=== PATIENT | male | born 1945 | race Caucasian/White ===

== ENCOUNTER 2024-04-25 04:41 | Inpatient (IN) | payer MEDICARE, SELFPAY ==
[2024-04-25] VITALS (20 sets, daily range): BP systolic 106–186; BP diastolic 42–104; BMI 30.1; BMI 29.8
--- NOTE | 2024-04-25 01:49 | ED.GENMED ---
History of Present Illness
<LASHA Castanon - Last Filed: 04/25/24 03:57>
General
Chief Complaint: Abdominal Pain
Source: patient
Time Seen by Provider: 04/25/24 01:15
Travel History
Have you had any contact with someone who has COVID-19?: No
Do you have any symptoms of coronavirus? Fever > 100 degrees, chills, cough, shortness of breath, sore throat, loss of taste or smell, muscle aches, or headache?: No
History of Present Illness
History of Present Illness:
79 year old male with hx of chronic back pain, autoimmune hepatitis, DM, s/p CABG with cardiac stents who presents with worsening RUQ abdominal pain that began at 1600 Thursday. Pain was initially dull at onset and is now sharp. States pain has been
constant but will spasm. Pain radiates down the R abdomen and is currently a 10/10. Pain worsens with deep breathing and movement. He has not taken anything for the pain. Pain is not associated with meals. He reports associated nausea. Admits to
diarrhea x 5 months, states he was treated with abx by PCP and currently taking fiber supplements with minimal improvement. Denies vomiting, constipation, chest pain, heartburn, SOB, increased belching, flank pain. Pt was last on Imuran in 2018 for
his autoimmune hepatitis. He is followed by GI and cardiology at [facility].
Review of Systems
<LASHA Castanon - Last Filed: 04/25/24 03:57>
Review of Systems
Allergies reviewed?: Yes
All Other Systems: ROS reviewed and negative except as documented in HPI and ROS
Constitutional: Reports no symptoms
EENT: Reports no symptoms
Respiratory: Reports no symptoms
Cardiac: Reports no symptoms
ABD/GI: Reports abdominal pain, nausea and diarrhea
: Reports no symptoms
Musculoskeletal: Reports back pain
Skin: Reports no symptoms
Neurological: Reports no symptoms
Endocrine: Reports no symptoms
Hematologic/Lymphatic: Reports no symptoms
Psychiatric: Reports no symptoms
Phy Exam
<LASHA Castanon - Last Filed: 04/25/24 03:57>
General Physical Exam
General Presentation: well appearing and no apparent distress
General age: appears stated age
General Skin: warm and dry
General Habitus: normal
General Mental: alert
General Hydration: appears well hydrated
Cardiovascular Exam
Cardiovascular Exam: regular rate/rhythm, no edema, no gallop and no murmur
Pulmonary Exam
Pulmonary Exam: lungs clear, no respiratory distress, no rales, no crackles, no rhonchi, no wheezing and no cough
Gastrointestinal Exam
Gastrointestinal Exam: normal bowel sounds, no organomegaly, no pulsatile mass, non distended and guarding
Palpation: right upper quadrant: Moderate tenderness
Skin Exam
Skin Exam: normal color and warm/dry
Psychiatric Exam
Psychiatric Exam: normal mood/affect
Course
<LASHA Castanon - Last Filed: 04/25/24 03:57>
Orders/Labs/Results
Orders:
Orders
04/25/24 01:36
CBC/With Diff [Complete Blood Count/With Diff] Urgent
CMP [Comprehensive Metabolic Panel] Urgent
Lipase Urgent
04/25/24 01:37
EKG [Electrocardiogram (*1)] Urgent
Reason for Study: Abdominal Pain
EKG- Treatment ONCE
04/25/24 02:10
0.9% Sodium Chloride 1000 ml [Nss] 1,000 ml IV 500 mls/hr
Morphine Sulfate 4 mg IV NOW STA
Ondansetron Injectable [Zofran] 4 mg IV NOW STA
04/25/24 02:11
CT Abd/pelvis W Iv Cont Urgent
Comment:
Reason For Exam: RUQ abd pain x 12 hours-progressive
04/25/24 04:12
Lactic Acid Urgent
04/25/24 04:28
Morphine Sulfate 4 mg IV NOW STA
04/25/24 04:29
Admit/Transfer Patient As Directed
Co-Sign Provider:
Level of Care: Inpatient admission
Assign to:: Medical/Surgical
Physician / Group: [email or web address]
Diagnosis: cecal volvulus
Reason for Hospitalization: cecal volvulus
Expected length of stay greater than two midnights?: Yes
ELOS- Estimated Length of Stay in days: 3
I certify the patient meets the requirements for IP care: Yes
Code Status As Directed
Resuscitation Status: Full Code
Abnormal Lab Results
04/25/24
01:36
WBC 13.8 H 10^3/uL
(4.8-10.8)
RBC 4.20 L 10^6/uL
(4.70-6.10)
Hct 37.3 L %
(39.0-52.0)
MCH 31.7 H pg
(27.0-31.0)
Abs Immat Gran (auto) 0.1 H 10^3/uL
(0-0.05)
Absolute Neuts (auto) 12.2 H 10^3/uL
(1.4-6.5)
Absolute Lymphs (auto) 0.5 L 10^3/uL
(1.2-3.4)
Absolute Monos (auto) 1.0 H 10^3/uL
(0.1-0.6)
Neutrophils % 88.3 H %
(42.2-75.2)
Lymphocytes % 3.8 L %
(20.5-51.1)
Carbon Dioxide 19 L mmol/L
(22-30)
BUN 21 H mg/dl
(9-20)
Creatinine 0.6 L mg/dL
(0.7-1.3)
Glucose 238 H mg/dl
(70-99)
AST 66 H U/L
(17-59)
04/25/24 01:36
04/25/24 01:36
Vital Signs
Initial and Last Documented VS:
Initial Vital Signs
Temp Pulse Resp BP Pulse Ox
98.3 F 58 24 186/80 95
04/25/24 00:57 04/25/24 00:57 04/25/24 00:57 04/25/24 00:57 04/25/24 00:57
Last Documented Vital Signs
Temp Pulse Resp BP Pulse Ox
98.3 F 71 23 186/80 92
04/25/24 00:57 04/25/24 02:30 04/25/24 02:30 04/25/24 00:57 04/25/24 02:15
<Crystal Willis, DO - Last Filed: 04/25/24 04:41>
Orders/Labs/Results
Orders:
Orders
04/25/24 01:36
CBC/With Diff [Complete Blood Count/With Diff] Urgent
CMP [Comprehensive Metabolic Panel] Urgent
Lipase Urgent
04/25/24 01:37
EKG [Electrocardiogram (*1)] Urgent
Reason for Study: Abdominal Pain
EKG- Treatment ONCE
04/25/24 02:10
0.9% Sodium Chloride 1000 ml [Nss] 1,000 ml IV 500 mls/hr
Morphine Sulfate 4 mg IV NOW STA
Ondansetron Injectable [Zofran] 4 mg IV NOW STA
04/25/24 02:11
CT Abd/pelvis W Iv Cont Urgent
Comment:
Reason For Exam: RUQ abd pain x 12 hours-progressive
04/25/24 04:12
Lactic Acid Urgent
04/25/24 04:28
Morphine Sulfate 4 mg IV NOW STA
04/25/24 04:29
Admit/Transfer Patient As Directed
Co-Sign Provider:
Level of Care: Inpatient admission
Assign to:: Medical/Surgical
Physician / Group: [email or web address]
Diagnosis: cecal volvulus
Reason for Hospitalization: cecal volvulus
Expected length of stay greater than two midnights?: Yes
ELOS- Estimated Length of Stay in days: 3
I certify the patient meets the requirements for IP care: Yes
Code Status As Directed
Resuscitation Status: Full Code
Abnormal Lab Results
04/25/24
01:36
WBC 13.8 H 10^3/uL
(4.8-10.8)
RBC 4.20 L 10^6/uL
(4.70-6.10)
Hct 37.3 L %
(39.0-52.0)
MCH 31.7 H pg
(27.0-31.0)
Abs Immat Gran (auto) 0.1 H 10^3/uL
(0-0.05)
Absolute Neuts (auto) 12.2 H 10^3/uL
(1.4-6.5)
Absolute Lymphs (auto) 0.5 L 10^3/uL
(1.2-3.4)
Absolute Monos (auto) 1.0 H 10^3/uL
(0.1-0.6)
Neutrophils % 88.3 H %
(42.2-75.2)
Lymphocytes % 3.8 L %
(20.5-51.1)
Carbon Dioxide 19 L mmol/L
(22-30)
BUN 21 H mg/dl
(9-20)
Creatinine 0.6 L mg/dL
(0.7-1.3)
Glucose 238 H mg/dl
(70-99)
AST 66 H U/L
(17-59)
04/25/24 01:36
04/25/24 01:36
Vital Signs
Initial and Last Documented VS:
Initial Vital Signs
Temp Pulse Resp BP Pulse Ox
98.3 F 58 24 186/80 95
04/25/24 00:57 04/25/24 00:57 04/25/24 00:57 04/25/24 00:57 04/25/24 00:57
Last Documented Vital Signs
Temp Pulse Resp BP Pulse Ox
98.3 F 71 23 186/80 92
04/25/24 00:57 04/25/24 02:30 04/25/24 02:30 04/25/24 00:57 04/25/24 02:15
<LASHA Castanon - Last Filed: 04/25/24 03:57>
MDM/Problems Addressed
Differential Diagnosis Includes:
biliary colic, cholecystitis, appendicitis, diverticulitis, SBO, volvulus
MDM/Problems Addressed:
79 year old male who presents with RUQ abdominal pain since 1599.
Chronic conditions affecting care: DM and CAD
<LASHA Castanon - Last Filed: 04/25/24 03:57>
*Critical Care Note
Total Time (30-74mins, 75-104mins- exclusive of procedures): Not Applicable
<Crystal Willis DO - Last Filed: 04/25/24 04:41>
*Radiology
Radiology exam reviewed: radiology read reviewed
*Pulse Oximetry
Patient hypoxic: no
*EKG
Interpreted by ED Provider?: Yes
Comparison EKG: no comparison EKG present
Rate: normal
Rhythm: sinus
[place]: normal axis
Interval: normal interval
QRS Pattern: normal QRS
Ischemia: non-specific ST changes
*[employer] Interpretation
Rate: normal
Interpretation: normal
Rhythm: sinus
ED Attending Note
<LASHA Castanon - Last Filed: 04/25/24 03:57>
-
Portions of this chart may have been created with voice recognition software.� Occasional wrong word or��sound alike� substitutions may have occurred due to the inherent limitations of voice recognition software.
<Crystal Willis DO - Last Filed: 04/25/24 04:41>
ED Attending Note
Patient seen and examined by attending physician: Yes
I performed the substantive portion of visit, reviewed & personally made and approve the management plan that is documented in note by myself or PRITI.: Yes
I performed a history and physical exam of patient and discussed management with resident, I reviewed resident's note and agree with documented findings and plan of care.: Yes
ED Attending Note:
This is a 79-year-old gentleman who complains of right upper quadrant pain that began somewhat abruptly around 4 PM yesterday has been persistent since that time. No history of similar episodes of pain. He does admit to intermittent waves of
nausea but has had no vomiting. No chest pain but right upper quadrant pain is worse when he takes a deep breath. No flank pain, no fevers or chills. He did pass a small soft stool yesterday. No dysuria no urgency nor hematuria, no cough nor
chest pain.
Patient states he was sitting at [facility] for 4 to 5 hours and was told there would be an additional 4 to 5-hour wait thus his son picked him up and brought him to [place] where the son lives locally. Patient himself resides in
[place].
He has history of CAD status post CABG 2015 and underwent PTCA with stent December of this year. Plavix was started after stent and then a few weeks after this was noted to have paroxysmal atrial fibrillation and was started on Eliquis at that time.
He has prior history of autoimmune hepatitis noted with elevated LFTs without abdominal pain. Follows with GI at [facility] and was treated with several month course of oral steroids and 2 to 3 years of Imuran which was discontinued
in 2018. No recurrent episodes of hepatitis.
He has history of iig-lkwltos-wphfafmis diabetes, hypertension, hyperlipidemia, BPH. History of kidney stones and renal cysts. Current pain feels quite different from previous episodes of renal colic.
He is a non-smoker.
He admits to occasional alcohol.
He has not taken anything for pain.
GENERAL: 79-year-old gentleman appears his stated age, awake and alert, pleasant, appears moderately uncomfortable but cooperative.
EYE: anicteric
NECK: Supple, nontender, no meningismus, no significant adenopathy.
ENT: oral mucosa is minimally dry. No rhinorrhea.
CARDIAC: Regular rate and rhythm. no murmur.
LUNGS: Clear breath sounds bilaterally, no acute respiratory distress, no wheezes/rales/rhonchi
ABDOMEN: Rotund, soft, nondistended, exquisite tenderness right upper quadrant as well as moderate tenderness right lateral mid abdomen and mild tenderness right lower quadrant. Mild guarding right upper quadrant without rebound nor rigidity, no
cvat. normoactive BS.
NEUROLOGICAL: Alert and oriented x3, no focal neuro deficits.
SKIN: Warm and dry, normal color, skin intact. No rash.
MUSCULOSKELETAL: No C/C/E. peripheral pulses are full and equal b/l. No palpable tenderness.
PSYCH: Normal and appropriate interaction.
Concern for acute cholecystitis, right-sided diverticulitis, acute appendicitis. Other consideration is ischemic bowel, kidney stone/pyelonephritis. Pneumonia, right pleural effusion are much less likely.
Other consideration is recurrent autoimmune hepatitis.
Labs are pending.
Will medicate for pain, initiate IV fluids and plan for CT abdomen pelvis with IV contrast.
04/25/2024 04:01 AM
CAT scan shows cecal volvulus looped into the right upper quadrant with moderate dilation of the cecum. There is a swirling in the ascending mesocolon but no small bowel obstruction. No free air. Bilateral simple renal cyst. No hydronephrosis.
Patient is moderately more comfortable after an IV dose of morphine. IV fluids infusing.
Due to cecal volvulus, concern for potential ischemic bowel thus will check lactic acid.
Will consult general surgery and due to multiple medical issues, Will plan to admit to hospitalist service.
Discharge Plan
Departure
Patient Disposition: Admit
Date of Disposition: 04/25/24
Time of Disposition: 04:01
Admit to: Med/Surg
Admit to doctor: Mercedezy
Presentation/result/management discussed w/ accepting MD/DO: Hospitalist
Condition: Serious
Discharge Problem:
Cecal volvulus
Referrals:
UNKNOWN - PT DOES,NOT KNOW [Unknown Provider] -
Interventions
Interventions:
*Risk Screen - Suicide Last Done: 04/25/24 00:57
*General Assessment Last Done: 04/25/24 01:10
*Neglect/Abuse Screening Last Done: 04/25/24 00:57
ED- Fall Risk Assessment Last Done: 04/25/24 02:10
XV-Irijsc-Dyitskzgzn Assessment Last Done: 04/25/24 02:10
Discharge Date and Time
Print Language: GREEK
[2024-04-25 01:50] LABS: % Basophils 0.2 % (0-2); % Immature Granulocytes 0.4 % (0-0.5); % Lymphocytes 3.8 % (20.5-51.1); % Monocytes 7.3 % (1.7-9.3); % Neutrophils 88.3 % (42.2-75.2); Absolute Immature Granulocytes 0.1 10^3/uL (0-0.05); Absolute Lymphocytes 0.5 10^3/uL (1.2-3.4); Absolute Neutrophils 12.2 10^3/uL (1.4-6.5); Hematocrit 37.3 % (39.0-52.0); Hemoglobin 13.3 g/dL (13.0-18.0); Mean Corp Hgb Conc. 35.7 g/dL (33.0-37.0); Mean Corpuscular Hgb 31.7 pg (27.0-31.0); Mean Corpuscular Volume 88.8 fL (80.0-94.0); Mean Platelet Volume 9.6 fL (7.4-10.4); Nucleated Red Blood Cells % 0 % (-); Platelet Count 224 10^3/uL (130-400); Red Cell Dist. Width 13.8 % (11.5-14.5); White Blood Cell Count 13.8 10^3/uL (4.8-10.8)
[2024-04-25 02:07] LABS: ALT (SGPT) 49 U/L (0-50); AST (SGOT) 66 U/L (17-59); Albumin 4.6 g/dl (3.5-5.0); Alkaline Phosphatase 109 U/L (38-126); Blood Urea Nitrogen 21 mg/dl (9-20); Calcium 9.4 mg/dl (8.4-10.2); Carbon Dioxide 19 mmol/L (22-30); Chloride 107 mmol/L (98-107); Glucose 238 mg/dl (70-99); Lipase 41 U/L (23-300); Potassium 4.9 mmol/L (3.5-5.1); Sodium 138 mmol/L (135-145); Total Bilirubin 1.2 mg/dl (0.2-1.3); Total Protein 7.8 g/dl (6.3-8.2); eGFR > 60.00
[2024-04-25] MEDS: NSS 1000 IV ×2 (02:17→06:31)
[2024-04-25] MEDS: MORPHINE SULFATE 4 MG IV ×2 (02:17→04:31)
[2024-04-25] MEDS: ZOFRAN 4 MG IV (02:18)
--- NOTE | 2024-04-25 04:24 | HPS.HSE ---
Addendum entered and electronically signed by Rocky Beach MD 04/25/24 06:24:
DX: Cecal Volvulus
HX PCN allergy
Spiked T 101
No tachycardic
Tender RLQ with guarding
elevated WCC
- concern for sepsis
- BCx stat
- IV Aztreonam and IV Metronidazole
- Await Surgery evaluation
Original Note:
Family Physician
-
Family Physician: Bora Garcia
Chief Complaint
-
abdominal pain
History of Present Illness
79M HX PHX chronic LBP, autoimmune hepatitis, DM, s/p CABG with cardiac stents seen at ER:
Evaluation of Rt sided abdominal pain
- acute onset sice Sun day evening
- Initially RUQ pain - colicky but persistent then radiating to R abdomen
- associated nausea
- Denied emesis , constipation
- POS diarrhea for 5 months and taking fiber supplements with minimal improvement
Medical History
Past Medical History
Past Medical History: Reports Other
Additional Past Medical History:
Chronic LBP, autoimmune hepatitis, DM, s/p CABG with cardiac sten
Past Surgical History: Reports Other
Additional Past Surgical History:
s/p CABG with cardiac stents
Social History
Tobacco: Non-smoker
Alcohol: None
Drug: None
Family History
Family History: Not pertinent
Allergies / Home Medications
Allergies reflects when Allergies were last updated in [facility].
Home Medications with original date entered in [facility]
Allergy/Medication List:
Allergies
Allergy/AdvReac Type Severity Reaction Status Date / Time
Penicillins Allergy Unknown Verified 04/25/24 01:02
Pending Rx reconciliation
Review of Systems
-
Constitutional: Reports No Symptoms
EENT: Reports No Symptoms
Respiratory: Reports No Symptoms
Cardiac: Reports No Symptoms
Abdomen/GI: Reports See HPI
: Reports No Symptoms
Musculoskeletal: Reports No Symptoms
Skin: Reports No Symptoms
Neurological: Reports No Symptoms
Endocrine: Reports No Symptoms
Hematologic/Lymphatic: Reports No Symptoms
Psych: Reports No Symptoms
Physical Exam
Vital Signs
Vital Signs
Temp Pulse Resp BP Pulse Ox
98.3 F 71 23 186/80 92
04/25/24 00:57 04/25/24 02:30 04/25/24 02:30 04/25/24 00:57 04/25/24 02:15
Physical Exam
General: No Apparent Distress
HEENT: Anicteric
Respiratory: Clear
Cardiac: S1/S2 and Regular Rhythm; No Murmur
Breast: Deferred by me
GI: Soft, Non Distended, Tender (at Rt abdomen ) and Other ( Mild guarding at RUQ without rebound )
Rectal: Deferred by Provider
Genito-urinary: Deferred by me
Musculoskeletal: No Edema
Skin: Warm and Dry
Neuro: AO x 3
Psych: Calm
Laboratory Results
-
04/25/24 01:36
04/25/24 01:36
Laboratory Results
Total Bilirubin 1.2 mg/dl (0.2-1.3) 04/25/24 01:36
AST 66 U/L (17-59) H 04/25/24 01:36
ALT 49 U/L (0-50) 04/25/24 01:36
Alkaline Phosphatase 109 U/L (38-126) 04/25/24 01:36
Lipase 41 U/L (23-300) 04/25/24 01:36
Data Reviewed
-
Diagnostic Radiology: Discussed with Physician
Lab Data: Labs Reviewed by me
Impression/Plan
-
Reviewed VS: afebrile BP180/80
Data
WCC 13.8
Hgb 13.3
CO2 19
nl Cr nl eGFR
BG 238
Pending LA
AST [address] AP: Cecal volvulus. Moderate dilation of cecum.
NO PRIOR DH admission:
ASSESSMENT & PLAN
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
Tender RLQ > RUQ
- NPO and IVF
- PRN narcotic analgesia
- GS consulted
HX autoimmune hepatitis.
- last on Imuran in 2018
- followed by GI at [facility].
DM
- add ISS low
HX CABG with cardiac stents
- Pending Rx reconciliation
- f/u with card at [facility]
DVT Px: SCD
Code: Full
Ip MS
[2024-04-25 04:36] LABS: Lactic Acid 1.5 mmol/L (0.7-2.0)
[2024-04-25] MEDS: FLAGYL 500 MG 100 IV ×3 (06:32→22:39)
[2024-04-25] MEDS: STERILE WATER FOR INJECTION 10 ML IV ×3 (06:33→20:30)
[2024-04-25] MEDS: AZACTAM 1000 MG IV ×2 (06:33→14:17)
--- NOTE | 2024-04-25 09:03 | PTCARENOTE ---
Patient to OR for open right colectomy
--- NOTE | 2024-04-25 09:20 | WOUNDNOTE ---
[facility] RN note: AARON Krueger requested stoma marking for patient. Dr. Jiang stated R side stoma marking. Patient seen in OR holding area. Stoma marked patient RUQ over the rectus muscle avoiding skin creases and rib cage. RLQ not advisable d/t
high potential for post top deep skin creases with pouch leakage. Patient stoma marked in lying and sitting positions. RUQ stoma shayla 5.5cm to R of midline and 9.1cm above umbilical line. Patient instructed the surgeon makes the final decision with
stoma placement. Updated Dr. Jiang and Karley via tiger text. Patient stated he lives alone but he may stay with one of his daughters after discharge depending on his needs.
--- NOTE | 2024-04-25 09:37 | CON.MD ---
Consultation - Medical
-
Full consult to be dictated.
History, vitals, labs, imaging reviewed. Patient seen and examined.
79-year-old male without prior abdominal surgical history on both Xarelto and Plavix for cardiovascular issues with acute cecal volvulus confirmed on imaging. He is very tender in the right side and has a low-grade temperature of 101 Fahrenheit.
He has no prior history of GI issues. I discussed the situation with the patient in detail. Recommended a trip to the operating room for exploration and probable right colectomy/partial bowel resection and possible stoma. Risk and benefits
discussed. Risk described included but are not limited to bleeding, infection, anastomotic leak, anastomotic stricture, ureteral injury, bowel or solid organ injury, hernia formation, recurrence and anesthetic risk. I emphasized, given his
anticoagulants that he is at higher risk for intraoperative and postoperative bleeding. Will attempt to temporize this medically. All questions answered. Patient agrees to proceed. I did also via phone update the patient's next of kin, his son.
Thanks.
[2024-04-25] MEDS: OFIRMEV IV (10:18)
--- NOTE | 2024-04-25 11:48 | CM ---
Patient currently off the unit in the OR
--- NOTE | 2024-04-25 12:39 | W.IMMPOSTOP ---
Surgical Immed Post Op Note
-
Primary Surgeon: Kenrick Jiang MD
Assisting Surgeon: Karley Davis PA-C
Pre-op Diagnosis: Cecal volvulus
Post-op Diagnosis: Cecal volvulus
Procedure Performed: open right colectomy
Anesthesia Type: general
Specimen / Cultures: none
Estimated Blood Loss: 50ml
Complications: none
Operative Findings: consistent with cecal volvulus, distended ischemic cecum without evidence for perforation
[2024-04-25 13:19] LABS: % Basophils 0.3 % (0-2); % Eosinophils 0.6 % (0-6); % Immature Granulocytes 0.4 % (0-0.5); % Lymphocytes 5.5 % (20.5-51.1); % Monocytes 8.4 % (1.7-9.3); % Neutrophils 84.8 % (42.2-75.2); Absolute Eosinophils 0.1 10^3/uL (0-0.7); Absolute Immature Granulocytes 0.1 10^3/uL (0-0.05); Absolute Lymphocytes 0.8 10^3/uL (1.2-3.4); Absolute Monocytes 1.2 10^3/uL (0.1-0.6); Absolute Neutrophils 12.2 10^3/uL (1.4-6.5); Hematocrit 41.3 % (39.0-52.0); Hemoglobin 14.4 g/dL (13.0-18.0); Mean Corp Hgb Conc. 34.9 g/dL (33.0-37.0); Mean Corpuscular Hgb 31.6 pg (27.0-31.0); Mean Corpuscular Volume 90.8 fL (80.0-94.0); Nucleated Red Blood Cells % 0 % (-); Platelet Count 217 10^3/uL (130-400); Red Blood Cell Count 4.55 10^6/uL (4.70-6.10); Red Cell Dist. Width 14.2 % (11.5-14.5); White Blood Cell Count 14.3 10^3/uL (4.8-10.8)
[2024-04-25 13:22] LABS: Blood Urea Nitrogen 17 mg/dl (9-20); Calcium 8.3 mg/dl (8.4-10.2); Carbon Dioxide 22 mmol/L (22-30); Chloride 106 mmol/L (98-107); Estimated Creatinine Clearance 110 ml/min; Glucose 203 mg/dl (70-99); Potassium 4.6 mmol/L (3.5-5.1); Sodium 137 mmol/L (135-145); eGFR > 60.00
[2024-04-25 13:29] LABS: APTT 28.2 Sec (23.4-35.0); INR 1.15; PT 14.5 Sec (11.4-14.6)
[2024-04-25 13:47] LABS: Glucose - Point of Care 195 mg/dl (70-99)
[2024-04-25] MEDS: NORMOSOL-R 1000 IV (13:57)
[2024-04-25] MEDS: NOVOLOG vial 100 UNITS SC (14:00)
--- NOTE | 2024-04-25 14:32 | W.PN.HOSP.TC ---
Today's Communication/Plan
-
Add IV BB
Post OP EKG
Watch for any bleeding
NPO IVF
If has BP drop needs H and H
Assessment / Plan
Assessment / Plan
79-year-old with acute right-sided abdominal pain
CT abdomen and pelvis. Cecal volvulus in the right upper quadrant with moderate colonic distention and fecal material. Free fluid in the abdomen and pelvis likely reactive. Nonvisualization of the appendix. Findings suggestive of Meckel's
diverticulum with noncompaction. Nonobstructive bilateral renal stones. Bilateral simple renal cyst. Mild proximal hypertrophic. Mild diffuse bladder wall thickening suggesting cystitis. Moderate hiatal hernia. Bilateral lower lobe and
lingular atelectasis
Seen in PACU. Denies chest pain or shortness of breath
CVS: S1-S2 normal
Chest: CTA B/L
Abdomen: Midline laparotomy wound with Aquacel
Extremities: No edema
CRABBER: Non focal exam
# Fever-check cultures
No lactic acidosis
Source unclear likely abdomen
On Azactam and Flagyl
add Vanco
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
Emergency surgery
Open right hemicolectomy-Detail/operative reports not available at this time
N.p.o. with IV fluids
Patient given Kcentra
Holding Eliquis and Plavix
High risk for bleeding given above
# History of autoimmune hepatitis
Followed at [place]
Last dose of Imuran was in 2018
AST elevation noted
# Coronary artery disease with history of CABG and cardiac stents
Follows with hunter at [place]
On Plavix-hold
On Imdur 60 mg daily, losartan 50 mg daily, metoprolol 50 mg daily, rosuvastatin 20 mg daily as outpatient
Hold as NPO
EKG sinus rhythm with nonspecific ST-T changes
Repeat EKG postop
# Diabetes-hold Januvia as n.p.o.
Sliding scale coverage with Accu-Cheks
#Paroxysmal Afib- Hold Eliquis . Add IV BB
# Hypertension-on losartan 50 mg daily and metoprolol 50 mg daily as outpatient
Hold as NPO
# Prostate disease-on finasteride and tamsulosin as outpatient
Hold while NPO
# Hyperlipidemia-on rosuvastatin as outpatient
Hold while NPO
# DVT prophylaxis-SCDs
# Full code
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
D/W Colorectal
Anticipated Discharge: > 48 hours
Subjective/Interval History
-
Date of Service: April 25, 2024
Objective Data
-
Labs:
Laboratory Results
04/25/24
12:56
WBC 14.3 H
Hgb 14.4
Hct 41.3
Plt Count 217
PT 14.5
INR 1.15
APTT 28.2
Sodium 137
Potassium 4.6
Chloride 106
Carbon Dioxide 22
BUN 17
Creatinine 0.5 L
Glucose 203 H
Calcium 8.3 L
Vital Signs:
Vital Signs
Temp Pulse Resp BP Pulse Ox
99.0 F 70 17 111/43 95
04/25/24 14:20 04/25/24 14:15 04/25/24 14:15 04/25/24 14:15 04/25/24 14:20
I&O
04/24/24 04/25/24 04/26/24
06:59 06:59 06:59
Intake Total 330 / 330
Output Total 3 / 3
Balance 327 / 327
--- NOTE | 2024-04-25 14:56 | CON.ID ---
Consultation
-
Date/Time Consultation Requested: April 25, 2024 1442
Date/Time Consultation Performed: April 25, 2024 1500
Requesting Provider: Dr. Aryan Arriaza
Performing Provider: Dr. Kristina Napier
Reason for Consultation: Volvulus
Chief Complaint / Past History
Chief Complaint
Abdominal pain
History of Present Illness
79-year-old male with diabetes mellitus, paroxysmal atrial fibrillation, autoimmune hepatitis off of Imuran since 2018, CAD, BPH, who presented to the hospital last night due to acute onset of severe right abdominal pain. He reports a 5-month
history of diarrhea treated with courses of antibiotics then fiber supplement by his PCP. Last colonoscopy was slightly over 5 years ago. He developed acute onset of severe right lower abdominal pain yesterday. Pain then extended up and across
his abdomen. Positive nausea. No vomiting. No fever at home. In the ER he did have temperature 101.4. White count was 13.8. CAT scan shows cecal volvulus with moderate colonic distention and fecal material. He just came back from right
hemicolectomy.
Past History
Additional Past Medical History:
DM
CAD s/p CABG/stents
Autoimmune hepatitis off Imuran since 2018
paroxysmal Afib
HTN
BPH
HLD
nephrolithiasis hx lithotripsy
Right RTC repair
left shoulder reverse total arthroplasty
Allergy History:
Penicillins Allergy (Verified 04/25/24 01:02)
Unknown
Medications Reviewed: Yes
Current Antibiotics:
Vancomycin (not yet given)
Aztreonam
Metronidazole
Social History
Tobacco: Non-Smoker
Alcohol: None
Drug: None
Family History
Family History: Not Pertinent
Review of Systems
Review of Systems
General: Change in Appetite
HEENT: Negative Sinus Problems or Headache
Cardiovascular: Negative Chest Pain
Respiratory: Negative Dyspnea or Cough
Gasteroenterology: Other (no diarrhea today); Negative Vomiting
Genital / Urological: Negative Dysuria or Flank Pain
Endocrine: Weakness
Skin / Hair / Nails: Negative Rash
Neurological: Negative Headache or Dizziness
All systems: All other systems were reviewed and were negative
Vital Signs
Temp Pulse Resp BP Pulse Ox
99.0 F 70 17 111/43 95
04/25/24 14:20 04/25/24 14:15 04/25/24 14:15 04/25/24 14:15 04/25/24 14:20
Selected Entries
04/25/24
07:05
Temp 101.4 F H
Physical Exam
Physical Exam
Constitutional: No Acute Distress and Comfortable
Eyes: Sclera Anicteric
Cardiovascular: Regular Rate and S1/S2
Pulmonary: Clear (anterior)
Gastrointestinal: Soft, Decreased Bowel Sounds and Other (dressing dry)
Extremities: Negative Edema
Neurological: AO x 3
Lab / Diagnostic Study Results
04/25/24 12:56
04/25/24 12:56
Abs Immat Gran (auto) 0.1 10^3/uL (0-0.05) H 04/25/24 12:56
Absolute Neuts (auto) 12.2 10^3/uL (1.4-6.5) H 04/25/24 12:56
Absolute Lymphs (auto) 0.8 10^3/uL (1.2-3.4) L 04/25/24 12:56
Absolute Monos (auto) 1.2 10^3/uL (0.1-0.6) H 04/25/24 12:56
Absolute Basos (auto) 0.0 10^3/uL (0-0.2) 04/25/24 12:56
Immature Gran % 0.4 % (0-0.5) 04/25/24 12:56
Neutrophils % 84.8 % (42.2-75.2) H 04/25/24 12:56
Lymphocytes % 5.5 % (20.5-51.1) L 04/25/24 12:56
Monocytes % 8.4 % (1.7-9.3) 04/25/24 12:56
Eosinophils % 0.6 % (0-6) 04/25/24 12:56
Basophils % 0.3 % (0-2) 04/25/24 12:56
PT 14.5 Sec (11.4-14.6) 04/25/24 12:56
INR 1.15 04/25/24 12:56
Lactic Acid 1.5 mmol/L (0.7-2.0) 04/25/24 04:12
Microbiology Results
Micro:
04/25/24 06:41 Blood Culture - Pending
Blood/Venous
04/24/2024: CT a/p: Findings suggesting cecal volvulus in the right upper quadrant with moderate colonic distention and fecal material. Mild free fluid in the abdomen and pelvis likely reactive. Findings suggesting a Meckel's diverticulum. No evidence
of inflammation.
Assessment / Plan
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
# Fever, leukocytosis
- Await OR findings ?perf/infection
- Obtain 2nd set of blood cx
- Replace Aztreonam with Cefepime
- Continue metronidazole
- No need for Vancomycin at this time.
-Trend temps/wbc.
--- NOTE | 2024-04-25 15:07 | CM ---
Spoke with patient's son, Hernando Arce #[phone] via phone; initial assessment completed
Pharmacy verified: [facility]
Admitted with Cecal volvulus; s/p surgery; just returned to his room
Per son, patient lives alone in a 3 story townhouse in [place], [place]; home has powder room on the main level; bedroom and bath on upper level of home; bathroom has walk-in shower with grab bar and seat
Per son, patient will stay with him and his in their home in [facility] when he is discharged from the hospital; home has a Ramp to enter; patient will have a bedroom and bathroom on the 1st floor
PLOF: patient's baseline is independent with ADLs, ambulation, and stairs; drives; participates in Cardiac Rehab @ [facility] (Cardiac Stents 12/2022)
DME: [employer]
SNF/Home Health utilization history: none
Transport: son will transport to his home
Plan: discharge plan to be determined pending hospital course; will monitor for DC needs
--- NOTE | 2024-04-25 15:13 | PTCARENOTE ---
Patient received from PACU in bed; IVF infusing; Surgical site assessed with FACILITIES OPERATOR, midline abdominal aquacell with scant amount of drainage; NGT to Left nare with brown output; Patient denies nausea/vomiting at this time; Patient states pain is
an 'ache' and is tolerable; Indwelling urinary catheter in place with clear yellow urine; Son at bedside; Patient awake and alert; Bed in lowest position, wheels locked; Call cristobal within reach; Assessment ongoing
--- NOTE | 2024-04-25 16:58 | CON.CAR ---
Addendum entered and electronically signed by Gabriella Quintanilla DO 05/05/24 17:01:
Late entry
I saw and examined the patient on day of consultation with cardiac PA
The Pcm[facility] Specialist's note was reviewed and I agree with the note.
Comment: Patient came to [facility] very early this morning with abdominal pain and was admitted with acute cecal volvulus and cardiology has been consulted for possible post-op atrial fibrillation. Patient has a past medical history significant for
coronary artery disease status post CABG and stents, hypertension, hyperlipidemia, paroxysmal atrial fibrillation on chronic anticoagulation with Eliquis. Patient was found to have acute cecal volvulus on imaging. He was also noted to have fever,
Tmax 101.4. Patient was taken emergently to the OR and underwent open right colectomy on 04/25/2024. Patient says Afib was diagnosed after he wore a week long heart monitor following PCI in 12/2023. He was noted to have Afib and was started on
Eliquis at that time. He was continued on Plavix as well, but aspirin was stopped when Eliuquis was added. Last dose of Eliquis was 04/24/24 AM. Given he was on anticoagulation he was given Kcentra.
General: Seen postop, lying supine with minimal postop pain
Neck: mmm
Heart: Regular, positive S1 /S2. 2/6 SM
Lungs: Decreased breath sounds bilaterally but clear
Abd: Distended abdomen with surgical dressing in place. Decreased bowel
Ext: No edema
Neuro: nonfocal
Plan:
Acute abdominal pain with cecal volvulus status post emergent open right colectomy 04/25/2024
-Postop surgical management per colorectal surgery
-Hold antiplatelets and anticoagulation postop
History of PAF on outpatient Eliquis
-Last dose 04/24/2020 4 in the morning status post Kcentra
-currently in sinus rhythm with history of PAF
-Monitor on telemetry
-Eventually resume anticoagulation when safer from a postoperative standpoint
Coronary artery disease status post CABG at [facility] in 2015 and PCI at [facility] December 2023
-No chest pain suggestive of angina
-No heart failure symptoms
-Plavix currently held; resume soon as possible given recent stent
Will follow with
Original Note:
Consultation
Consultation Request
Date/Time Consultation Requested: 04/25/2024
Date/Time Consultation Performed: 04/25/2024
Requesting Provider: Dr. Arriaza
Performing Provider: Jeanne Post PA-C for Dr. Quintanilla
Reason for Consultation: Atrial fibrillation
Medical History
-
History of Present Illness:
Patient came to [facility] very early this morning with abdominal pain and was admitted with acute cecal volvulus and cardiology has been consulted for possible post-op atrial fibrillation. Patient has a past medical history significant for coronary
artery disease status post CABG and stents, hypertension, hyperlipidemia, paroxysmal atrial fibrillation on chronic anticoagulation with Eliquis. Patient was found to have acute cecal volvulus on imaging. He was also noted to have fever, Tmax
101.4. Patient was taken emergently to the OR and underwent open right colectomy on 04/25/2024. Patient says Afib was diagnosed after he wore a week long heart monitor following PCI in 12/2023. He was noted to have Afib and was started on Eliquis at
that time. He was continued on Plavix as well, but aspirin was stopped when Eliuquis was added. Last dose of Eliquis was 04/24/24 AM. Given he was on anticoagulation he was given Kcentra. Patient denies palpitations post-op. Tele reviewed and it
appears to be baseline artifact on ECG.
PMH:
Paroxysmal atrial fibrillation
Chronic anticoagulation on Eliquis
DM
CAD
s/p CABG at [facility] 2015
s/p PCI at [facility] 12/2023
Autoimmune hepatitis off Imuran since 2018
HTN
BPH
HLD
Chronic low back pain
nephrolithiasis hx lithotripsy
Right RTC repair
left shoulder reverse total arthroplasty
Past Medical History
Past Medical History: Other
Past Surgical History: Other (Kidney stones with lithotripsy, left shoulder reverse total arthroplasty, Right RTC repair)
Social History
Tobacco: Non-Smoker
Alcohol: None
Drug: None
Personal:
Living: With Family
Family History
Family History: Reviewed & Not Pertinent
Allergies / Home Medications
Allergy/AdvReac Type Severity Reaction Status Date / Time
Penicillins Allergy hives age Verified 04/25/24 15:14
5;
tolerated
cephalosporins
�Medication �Instructions �Recorded �Confirmed �Type
apixaban 5 mg tablet (Eliquis) 5 mg PO DAILY 04/25/24 04/25/24 History
clopidogrel 75 mg tablet 75 mg PO DAILY 04/25/24 04/25/24 History
finasteride 5 mg tablet 5 mg PO DAILY 04/25/24 04/25/24 History
isosorbide mononitrate 60 mg 60 mg PO DAILY 04/25/24 04/25/24 History
tablet,extended release 24 hr
losartan 50 mg tablet 50 mg PO DAILY 04/25/24 04/25/24 History
metoprolol succinate 50 mg 50 mg PO DAILY 04/25/24 04/25/24 History
tablet,extended release 24 hr
paroxetine HCl 20 mg tablet 20 mg PO HS 04/25/24 04/25/24 History
rosuvastatin 20 mg tablet 20 mg PO DAILY 04/25/24 04/25/24 History
sitagliptin phosphate 100 mg 100 mg PO DAILY 04/25/24 04/25/24 History
tablet (Januvia)
tamsulosin 0.4 mg capsule 0.8 mg PO DAILY 04/25/24 04/25/24 History
Review of Systems
-
History Source: Patient
All other systems: Negative unless noted
Physical Exam
Vital Signs
Temp Pulse Resp BP Pulse Ox
99.3 F 70 17 111/71 93
04/25/24 15:40 04/25/24 15:40 04/25/24 15:40 04/25/24 15:40 04/25/24 15:40
Lab Results
04/25/24 12:56
04/25/24 12:56
Impression / Plan
-
Primary care physician: Bora Garcia
Outpatient x ray technologist: Dr. Gael Mason at [facility] [phone]
Impression:
Presents 04/25/2024 with acute abdominal pain x 1 day
Acute cecal volvulus
s/p emergent right hemicolectomy 04/25/2024
Fever
Leukocytosis
Paroxysmal atrial fibrillation
Chronic anticoagulation on Eliquis
DM
CAD
s/p CABG at [facility] 2015
s/p PCI at [facility] 12/2023
Autoimmune hepatitis off Imuran since 2018
HTN
BPH
HLD
Chronic low back pain
nephrolithiasis hx lithotripsy
Right RTC repair
left shoulder reverse total arthroplasty
Plan:
-Patient came to [facility] very early this morning with abdominal pain and was admitted with acute cecal volvulus and cardiology has been consulted for possible post-op atrial fibrillation. Patient has a past medical history significant for coronary
artery disease status post CABG and stents, hypertension, hyperlipidemia, paroxysmal atrial fibrillation on chronic anticoagulation with Eliquis. Patient was found to have acute cecal volvulus on imaging. He was also noted to have fever, Tmax
101.4. Patient was taken emergently to the OR and underwent open right colectomy on 04/25/2024. Patient says Afib was diagnosed after he wore a week long heart monitor following PCI in 12/2023. He was noted to have Afib and was started on Eliquis at
that time. He was continued on Plavix as well, but aspirin was stopped when Eliuquis was added. Last dose of Eliquis was 04/24/24 AM. Given he was on anticoagulation he was given Kcentra. Patient denies palpitations post-op. Tele reviewed and it
appears to be baseline artifact on ECG.
-Presents 04/25/2024 with acute abdominal pain x 1 day with fevers, leukocytosis and found to have acute cecal volvulus.
-Status post emergent right hemicolectomy 04/25/2024
-Patient currently on metronidazole and started on cefepime. Blood cultures pending. Being followed closely by ID
-Known history of paroxysmal atrial fibrillation as outpatient maintained on anticoagulation with Eliquis and Toprol. Follow on tele, no evidence of Afib thus far after tele and ECG reviews by me.
-Patient given Kcentra 04/25/2024 prior to emergent right hemicolectomy
-Eliquis and Plavix currently on hold as patient immediately postoperative. Would like to resume Plavix as soon as possible given PCI 12/2023. Can wait to resume Eliquis until cleared by surgery team.
[2024-04-25] MEDS: LOPRESSOR 2.5 MG IV ×2 (17:33→23:49)
[2024-04-25] MEDS: OFIRMEV 100 IV ×2 (17:33→23:51)
[2024-04-25] MEDS: MAXIPIME 2000 MG IV (20:30)
[2024-04-25 23:45] LABS: Troponin I 0.015 ng/ml
[2024-04-26] VITALS (7 sets, daily range): BP systolic 96–143; BP diastolic 45–66; O2SAT 98; BMI 29.9
[2024-04-26] MEDS: NORMOSOL-R 1000 IV ×2 (01:50→15:24)
[2024-04-26] MEDS: OFIRMEV 100 IV (05:12)
[2024-04-26] MEDS: LOPRESSOR 2.5 MG IV ×3 (05:15→23:48)
[2024-04-26] MEDS: FLAGYL 500 MG 100 IV (05:31)
[2024-04-26 05:35] LABS: % Basophils 0.2 % (0-2); % Immature Granulocytes 0.6 % (0-0.5); % Lymphocytes 12.8 % (20.5-51.1); % Monocytes 7.5 % (1.7-9.3); % Neutrophils 78.9 % (42.2-75.2); Absolute Immature Granulocytes 0.1 10^3/uL (0-0.05); Absolute Lymphocytes 1.5 10^3/uL (1.2-3.4); Absolute Monocytes 0.9 10^3/uL (0.1-0.6); Hematocrit 32.2 % (39.0-52.0); Hemoglobin 11.2 g/dL (13.0-18.0); Mean Corp Hgb Conc. 34.8 g/dL (33.0-37.0); Mean Corpuscular Hgb 31.8 pg (27.0-31.0); Mean Corpuscular Volume 91.5 fL (80.0-94.0); Mean Platelet Volume 9.3 fL (7.4-10.4); Nucleated Red Blood Cells % 0 % (-); Platelet Count 176 10^3/uL (130-400); Red Blood Cell Count 3.52 10^6/uL (4.70-6.10); Red Cell Dist. Width 14.2 % (11.5-14.5); White Blood Cell Count 11.5 10^3/uL (4.8-10.8)
[2024-04-26 06:06] LABS: ALT (SGPT) 29 U/L (0-50); AST (SGOT) 27 U/L (17-59); Albumin 2.8 g/dl (3.5-5.0); Alkaline Phosphatase 76 U/L (38-126); Blood Urea Nitrogen 16 mg/dl (9-20); Calcium 8.3 mg/dl (8.4-10.2); Carbon Dioxide 25 mmol/L (22-30); Chloride 107 mmol/L (98-107); Estimated Creatinine Clearance 110 ml/min; Glucose 142 mg/dl (70-99); Potassium 4.1 mmol/L (3.5-5.1); Sodium 136 mmol/L (135-145); Total Bilirubin 0.8 mg/dl (0.2-1.3); Total Protein 5.4 g/dl (6.3-8.2); eGFR > 60.00
--- NOTE | 2024-04-26 09:30 | W.PN.ID1 ---
Date of Service
Date of Service: April 26, 2024
Today's Communication
DC abx and observe.
Assessment / Plan
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
-OR finding ischemic bowel without perforation.
# Fever, leukocytosis: resolving
- Reactive due to ischemic bowel.
- DC cefepime/metronidazole.
#Additional Past Medical History:
DM
CAD s/p CABG/stents
Autoimmune hepatitis off Imuran since 2018
paroxysmal Afib
HTN
BPH
HLD
nephrolithiasis hx lithotripsy
Right RTC repair
left shoulder reverse total arthroplasty
Chief Complaint
-: Fever and Leukocytosis
Subjective / Review of Systems
Feels well today. No pain.
Vital Signs / Physical Exam
Vital Signs
Vital Signs
Temp Pulse Resp BP Pulse Ox
98.2 F 71 16 108/47 92
04/26/24 07:20 04/26/24 07:20 04/26/24 07:20 04/26/24 07:20 04/26/24 07:20
Physical Exam
Constitutional: No Acute Distress and Comfortable
Cardiovascular: Regular Rate and S1/S2
Pulmonary: Clear
Gastrointestinal: Soft, Non Tender, Non Distended and Decreased Bowel Sounds
Extremities: Negative Edema
Neurological: AO x 3
Objective Data
Lab Data
Lab Results
04/26/24 05:12
PT 14.5 Sec (11.4-14.6) 04/25/24 12:56
INR 1.15 04/25/24 12:56
APTT 28.2 Sec (23.4-35.0) 04/25/24 12:56
Estimated Creat Clear 110 ml/min 04/26/24 05:12
Lactic Acid 1.5 mmol/L (0.7-2.0) 04/25/24 04:12
Total Bilirubin 0.8 mg/dl (0.2-1.3) 04/26/24 05:12
AST 27 U/L (17-59) 04/26/24 05:12
ALT 29 U/L (0-50) 04/26/24 05:12
Alkaline Phosphatase 76 U/L (38-126) 04/26/24 05:12
Most recent labs reviewed.
Micro Results:
04/25/24 06:41 Blood Culture - Preliminary
Blood/Venous No Growth in 24 hours- Final report to follow
04/25/24 15:36 Blood Culture - Pending
Blood/Venous
04/24/2024: CT a/p: Findings suggesting cecal volvulus in the right upper quadrant with moderate colonic distention and fecal material. Mild free fluid in the abdomen and pelvis likely reactive. Findings suggesting a Meckel's diverticulum. No evidence
of inflammation.
Care Review
Plan reviewed with: Physician
--- NOTE | 2024-04-26 09:44 | W.PN.HOSP.TC ---
Today's Communication/Plan
-
NGT in
Await return of bowel function
Watch on tele
restart AC when OK with Colorectal
IV BB
OOB to chair
Encourage IS
Assessment / Plan
Assessment / Plan
79-year-old with acute right-sided abdominal pain
CT abdomen and pelvis. Cecal volvulus in the right upper quadrant with moderate colonic distention and fecal material. Free fluid in the abdomen and pelvis likely reactive. Nonvisualization of the appendix. Findings suggestive of Meckel's
diverticulum with noncompaction. Nonobstructive bilateral renal stones. Bilateral simple renal cyst. Mild proximal hypertrophic. Mild diffuse bladder wall thickening suggesting cystitis. Moderate hiatal hernia. Bilateral lower lobe and
lingular atelectasis
Seen in PACU. Denies chest pain or shortness of breath
CVS: S1-S2 normal
Chest: CTA B/L
Abdomen: Midline laparotomy wound with Aquacel
Extremities: No edema
SITE FOREMAN: Non focal exam
# Fever-NOS
Possible from Ischemic bowel
No lactic acidosis
AB stopped by ID and watching now.
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
Emergency surgery 04/25/24
Open right colectomy- for Cecal Volvulus ,distended ischemic cecum without evidence for perforation
N.p.o. with IV fluids
NGT in
Patient given Kcentra 04/25/24
Holding Eliquis and Plavix
High risk for bleeding given above
# History of autoimmune hepatitis
Followed at [facility]
Last dose of Imuran was in 2018
AST elevation noted
# Coronary artery disease with history of CABG and cardiac stents
Follows with production machine computer operator at [facility]
On Plavix-hold
On Imdur 60 mg daily, losartan 50 mg daily, metoprolol 50 mg daily, rosuvastatin 20 mg daily as outpatient
Hold as NPO
EKG sinus rhythm with nonspecific ST-T changes
Repeat EKG postop
# Diabetes-hold Januvia as n.p.o.
Sliding scale coverage with Accu-Cheks
#Paroxysmal Afib- went intu Afib/Flutter post op
Now in SR
Pt denies symptoms
rate controlled
Hold Eliquis . On IV BB
Risks of Stroke discussed with pt and family
#Prolonged QTC- Check Mag
# Hypertension-on losartan 50 mg daily and metoprolol 50 mg daily as outpatient
Hold as NPO
IV BB
# Prostate disease-on finasteride and tamsulosin as outpatient
Hold while NPO
# Hyperlipidemia-on rosuvastatin as outpatient
Hold while NPO
# DVT prophylaxis-SCDs
# Full code
D/W RN
D/W son at bed side
Anticipated Discharge: > 48 hours
Subjective/Interval History
-
Date of Service: April 26, 2024
Objective Data
-
Labs:
Laboratory Results
04/26/24 04/26/24
05:12 13:00
WBC 11.5 H Pending
Hgb 11.2 L D Pending
Hct 32.2 L Pending
Plt Count 176 Pending
Sodium 136
Potassium 4.1
Chloride 107
Carbon Dioxide 25
BUN 16
Creatinine 0.6 L
Glucose 142 H
Calcium 8.3 L
Total Bilirubin 0.8
AST 27
ALT 29
Alkaline Phosphatase 76
Vital Signs:
Vital Signs
Temp Pulse Resp BP Pulse Ox
98.2 F 71 16 108/47 92
04/26/24 07:20 04/26/24 07:20 04/26/24 07:20 04/26/24 07:20 04/26/24 07:20
I&O
04/25/24 04/26/2404/27/24
06:59 06:59 06:59
Intake Total 2470 / 2470
Output Total 1543 / 1543
Balance 927 / 927
--- NOTE | 2024-04-26 09:47 | W.PN.CRS1 ---
Today's Communication / Plan
-
d/c horn
ngt clamping trial
repeat cbc at 1pm
cont abx per ID
Assessment/Plan
-
POD#1 open right colectomy
1. Hgb drop 11.2 from 14.4. Likely dilutional anemia mixed with blood loss anemia. Will recheck CBC at 1pm.
2. D/C horn.
3. OOB as tolerated.
4. NGT clamping trial. If discontinued, remain NPO.
5. DVT prophylaxis: TEDS/SCDS. Will hold on starting Lovenox for now until CBC is repeated.
6. Hold Plavix and Eliquis today.
7. Blood cultures pending.
8. ID following. On metronidazole/cefepime.
9. Pain control: Tylenol standing and Dilaudid PRN.
10. OR pathology pending.
Subjective Data
Procedure
04/25/2024- open right colectomy
Subjective Data
Date of Service: April 26, 2024
Patient states he feels well. He still has abdominal tenderness but not like before surgery. He denies nausea or vomiting. He has flatus but no bowel movements yet.
Objective Data
-
Vital Signs
Temp Pulse Resp BP Pulse Ox
98.2 F 71 16 108/47 92
04/26/24 07:20 04/26/24 07:20 04/26/24 07:20 04/26/24 07:20 04/26/24 07:20
Intake & Output
04/25/24 04/26/24 04/27/24
06:59 06:59 06:59
Intake Total 2470 / 2470
Output Total 1543 / 1543
Balance 927 / 927
Intake:
IV fluids (Total) 1700 / 1700
Nomosal 300 / 300
IV piggybacks 620 / 620
Amount instilled into GI Tube ( 150 / 150
Total)
Forest Sump 150 / 150
Output:
Gastrointestinal tube output (
Total)
Forest Sump
Urine, Horn 1225 / 1225
Urine, Voided 300 / 300
Lab Results
04/26/24 05:12
Physical Exam
-
General: No Acute Distress and AOx3
Abdomen: Soft, Non Distended and Tender (mild around incision)
Skin: Warm and Dry
Wound: Dressing in Place
[2024-04-26] MEDS: NSS (PRESERVATIVE FREE) 10 ML IV (10:03)
[2024-04-26] MEDS: PROTONIX IV 40 MG IV (10:03)
[2024-04-26] MEDS: STERILE WATER FOR INJECTION IV (10:37)
[2024-04-26] MEDS: MAXIPIME IV (10:37)
[2024-04-26] MEDS: FLOMAX 0.400000000000000022 MG PO ×2 (11:05→20:07)
--- NOTE | 2024-04-26 11:16 | CM ---
Met with patient at the bedside; OOB in chair
NGT clamp trial; Gustafson intact
Plan: discharge to son's home when medically stable; CM will monitor for DC needs
[2024-04-26 11:25] LABS: Magnesium 2.2 mg/dl (1.6-2.3)
--- NOTE | 2024-04-26 12:02 | PN.CDI ---
Addendum entered and electronically signed by Aryan Arriaza MD 04/26/24 14:58:
Documentation is complete at this time.
Original Note:
CDI
- -
CDI:
Physician Documentation Request
Admit Date: 04/25/24 04:41
Dear Doctor Arsalan,
Please review the following and provide your response in the progress notes.
Clinical Indicators:
- On admission: WBC 13.8, TMax 101.4
- 04/26 'Fever-NOS...Possible from Ischemic bowel...AB stopped by ID and watching now'
- 04/26 ID 'Fever, leukocytosis: resolving...Reactive due to ischemic bowel'
Please clarify which most accurately describes the patient:
Sepsis
Systemic manifestations of infection, with 2 or more SIRS criteria which include:
Fever > 100.4 degrees F or hypothermia < 96.8 degrees F
Leukocytosis - WBC > 12,000 or leukopenia, WBC < 4,000 or > 10% bands
Tachycardia - > 90 beats per minute
Tachypnea - RR > 20 breaths per minute or PaCO2 < 32 mmHg
Source: Merck Manual 2013
Indicate the known or suspected organism
Indicate the known or suspected underlying infection, such as UTI, pneumonia or cellulitis
Indicate if a suspected bacterial infection of unknown source
Indicate if associated with an implanted device such as a F/C, PICC line, orthopedic hardware etc.
Indicate if there is associated organ dysfunction, such as renal or respiratory failure
SIRS due to a non-infectious source - ischemic bowel
Other
Use of terms such as suspected, likely, concern for, or probable (associated with a specific diagnosis that is being evaluated, monitored, or treated as if it exists) are acceptable and can be coded in the inpatient setting, when documented at the
time of discharge.
Thank you,
Parker Zee RN
CDI Specialist
Please use your independent medical judgment in providing your response.
[2024-04-26] MEDS: LOPRESSOR IV (12:15)
[2024-04-26 13:10] LABS: Hematocrit 38.3 % (39.0-52.0); Hemoglobin 12.6 g/dL (13.0-18.0); Mean Corp Hgb Conc. 32.9 g/dL (33.0-37.0); Mean Corpuscular Hgb 31.3 pg (27.0-31.0); Mean Corpuscular Volume 95.3 fL (80.0-94.0); Mean Platelet Volume 9.3 fL (7.4-10.4); Platelet Count 192 10^3/uL (130-400); Red Blood Cell Count 4.02 10^6/uL (4.70-6.10); Red Cell Dist. Width 14.2 % (11.5-14.5); White Blood Cell Count 12.8 10^3/uL (4.8-10.8)
--- NOTE | 2024-04-26 13:29 | W.PN.CARDCBS ---
Today's Communication / Plan
-
Given cardiac stent placed earlier this year, would ideally start antiplatelet as soon as safe from surgery standpoint
Eventual resumption of Eliquis when able
Impression / Plan
-
Primary care physician: Bora Garcia
Outpatient chlorine operator: Dr. Gael Mason at [facility] [phone]
Impression:
Presents 04/25/2024 with acute abdominal pain x 1 day
Acute cecal volvulus
s/p emergent right hemicolectomy 04/25/2024
Fever
Leukocytosis
Paroxysmal atrial fibrillation
Chronic anticoagulation on Eliquis
DM
CAD
s/p CABG at [place] 2015
s/p PCI at [facility] 12/2023
Autoimmune hepatitis off Imuran since 2018
HTN
BPH
HLD
Chronic low back pain
nephrolithiasis hx lithotripsy
Right RTC repair
left shoulder reverse total arthroplasty
Patient came to [facility] with abdominal pain and was admitted with acute cecal volvulus and cardiology has been consulted for possible post-op atrial fibrillation. Patient has a past medical history significant for coronary artery disease status post
CABG and stents, hypertension, hyperlipidemia, paroxysmal atrial fibrillation on chronic anticoagulation with Eliquis. Patient was found to have acute cecal volvulus on imaging. He was also noted to have fever, Tmax 101.4. Patient was taken
emergently to the OR and underwent open right colectomy on 04/25/2024. Patient says Afib was diagnosed after he wore a week long heart monitor following PCI in 12/2023. He was noted to have Afib and was started on Eliquis at that time. He was
continued on Plavix as well, but aspirin was stopped when Eliquis was added. Last dose of Eliquis was 04/24/24 AM. Given he was on anticoagulation he was given Kcentra. Patient denies palpitations post-op. Tele reviewed and it appears to be baseline
artifact on ECG.
Plan:
-Presents 04/25/2024 with acute abdominal pain x 1 day with fevers, leukocytosis and found to have acute cecal volvulus.
-Status post emergent right hemicolectomy 04/25/2024, patient given Kcentra prior to emergent right hemicolectomy
-Known history of paroxysmal atrial fibrillation as outpatient maintained on anticoagulation with Eliquis and Toprol. Follow on tele.
-Resume Eliquis when safe from surgical perspective
-CAD s/p CABG and PCI
-Would like to resume Plavix as soon as possible given PCI 12/2023
Progress Note - Tax Consultant
Subjective
Date of Service: April 26, 2024
No acute overnight events. Resting comfortably out of bed to chair. No chest pain or shortness of breath. No palpitations.
Objective
Labs:
04/26/24 12:57
04/26/24 05:12
Labs
Hgb 12.6 g/dL (13.0-18.0) L 04/26/24 12:57
Hct 38.3 % (39.0-52.0) L 04/26/24 12:57
Plt Count 192 10^3/uL (130-400) 04/26/24 12:57
PT 14.5 Sec (11.4-14.6) 04/25/24 12:56
INR 1.15 04/25/24 12:56
APTT 28.2 Sec (23.4-35.0) 04/25/24 12:56
Sodium 136 mmol/L (135-145) 04/26/24 05:12
Potassium 4.1 mmol/L (3.5-5.1) 04/26/24 05:12
BUN 16 mg/dl (9-20) 04/26/24 05:12
Creatinine 0.6 mg/dL (0.7-1.3) L 04/26/24 05:12
Glucose 142 mg/dl (70-99) H 04/26/24 05:12
Troponins
04/25/24 04/25/24
17:14 23:14
Troponin I 0.020 0.015
Vital Signs and I&O:
Vital Signs
Temp Pulse Resp BP Pulse Ox
99.3 F 85 20 117/66 92
04/26/24 11:15 04/26/24 11:15 04/26/24 11:15 04/26/24 11:15 04/26/24 11:15
Vital Signs
Temp Pulse Resp BP Pulse Ox
99.3 F 85 20 117/66 92
04/26/24 11:15 04/26/24 11:15 04/26/24 11:15 04/26/24 11:15 04/26/24 11:15
Intake & Output
04/24/24 04/25/24 04/26/24 04/27/24
06:59 06:59 06:59 06:59
Intake Total 2470 / 2470
Output Total 1543 / 1543
Balance 927 / 927
Physical Exam
Physical Exam
Gen: NAD, AAOx3
HEENT: NC/AT, sclera anicteric
Neck: No JVD
CV: RRR, NL s1/s2
Lungs: CTAB
Abd: S/ND
Ext: No LE edema
Skin: Warm, dry
Neuro: Non-focal
--- NOTE | 2024-04-26 16:32 | PTCARENOTE ---
NG tube clamped at 1000 as ordered. pt denied nausea. no vomiting or abdominal discomfort. residual check after 6 hrs at 1615 was <50 ml.
Left nare NG tube removed without difficulty. pt instructed on need to remain NPO. will observe.
[2024-04-26] MEDS: ASPIR LOW (ENTERIC COATED) 81 MG PO (16:54)
[2024-04-26] MEDS: DILAUDID 0.5 MG IV ×2 (17:37→21:42)
[2024-04-27] MEDS: MAALOX 30 ML PO (01:28)
[2024-04-27 02:45] VITALS: BP 134/65
[2024-04-27] MEDS: LOPRESSOR 2.5 MG IV ×2 (02:56→06:25)
[2024-04-27] MEDS: DILAUDID 0.5 MG IV ×5 (03:14→22:08)
--- NOTE | 2024-04-27 03:16 | W.PN.UPDATE ---
Update Note
Progress Note Update
Patient`s hr between 140s-170s, bp 134/65, T 98.2, denied chest pain or SOB. EKG/ a-fib with RVR. Stat lab of cbc, bmp and mag ordered. One time order of Lopressor 2.5mg was given.
[2024-04-27 03:33] LABS: % Basophils 0.3 % (0-2); % Eosinophils 0.4 % (0-6); % Immature Granulocytes 0.5 % (0-0.5); % Lymphocytes 15.7 % (20.5-51.1); % Monocytes 7.8 % (1.7-9.3); % Neutrophils 75.3 % (42.2-75.2); Absolute Eosinophils 0.1 10^3/uL (0-0.7); Absolute Immature Granulocytes 0.1 10^3/uL (0-0.05); Absolute Neutrophils 9.4 10^3/uL (1.4-6.5); Hematocrit 41.9 % (39.0-52.0); Hemoglobin 14.9 g/dL (13.0-18.0); Mean Corp Hgb Conc. 35.6 g/dL (33.0-37.0); Mean Corpuscular Volume 90.1 fL (80.0-94.0); Mean Platelet Volume 9.2 fL (7.4-10.4); Nucleated Red Blood Cells % 0 % (-); Platelet Count 249 10^3/uL (130-400); Red Blood Cell Count 4.65 10^6/uL (4.70-6.10); Red Cell Dist. Width 14.4 % (11.5-14.5); White Blood Cell Count 12.5 10^3/uL (4.8-10.8)
[2024-04-27 03:55] LABS: Blood Urea Nitrogen 16 mg/dl (9-20); Calcium 8.7 mg/dl (8.4-10.2); Carbon Dioxide 21 mmol/L (22-30); Chloride 106 mmol/L (98-107); Estimated Creatinine Clearance 110 ml/min; Glucose 177 mg/dl (70-99); Magnesium 2.2 mg/dl (1.6-2.3); Potassium 4.4 mmol/L (3.5-5.1); Sodium 136 mmol/L (135-145); eGFR > 60.00
--- NOTE | 2024-04-27 04:06 | PTCARENOTE ---
0245 TT OFFSET PLATEMAKER - pt HR 135-170, pt asymptomatic, VS as documented. OFFSET PLATEMAKER ordered STAT dose IV lopressor, STAT labs and an EKG. Pt's HR now 80's to 110's after IV lopressor administration. Assessment ongoing.
[2024-04-27] MEDS: NORMOSOL-R 1000 IV (04:36)
[2024-04-27 06:00] VITALS: BMI 28.9
[2024-04-27 07:30] VITALS: BP 119/69
[2024-04-27 08:03] LABS: Hemoglobin 14.9 g/dL (13.0-18.0); Mean Corp Hgb Conc. 33.9 g/dL (33.0-37.0); Mean Corpuscular Hgb 31.8 pg (27.0-31.0); Mean Platelet Volume 9.1 fL (7.4-10.4); Platelet Count 239 10^3/uL (130-400); Red Blood Cell Count 4.68 10^6/uL (4.70-6.10); Red Cell Dist. Width 14.2 % (11.5-14.5); White Blood Cell Count 12.3 10^3/uL (4.8-10.8)
[2024-04-27] MEDS: NSS (PRESERVATIVE FREE) 10 ML IV (08:15)
[2024-04-27] MEDS: ASPIR LOW (ENTERIC COATED) 81 MG PO (08:15)
[2024-04-27] MEDS: FLOMAX 0.400000000000000022 MG PO ×2 (08:15→19:45)
[2024-04-27] MEDS: PROTONIX IV 40 MG IV (08:16)
--- NOTE | 2024-04-27 08:44 | W.PN.CRS1 ---
Today's Communication / Plan
-
keep NPO
lovenox
okay to start heparin gtt from our perspective (no plavix/xarelto yet)
Assessment/Plan
-
POD#2 open right colectomy
1. Hgb 14.9, stable.
2. Urinating post horn removal.
3. OOB as tolerated.
4. Remain NPO today given bloating.
5. DVT prophylaxis: TEDS/SCDS, start Lovenox.
6. ASA 81mg started yesterday per cardiology. Okay to start heparin gtt today. Hold on Plavix/Xarelto for now.
7. Blood cultures pending.
8. ID following. Observe off antibiotics.
9. Pain control: Tylenol standing and Dilaudid PRN.
10. OR pathology pending.
Subjective Data
Procedure
04/25/2024- open right colectomy
Subjective Data
Date of Service: April 27, 2024
Patient states he still has some abdominal pain. He is urinating without difficulty. He has no nausea or vomiting. He has RUQ and L sided cramps which come and go. He has no blood in his stool. He has bowel movements.
Objective Data
-
Vital Signs
Temp Pulse Resp BP Pulse Ox
98.8 F 111 18 119/69 93
04/27/24 07:30 04/27/24 07:30 04/27/24 07:30 04/27/24 07:30 04/27/24 07:30
Intake & Output
04/26/24 04/27/24 04/28/24
06:59 06:59 06:59
Intake Total 2470 / 2470 1920 / 1920
Output Total 1543 / 1543 1175 / 1175
Balance 927 / 927 745 / 745
Intake:
Oral fluids 120 / 120
IV fluids (Total) 1700 / 1700 1800 / 1800
Nomosal 300 / 300
IV piggybacks 620 / 620
Amount instilled into GI Tube ( 150 / 150
Total)
[place] Sump 150 / 150
Output:
Gastrointestinal tube output (
Total)
[place] Sump
Urine, [place] 1225 / 1225 800 / 800
Urine, Voided 300 / 300 375 / 375
Lab Results
04/27/24 07:54
Physical Exam
-
General: No Acute Distress and AOx3
Abdomen: Soft, Distended (mild) and Tender (mild throughout )
Skin: Warm and Dry
Incision: Clear, Dry, Intact
--- NOTE | 2024-04-27 09:41 | W.PN.CARDCBS ---
Today's Communication / Plan
-
Increase IV Lopressor to 5 mg IV every 6. Add back Toprol 50 mg daily.
Continue aspirin. Will start IV heparin with no bolus.
Impression / Plan
-
Primary care physician: Bora Garcia
Outpatient irrigation system installer: Dr. Gael Mason at [facility] [phone]
Impression:
Presents 04/25/2024 with acute abdominal pain x 1 day
Acute cecal volvulus
s/p emergent right hemicolectomy 04/25/2024
Fever
Leukocytosis
Paroxysmal atrial fibrillation
Chronic anticoagulation on Eliquis
DM
CAD
s/p CABG at [place] 2015
s/p PCI at [facility] 12/2023
Autoimmune hepatitis off Imuran since 2017
HTN
BPH
HLD
Chronic low back pain
nephrolithiasis hx lithotripsy
Right RTC repair
left shoulder reverse total arthroplasty
Patient came to [facility] with abdominal pain and was admitted with acute cecal volvulus and cardiology has been consulted for possible post-op atrial fibrillation. Patient has a past medical history significant for coronary artery disease status post
CABG and stents, hypertension, hyperlipidemia, paroxysmal atrial fibrillation on chronic anticoagulation with Eliquis. Patient was found to have acute cecal volvulus on imaging. He was also noted to have fever, Tmax 101.4. Patient was taken
emergently to the OR and underwent open right colectomy on 04/25/2024. Patient says Afib was diagnosed after he wore a week long heart monitor following PCI in 12/2023. He was noted to have Afib and was started on Eliquis at that time. He was
continued on Plavix as well, but aspirin was stopped when Eliquis was added. Last dose of Eliquis was 04/24/24 AM. Given he was on anticoagulation he was given Kcentra. Patient denies palpitations post-op. Tele reviewed and it appears to be baseline
artifact on ECG.
Plan:
-Presents 04/25/2024 with acute abdominal pain x 1 day with fevers, leukocytosis and found to have acute cecal volvulus.
-Status post emergent right hemicolectomy 04/25/2024, patient given Kcentra prior to emergent right hemicolectomy
-Currently in rapid A-fib. Will increase IV Lopressor to 5 mg IV every 6 and restart Toprol 50 mg p.o. daily. If ventricular rates are not improved we will need to start Cardizem drip.
-Still no Plavix and Eliquis. Hemoglobin stable.
-Continue aspirin. Will start IV heparin today with no bolus as well
-CAD s/p CABG and PCI
-Would like to resume Plavix as soon as possible given PCI 12/2023
Progress Note - Epic Willow Specialist
Subjective
Date of Service: April 27, 2024
Went to rapid atrial fibrillation this morning. He is feeling some palpitations.
Objective
Labs:
04/27/24 07:54
Labs
Hgb 14.9 g/dL (13.0-18.0) 04/27/24 07:54
Hct 44.0 % (39.0-52.0) 04/27/24 07:54
Plt Count 239 10^3/uL (130-400) 04/27/24 07:54
PT 14.5 Sec (11.4-14.6) 04/25/24 12:56
INR 1.15 04/25/24 12:56
APTT 28.2 Sec (23.4-35.0) 04/25/24 12:56
Sodium Cancelled 04/27/24 07:54
Potassium Cancelled 04/27/24 07:54
BUN Cancelled 04/27/24 07:54
Creatinine Cancelled 04/27/24 07:54
Glucose Cancelled 04/27/24 07:54
Troponins
04/25/24 04/25/24
17:14 23:14
Troponin I 0.020 0.015
Vital Signs and I&O:
Vital Signs
Temp Pulse Resp BP Pulse Ox
98.8 F 111 18 119/69 93
04/27/24 07:30 04/27/24 07:30 04/27/24 07:30 04/27/24 07:30 04/27/24 08:00
Vital Signs
Temp Pulse Resp BP Pulse Ox
98.8 F 111 18 119/69 93
04/27/24 07:30 04/27/24 07:30 04/27/24 07:30 04/27/24 07:30 04/27/24 08:00
Intake & Output
04/25/24 04/26/24 04/27/24 04/28/24
06:59 06:59 06:59 06:59
Intake Total 2470 / 2470 1920 / 1920
Output Total 1543 / 1543 1175 / 1175
Balance 927 / 927 745 / 745
Physical Exam
Physical Exam
GEN: No distress, awake, Ox3
HEENT: supple, anicteric, mmm
LUNGS: scatt rhonchi
CV: Irreg, S1/S2, 1/6 syst LSB, no gallop
ABD: soft, BS+, NT/ND
EXT: No edema
NEURO: Gross non-focal
SKIN: No rash
[2024-04-27 10:09] LABS: ALT (SGPT) 25 U/L (0-50); AST (SGOT) 28 U/L (17-59); Albumin 3.1 g/dl (3.5-5.0); Alkaline Phosphatase 87 U/L (38-126); Blood Urea Nitrogen 17 mg/dl (9-20); Calcium 8.5 mg/dl (8.4-10.2); Carbon Dioxide 21 mmol/L (22-30); Chloride 105 mmol/L (98-107); Estimated Creatinine Clearance 110 ml/min; Glucose 176 mg/dl (70-99); Magnesium 2.2 mg/dl (1.6-2.3); Potassium 4.4 mmol/L (3.5-5.1); Sodium 136 mmol/L (135-145); Total Bilirubin 1.1 mg/dl (0.2-1.3); Total Protein 5.9 g/dl (6.3-8.2); eGFR > 60.00
[2024-04-27] MEDS: TOPROL XL 50 MG PO (10:42)
[2024-04-27] MEDS: LOPRESSOR 5 MG IV ×3 (11:02→23:51)
[2024-04-27 11:15] VITALS: BP 121/69
--- NOTE | 2024-04-27 12:51 | W.PN.HOSP.TC ---
Today's Communication/Plan
-
Resume home meds
IV heparin
Hemoglobin A1c
Low resistance NovoLog scale
Assessment / Plan
Assessment / Plan
Gen-AAOx3, NAD
HEENT-NC, AT, anicteric, clear oral mm
Neck-supple
CV-reg, no M, +S1/S2
Lungs-clear B/L
Abd-soft, NT, ND
Ext-no edema
Musculoskeletal-no cyanosis, clubbing
Skin-warm and dry
Neuro-grossly non-focal
Psych-calm, cooperative
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 Underwent right colectomy April 25. Relatively stable postop. Currently NPO.
Transient fever -on April 25. Has been afebrile since. No obvious infection. Blood cultures negative. Off antibiotics. Appreciate ID input.
History of autoimmune hepatitis
Followed at [facility]
Last dose of Imuran was in 2017
AST elevation noted
CAD/CABG - last stented in December.
Follows with facing baster at [facility]
On Plavix - resume when okay with surgical service.
On Imdur 60 mg daily, losartan 50 mg daily, metoprolol 50 mg daily, rosuvastatin 20 mg daily as outpatient
EKG sinus rhythm with nonspecific ST-T changes
DM2 without hyperglycemia -on Januvia as outpatient. Check hemoglobin A1c. Add low resistance insulin scale. Long discussion with patient about diabetes management. Recommend speaking with primary care doctor about getting continuous glucose
monitor.
Paroxysmal Afib - went into Afib/Flutter post op, back to sinus rhythm. Cardiology recommends IV heparin drip while off Eliquis, no bolus. I spoke with surgical service and they are okay with IV heparin.
Prolonged QTC -magnesium and potassium normal.
Essential Hypertension -on losartan 50 mg daily and metoprolol 50 mg daily as outpatient
Prostate disease -resume finasteride and tamsulosin.
Hyperlipidemia -resume rosuvastatin.
Obesity due to excess calories
Full code
Updated patient's son at the bedside.
Anticipated Discharge: > 48 hours
Subjective/Interval History
-
Date of Service: April 27, 2024
Patient seen and examined. Complaining of abdominal pain. Moving bowels.
Objective Data
-
Labs:
Laboratory Results
04/27/24 04/27/24 04/27/24
03:05 07:54 09:02
WBC 12.5 H 12.3 H
Hgb 14.9 14.9
Hct 41.9 44.0
Plt Count 249 D 239
Sodium 136 Cancelled 136
Potassium 4.4 Cancelled 4.4
Chloride 106 Cancelled 105
Carbon Dioxide 21 L Cancelled 21 L
BUN 16 Cancelled 17
Creatinine 0.5 L Cancelled 0.5 L
Glucose 177 H Cancelled 176 H
Calcium 8.7 Cancelled 8.5
Total Bilirubin Cancelled 1.1
AST Cancelled 28
ALT Cancelled 25
Alkaline Phosphatase Cancelled 87
Vital Signs:
Vital Signs
Temp Pulse Resp BP Pulse Ox
98.9 F 90 17 121/69 96
04/27/24 11:15 04/27/24 11:15 04/27/24 11:15 04/27/24 11:15 04/27/24 11:15
I&O
04/26/24 04/27/24 04/28/24
06:59 06:59 06:59
Intake Total 2470 / 2470 1920 / 1920
Output Total 1543 / 1543 1175 / 1175
Balance 927 / 927 745 / 745
Review of Systems
-
History Source: Patient
All other systems: Reviewed and negative
--- NOTE | 2024-04-27 13:33 | W.PN.ID1 ---
Date of Service
Date of Service: April 27, 2024
Today's Communication
Observe off abx.
ID will sign off.
Assessment / Plan
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
-OR finding ischemic bowel without perforation.
# Reactive fever resolved
# Reactive leukocytosis - stable
- Bcx's neg.
- Observe off abx.
ID will sign off.
#Additional Past Medical History:
DM
CAD s/p CABG/stents
Autoimmune hepatitis off Imuran since 2017
paroxysmal Afib
HTN
BPH
HLD
nephrolithiasis hx lithotripsy
Right RTC repair
left shoulder reverse total arthroplasty
Chief Complaint
-: Fever and Leukocytosis
Subjective / Review of Systems
Feels well.
Vital Signs / Physical Exam
Vital Signs
Vital Signs
Temp Pulse Resp BP Pulse Ox
98.9 F 90 17 121/69 96
04/27/24 11:15 04/27/24 11:15 04/27/24 11:15 04/27/24 11:15 04/27/24 11:15
Physical Exam
Constitutional: No Acute Distress and Comfortable
Cardiovascular: Irregular Rate and S1/S2
Pulmonary: Clear
Gastrointestinal: Soft and Non Tender
Objective Data
Lab Data
Lab Results
04/27/24 09:02
PT 14.5 Sec (11.4-14.6) 04/25/24 12:56
INR 1.15 04/25/24 12:56
APTT 28.2 Sec (23.4-35.0) 04/25/24 12:56
Estimated Creat Clear 110 ml/min 04/27/24 09:02
Lactic Acid 1.5 mmol/L (0.7-2.0) 04/25/24 04:12
Total Bilirubin 1.1 mg/dl (0.2-1.3) 04/27/24 09:02
AST 28 U/L (17-59) 04/27/24 09:02
ALT 25 U/L (0-50) 04/27/24 09:02
Alkaline Phosphatase 87 U/L (38-126) 04/27/24 09:02
Most recent labs reviewed.
Micro Results:
04/25/24 06:41 Blood Culture - Preliminary
Blood/Venous No Growth in 48 hours- Final report to follow
04/25/24 15:36 Blood Culture - Preliminary
Blood/Venous No Growth in 24 hours- Final report to follow
04/24/2024: CT a/p: Findings suggesting cecal volvulus in the right upper quadrant with moderate colonic distention and fecal material. Mild free fluid in the abdomen and pelvis likely reactive. Findings suggesting a Meckel's diverticulum. No evidence
of inflammation.
Care Review
Plan reviewed with: Physician (Dr. Yao)
[2024-04-27 13:34] LABS: Hematocrit 41.9 % (39.0-52.0); Hemoglobin 14.6 g/dL (13.0-18.0); Mean Corp Hgb Conc. 34.8 g/dL (33.0-37.0); Mean Corpuscular Hgb 31.9 pg (27.0-31.0); Mean Corpuscular Volume 91.7 fL (80.0-94.0); Mean Platelet Volume 9.3 fL (7.4-10.4); Platelet Count 233 10^3/uL (130-400); Red Blood Cell Count 4.57 10^6/uL (4.70-6.10); Red Cell Dist. Width 14.3 % (11.5-14.5); White Blood Cell Count 12.2 10^3/uL (4.8-10.8)
[2024-04-27 13:46] LABS: APTT 29.2 Sec (23.4-35.0)
[2024-04-27] MEDS: HEPARIN 25000 UNITS/250 ML IV (14:10)
[2024-04-27 15:25] VITALS: BP 143/77
[2024-04-27 16:23] LABS: Glucose - Point of Care 166 mg/dl (70-99)
[2024-04-27] MEDS: NOVOLOG FLEXPEN-LOW RESISTANCE 1 UNITS SC ×2 (17:41→23:53)
[2024-04-27 20:24] LABS: APTT 44.7 Sec (23.4-35.0)
[2024-04-27 20:31] VITALS: BP 122/93
[2024-04-27] MEDS: PAXIL 20 MG PO (22:08)
[2024-04-27] MEDS: MELATONIN 5 MG PO (22:08)
[2024-04-27 23:28] VITALS: BP 125/71
[2024-04-27 23:52] LABS: Glucose - Point of Care 177 mg/dl (70-99)
[2024-04-28] VITALS (8 sets, daily range): BP systolic 119–151; BP diastolic 69–83; PULSE 93; O2SAT 97; BMI 29.6
[2024-04-28 03:34] LABS: APTT 61.3 Sec (23.4-35.0)
[2024-04-28 05:23] LABS: Glucose - Point of Care 170 mg/dl (70-99)
[2024-04-28] MEDS: LOPRESSOR 5 MG IV ×4 (05:26→23:49)
[2024-04-28] MEDS: NOVOLOG FLEXPEN-LOW RESISTANCE 1 UNITS SC (05:26)
--- NOTE | 2024-04-28 06:47 | W.PN.UPDATE ---
Update Note
Progress Note Update
Patient complained of chest pain, described as generalized chest tightness. Non radiating. increased with inspiration and using incentive spirometer. He also complained of productive cough. Diminished lung sound on lung exam. Denied SOB. Patient is
afebrile. Patient currently on heparin drip.
Stat Chest x-ray, CBC, BMP, mag, Troponin, Pro BNP, Covid test and EKG.
[2024-04-28] MEDS: HEPARIN 25000 UNITS/250 ML IV ×2 (07:02→22:29)
--- NOTE | 2024-04-28 07:08 | PTCARENOTE ---
TT BROOMCORN THRESHER @0621 that pt c/o of some chest pressure, VS as documented. pt denied chest pain. BROOMCORN THRESHER ordered STAT EKG, labs, and CXR. Assessment ongoing.
--- NOTE | 2024-04-28 07:23 | CM ---
met with patient and son at bedside.cont heparin gtt,npo,observe off abx,wbc stable,bc negative.had cp.ekg and cxr ordered.will disuss home care with patient.physical therapy will eval patient again today.plan home with hc vs home with no needs.
[2024-04-28 07:46] LABS: % Basophils 0.3 % (0-2); % Eosinophils 1.6 % (0-6); % Immature Granulocytes 0.5 % (0-0.5); % Lymphocytes 16.8 % (20.5-51.1); % Monocytes 7.7 % (1.7-9.3); % Neutrophils 73.1 % (42.2-75.2); Absolute Eosinophils 0.2 10^3/uL (0-0.7); Absolute Immature Granulocytes 0.1 10^3/uL (0-0.05); Absolute Monocytes 0.9 10^3/uL (0.1-0.6); Absolute Neutrophils 8.8 10^3/uL (1.4-6.5); Hematocrit 41.8 % (39.0-52.0); Hemoglobin 14.3 g/dL (13.0-18.0); Mean Corp Hgb Conc. 34.2 g/dL (33.0-37.0); Mean Corpuscular Hgb 31.5 pg (27.0-31.0); Mean Corpuscular Volume 92.1 fL (80.0-94.0); Mean Platelet Volume 9.6 fL (7.4-10.4); Nucleated Red Blood Cells % 0 % (-); Platelet Count 269 10^3/uL (130-400); Red Blood Cell Count 4.54 10^6/uL (4.70-6.10); Red Cell Dist. Width 13.9 % (11.5-14.5)
[2024-04-28 07:51] LABS: Blood Urea Nitrogen 21 mg/dl (9-20); Calcium 8.4 mg/dl (8.4-10.2); Carbon Dioxide 23 mmol/L (22-30); Chloride 105 mmol/L (98-107); Estimated Creatinine Clearance 110 ml/min; Glucose 186 mg/dl (70-99); Magnesium 2.1 mg/dl (1.6-2.3); Potassium 4.2 mmol/L (3.5-5.1); Sodium 137 mmol/L (135-145); eGFR > 60.00
[2024-04-28 08:01] LABS: NT-proBNP 2850 pg/ml; Troponin I 0.033 ng/ml
[2024-04-28 08:09] LABS: COVID-19 Antigen Negative (Negative)
[2024-04-28] MEDS: CRESTOR 20 MG PO (08:30)
[2024-04-28] MEDS: TOPROL XL 50 MG PO (08:30)
[2024-04-28] MEDS: NSS (PRESERVATIVE FREE) 10 ML IV (08:30)
[2024-04-28] MEDS: ASPIR LOW (ENTERIC COATED) 81 MG PO (08:30)
[2024-04-28] MEDS: PROSCAR 5 MG PO (08:30)
[2024-04-28] MEDS: PROTONIX IV 40 MG IV (08:30)
[2024-04-28] MEDS: FLOMAX 0.400000000000000022 MG PO ×2 (08:30→19:37)
[2024-04-28 10:28] LABS: APTT 53.4 Sec (23.4-35.0)
[2024-04-28] MEDS: TOPROL XL 25 MG PO ×2 (11:23→15:55)
--- NOTE | 2024-04-28 11:42 | W.PN.CRS1 ---
Today's Communication / Plan
-
clear liquids
continue heparin gtt for now
Assessment/Plan
-
POD#3 open right colectomy
1. Hgb 14.3, stable.
2. Chest pain this AM, now resolved. Cardiology following.
3. OOB as tolerated.
4. Advance diet to clears given improvement in bloating and flatus present.
5. DVT prophylaxis: TEDS/SCDS, start Lovenox.
6. ASA 81mg started yesterday per cardiology. Continue heparin gtt today. Hold on Plavix/Eliquis for now.
7. Blood cultures pending.
8. ID following. Observe off antibiotics.
9. Pain control: Tylenol standing and Dilaudid PRN.
10. OR pathology pending.
Subjective Data
Procedure
04/25/2024- open right colectomy
Subjective Data
Date of Service: April 28, 2024
Patient states he is passing stools and flatus. He is less bloated. His pain is controlled. He denies nausea or vomiting.
Objective Data
-
Vital Signs
Temp Pulse Resp BP Pulse Ox
98.3 F 114 18 139/80 94
04/28/24 11:15 04/28/24 11:15 04/28/24 11:15 04/28/24 11:15 04/28/24 11:15
Intake & Output
04/27/24 04/28/24 04/29/24
06:59 06:59 06:59
Intake Total 1919 / 0 660 / 660
Output Total 1175 / 1175 325 / 325
Balance 745 / 745 335 / 335
Intake:
Oral fluids 120 / 120
IV fluids (Total) 1800 / 1800 660 / 660
Output:
Urine, [place] 800 / 800
Urine, Voided 375 / 375 325 / 325
Other:
Number of approximated MODERATE 2
amounts of urine
Lab Results
04/28/24 06:52
04/28/24 06:52
Physical Exam
-
General: No Acute Distress and AOx3
Abdomen: Soft, Distended (mild, improving) and Non Tender
Skin: Warm and Dry
Wound: Dressing in Place
[2024-04-28] MEDS: NOVOLOG FLEXPEN-LOW RESISTANCE 2 UNITS SC ×2 (12:00→17:35)
[2024-04-28 12:01] LABS: Glucose - Point of Care 209 mg/dl (70-99)
--- NOTE | 2024-04-28 12:52 | W.PN.CARDCBS ---
Today's Communication / Plan
-
Ventricular rates remain modestly elevated. Will increase Toprol to 50 mg p.o. twice daily. Continue IV Lopressor as well 5 mg IV every 6 as am not sure how much of the oral medication he is absorbing.
Continue IV heparin. Hemoglobin is stable.
Will give Lasix 20 mg IV x 1 today.
He had some atypical chest pains but EKG and troponins are stable.
Impression / Plan
-
Primary care physician: Bora Garcia
Outpatient gold tooler: Dr. Gael Mason at [facility] [phone]
Impression:
Presents 04/25/2024 with acute abdominal pain x 1 day
Acute cecal volvulus
s/p emergent right hemicolectomy 04/25/2024
Fever
Leukocytosis
Paroxysmal atrial fibrillation
Chronic anticoagulation on Eliquis
DM
CAD
s/p CABG at [place] 2016
s/p PCI at [facility] 12/2023
Autoimmune hepatitis off Imuran since 2018
HTN
BPH
HLD
Chronic low back pain
nephrolithiasis hx lithotripsy
Right RTC repair
left shoulder reverse total arthroplasty
Patient came to [facility] with abdominal pain and was admitted with acute cecal volvulus and cardiology has been consulted for possible post-op atrial fibrillation. Patient has a past medical history significant for coronary artery disease status post
CABG and stents, hypertension, hyperlipidemia, paroxysmal atrial fibrillation on chronic anticoagulation with Eliquis. Patient was found to have acute cecal volvulus on imaging. He was also noted to have fever, Tmax 101.4. Patient was taken
emergently to the OR and underwent open right colectomy on 04/25/2024. Patient says Afib was diagnosed after he wore a week long heart monitor following PCI in 12/2023. He was noted to have Afib and was started on Eliquis at that time. He was
continued on Plavix as well, but aspirin was stopped when Eliquis was added. Last dose of Eliquis was 04/24/24 AM. Given he was on anticoagulation he was given Kcentra. Patient denies palpitations post-op. Tele reviewed and it appears to be baseline
artifact on ECG.
Plan:
-Presents 04/25/2024 with acute abdominal pain x 1 day with fevers, leukocytosis and found to have acute cecal volvulus.
-Status post emergent right hemicolectomy 04/25/2024, patient given Kcentra prior to emergent right hemicolectomy
-Currently in A-fib. cont IV Lopressor to 5 mg IV every 6 and increase Toprol to 50 mg po bid If ventricular rates are not improved we will need to start Cardizem drip.
-Still no Plavix and Eliquis. Hemoglobin stable.
-Continue aspirin. Cont IV heparin today with no bolus as well
-CAD s/p CABG and PCI
-Would like to resume Plavix as soon as possible given PCI 12/2023
Progress Note - Help Desk Assistant
Subjective
Date of Service: April 28, 2024
Has some fullness in his lung area and does feel palpitations in the A-fib.
Objective
Labs:
04/28/24 06:52
04/28/24 06:52
Labs
Hgb 14.3 g/dL (13.0-18.0) 04/28/24 06:52
Hct 41.8 % (39.0-52.0) 04/28/24 06:52
Plt Count 269 10^3/uL (130-400) 04/28/24 06:52
PT 14.5 Sec (11.4-14.6) 04/25/24 12:56
INR 1.15 04/25/24 12:56
APTT 53.4 Sec (23.4-35.0) H 04/28/24 09:54
Sodium 137 mmol/L (135-145) 04/28/24 06:52
Potassium 4.2 mmol/L (3.5-5.1) 04/28/24 06:52
BUN 21 mg/dl (9-20) H 04/28/24 06:52
Creatinine 0.5 mg/dL (0.7-1.3) L 04/28/24 06:52
Glucose 186 mg/dl (70-99) H 04/28/24 06:52
Troponins
04/25/24 04/25/24 04/28/24
17:14 23:14 06:52
Troponin I 0.020 0.015 0.033
Vital Signs and I&O:
Vital Signs
Temp Pulse Resp BP Pulse Ox
98.3 F 108 18 139/80 94
04/28/24 11:15 04/28/24 11:56 04/28/24 11:15 04/28/24 11:56 04/28/24 11:15
Vital Signs
Temp Pulse Resp BP Pulse Ox
98.3 F 108 18 139/80 94
04/28/24 11:15 04/28/24 11:56 04/28/24 11:15 04/28/24 11:56 04/28/24 11:15
Intake & Output
04/26/24 04/27/24 04/28/24 04/29/24
06:59 06:59 06:59 06:59
Intake Total 2470 / 2470 1920 / 1920 660 / 660
Output Total 1543 / 1543 1175 / 1175 325 / 325
Balance 927 / 927 745 / 745 335 / 335
Physical Exam
Physical Exam
GEN: No distress, awake, Ox3
HEENT: supple, anicteric, mmm
LUNGS: scatt rhonchi
CV:Irreg, S1/S2, 1/6 syst LSB, no gallop
ABD: soft, BS+, NT/ND
EXT: No edema
NEURO: Gross non-focal
SKIN: No rash
--- NOTE | 2024-04-28 12:54 | W.PN.HOSP.TC ---
Today's Communication/Plan
-
Increase metoprolol
Continue IV heparin
Assessment / Plan
Assessment / Plan
Gen-AAOx3, NAD
HEENT-NC, AT, anicteric, clear oral mm
Neck-supple
CV-reg, no M, +S1/S2
Lungs-clear B/L
Abd-soft, NT, ND
Ext-no edema
Musculoskeletal-no cyanosis, clubbing
Skin-warm and dry
Neuro-grossly non-focal
Psych-calm, cooperative
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 Underwent right colectomy April 25. Relatively stable postop. Clear liquid diet started.
Paroxysmal atrial fibrillation -rapid ventricular response today. I suspect his symptoms of shortness of breath that started last night may be related to rapid atrial fibrillation. Chest x-ray clear lungs. Will increase metoprolol dose orally.
Continue IV heparin. Resume Eliquis when okay with surgical service.
Transient fever -on April 25. Has been afebrile since. No obvious infection. Blood cultures negative. Off antibiotics. Appreciate ID input.
History of autoimmune hepatitis
Followed at [facility]
Last dose of Imuran was in 2017
AST elevation noted
CAD/CABG - last stented in December.
Follows with grave cleaner at [facility]
On Plavix - resume when okay with surgical service.
On Imdur 60 mg daily, losartan 50 mg daily, metoprolol 50 mg daily, rosuvastatin 20 mg daily as outpatient
EKG sinus rhythm with nonspecific ST-T changes
DM2 without hyperglycemia -on Januvia as outpatient. Hemoglobin A1c 7.0%. Continue low resistance insulin scale. Recommend diet, exercise and weight loss as this may cure his diabetes. Discussed with patient.
Prolonged QTC -magnesium and potassium normal.
Essential Hypertension -on losartan 50 mg daily and metoprolol 50 mg daily as outpatient
Prostate disease -continue finasteride and tamsulosin.
Hyperlipidemia -continue rosuvastatin.
Obesity due to excess calories -weight loss encouraged.
Full code
Updated patient's son at the bedside.
Anticipated Discharge: 24 - 48 hours
Subjective/Interval History
-
Date of Service: April 28, 2024
Patient seen and examined. Still with abdominal discomfort, shortness of breath on exertion.
Objective Data
-
Labs:
Laboratory Results
04/28/24 04/28/24 04/28/24
03:16 06:52 09:54
WBC 12.0 H
Hgb 14.3
Hct 41.8
Plt Count 269
APTT 61.3 H 53.4 H
Sodium 137
Potassium 4.2
Chloride 105
Carbon Dioxide 23
BUN 21 H
Creatinine 0.5 L
Glucose 186 H
Calcium 8.4
04/28/24
16:40
WBC
Hgb
Hct
Plt Count
APTT Pending
Sodium
Potassium
Chloride
Carbon Dioxide
BUN
Creatinine
Glucose
Calcium
Vital Signs:
Vital Signs
Temp Pulse Resp BP Pulse Ox
98.3 F 108 18 139/80 94
04/28/24 11:15 04/28/24 11:56 04/28/24 11:15 04/28/24 11:56 04/28/24 11:15
I&O
04/27/24 04/28/24 04/29/24
06:59 06:59 06:59
Intake Total 1919 / 1919 660 / 660
Output Total 1175 / 1175 325 / 325
Balance 745 / 745 335 / 335
Review of Systems
-
History Source: Patient
All other systems: Reviewed and negative
[2024-04-28] MEDS: LASIX 20 MG IV (13:00)
[2024-04-28] MEDS: DILAUDID 0.25 MG IV (13:08)
[2024-04-28] MEDS: ROXICODONE 5 MG PO (15:21)
[2024-04-28 17:13] LABS: APTT 79.4 Sec (23.4-35.0)
[2024-04-28 17:23] LABS: Glucose - Point of Care 216 mg/dl (70-99)
--- NOTE | 2024-04-28 18:05 | PTCARENOTE ---
Pt with continued chest pressure. Patient states pressure has not gotten any worse and has no other symptoms. Physician notified. Will continue to monitor chest pressure. Care ongoing.
[2024-04-28 21:28] LABS: Glucose - Point of Care 216 mg/dl (70-99)
[2024-04-28] MEDS: MELATONIN 5 MG PO (22:29)
[2024-04-28] MEDS: PAXIL 20 MG PO (22:29)
[2024-04-28 23:59] LABS: APTT 53.9 Sec (23.4-35.0)
[2024-04-29 02:46] VITALS: BP 142/65
[2024-04-29 05:50] VITALS: BMI 29.5
[2024-04-29] MEDS: LOPRESSOR 5 MG IV ×3 (06:19→18:04)
--- NOTE | 2024-04-29 06:30 | PTCARENOTE ---
Notified international recruiter colorectal surgeon Dr. Agosto that pt's abdominal aquacell had copious drainage. Dressing was changed and reinforced. Dr. Agosto said he will be around to see the patient. assessment ongoing.
[2024-04-29 06:57] LABS: Hematocrit 37.2 % (39.0-52.0); Hemoglobin 13.2 g/dL (13.0-18.0); Mean Corp Hgb Conc. 35.5 g/dL (33.0-37.0); Mean Corpuscular Volume 90.1 fL (80.0-94.0); Platelet Count 270 10^3/uL (130-400); Red Blood Cell Count 4.13 10^6/uL (4.70-6.10); Red Cell Dist. Width 13.7 % (11.5-14.5); White Blood Cell Count 14.1 10^3/uL (4.8-10.8)
[2024-04-29 07:06] LABS: APTT 87.4 Sec (23.4-35.0)
[2024-04-29 07:23] VITALS: BP 125/77
[2024-04-29 08:00] LABS: Glucose - Point of Care 200 mg/dl (70-99)
[2024-04-29] MEDS: ROXICODONE 5 MG PO ×2 (08:50→21:40)
[2024-04-29] MEDS: NOVOLOG FLEXPEN-LOW RESISTANCE 2 UNITS SC (08:51)
[2024-04-29] MEDS: NSS (PRESERVATIVE FREE) 10 ML IV (08:52)
[2024-04-29] MEDS: PROTONIX IV 40 MG IV (08:52)
[2024-04-29] MEDS: CRESTOR 20 MG PO (08:54)
[2024-04-29] MEDS: ASPIR LOW (ENTERIC COATED) 81 MG PO (08:54)
[2024-04-29] MEDS: PROSCAR 5 MG PO (08:54)
[2024-04-29] MEDS: FLOMAX 0.400000000000000022 MG PO ×2 (08:54→21:18)
--- NOTE | 2024-04-29 08:54 | W.PN.CRS1 ---
Today's Communication / Plan
-
Advance to fulls
Serous drainage from midline, continue dressing changes
Rate control for A-fib
Continue hep drip, hold Xarelto and Plavix for now
Assessment/Plan
-
79-year-old male with PMH of A-fib (on Eliquis), DM, CAD (s/p CABG, stents), autoimmune hepatitis, HTN, HLD, BPH, kidney stones who presents with acute abdominal pain, CT showing cecal volvulus
POD 4 ex lap, right hemicolectomy; overnight went into A-fib with RVR
WBC 14.1 from 12.0, Hb 13.2 from 14.3
� Serous drainage from midline most likely subcutaneous seroma that opened; continue to to monitor, dressing change daily and as needed
�Advance to fulls
� Continue pain control with Tylenol, Dilaudid as needed
- S/p 3 days antibiotics, monitor off per ID
�Appreciate cardiology
-afib with RVR, cont metop
- okay for aspirin and heparin drip; continue holding Plavix and Xarelto
�OOB/IS, recommend PT
� Appreciate hospitalist
Subjective Data
Procedure
04/25/2024- open right colectomy
Subjective Data
Date of Service: April 29, 2024
Overnight, had copious amounts of serosanguineous drainage. Nurse change dressing.
Pain controlled.
Denies nausea/vomiting. Tolerating clears.
+flatus +BMs +voiding
Objective Data
-
Vital Signs
Temp Pulse Resp BP Pulse Ox
99.8 F 90 18 125/77 94
04/29/24 08:48 04/29/24 07:23 04/29/24 07:23 04/29/24 07:23 04/29/24 07:23
Intake & Output
04/28/24 04/29/24 04/30/24
06:59 06:59 06:59
Intake Total 660 / 660 480 / 480
Output Total 325 / 325 400 / 400
Balance 335 / 335 80 / 80
Intake:
Oral fluids 480 / 480
IV fluids (Total) 660 / 660
Output:
Urine, Voided 325 / 325 400 / 400
Other:
Number of approximated MODERATE 2
amounts of urine
Lab Results
04/29/24 06:45
04/28/24 06:52
Physical Exam
-
General: No Acute Distress and AOx3
HEENT: Grossly Normal
Abdomen: Soft, Non Distended, Tender (Appropriately tender near midline incision), No Guarding and No Rebound
Skin: Warm and Dry
Wound: No Signs of Infection and Dressing Changed (Had copious serous drainage upon dressing change, but ultimately stopped; unable to express anything further; no purulent drainage; no surrounding erythema)
[2024-04-29] MEDS: TOPROL XL 75 MG PO (08:55)
[2024-04-29 11:03] VITALS: BP 141/61
[2024-04-29 11:22] LABS: Glucose - Point of Care 192 mg/dl (70-99)
--- NOTE | 2024-04-29 11:27 | W.PN.HOSP.TC ---
Today's Communication/Plan
-
Monitor fever and white blood cell count
Add basal/bolus insulin
Assessment / Plan
Assessment / Plan
Gen-AAOx3, NAD
HEENT-NC, AT, anicteric, clear oral mm
Neck-supple
CV-reg, no M, +S1/S2
Lungs-clear B/L
Abd-soft, NT, ND
Ext-no edema
Musculoskeletal-no cyanosis, clubbing
Skin-warm and dry
Neuro-grossly non-focal
Psych-calm, cooperative
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 Underwent right colectomy April 25. Relatively stable postop. Clear liquid diet started.
Paroxysmal atrial fibrillation - Continue IV heparin. Resume Eliquis when okay with surgical service. Currently on Toprol-XL 75 mg daily, will increase to 50 mg twice daily for better heart rate control. Still getting IV metoprolol as needed
tachycardia.
Transient fever -on April 25, and again this morning April 29. He is 4 days out from surgery and therefore I doubt this is a benign postoperative fever. Looks nontoxic. However, rising white blood cell count concerning. Blood cultures negative.
Not on antibiotics currently. Perhaps fever is due to the seroma, now draining and being addressed by the surgical service. If white blood cell count worsens or if he remains febrile, consider CT of the abdomen pelvis. Will defer to surgical
service.
History of autoimmune hepatitis
Followed at [facility]
Last dose of Imuran was in 2018
AST elevation noted
CAD/CABG - last stented in December.
Follows with event specialist food demonstrator at [facility]
On Plavix - resume when okay with surgical service.
On Imdur 60 mg daily, losartan 50 mg daily, metoprolol 50 mg daily, rosuvastatin 20 mg daily as outpatient
EKG sinus rhythm with nonspecific ST-T changes
DM2 without hyperglycemia -on Januvia as outpatient. Hemoglobin A1c 7.0%. Recommend diet, exercise and weight loss as this may cure his diabetes. Discussed with patient.
Becoming more hyperglycemic over the past 24 hours. Will add low-dose Lantus and NovoLog. Continue corrective scale. Do not anticipate he will need insulin on discharge.
Prolonged QTC -magnesium and potassium normal.
Essential Hypertension -on losartan 50 mg daily and metoprolol 50 mg daily as outpatient. Blood pressure stable.
Prostate disease -continue finasteride and tamsulosin.
Hyperlipidemia -continue rosuvastatin.
Obesity due to excess calories -weight loss encouraged.
Full code
Updated patient's son at the bedside.
Anticipated Discharge: > 48 hours
Subjective/Interval History
-
Date of Service: April 29, 2024
Patient seen and examined. Complaining of leakage from abdominal wound.
Objective Data
-
Labs:
Laboratory Results
04/28/24 04/29/24 04/29/24
23:44 06:45 12:45
WBC 14.1 H
Hgb 13.2
Hct 37.2 L
Plt Count 270
APTT 53.9 H 87.4 H Pending
Vital Signs:
Vital Signs
Temp Pulse Resp BP Pulse Ox
99.8 F 90 18 125/77 94
04/29/24 08:48 04/29/24 07:23 04/29/24 07:23 04/29/24 07:23 04/29/24 07:23
I&O
04/28/24 04/29/24 04/30/24
06:59 06:59 06:59
Intake Total 660 / 660 480 / 480
Output Total 325 / 325 400 / 400
Balance 335 / 335 80 / 80
Review of Systems
-
History Source: Patient
All other systems: Reviewed and negative
--- NOTE | 2024-04-29 12:04 | W.PN.ID1 ---
Date of Service
Date of Service: April 29, 2024
Today's Communication
Consider CT a/p.
See below.
Assessment / Plan
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
-OR finding ischemic bowel without perforation.
# Recurrence of fever today
# Leukocytosis trending up
# Seroma drainage from incision site today
# PCN allergy
- Check blood cx's x 2
- Consider CT a/p with contast to evaluate for abscess
- Start empiric cefepime/metronidazole.
- Follow temps/wbc
#Additional Past Medical History:
DM
CAD s/p CABG/stents
Autoimmune hepatitis off Imuran since 2018
paroxysmal Afib
HTN
BPH
HLD
nephrolithiasis hx lithotripsy
Right RTC repair
left shoulder reverse total arthroplasty
Chief Complaint
-: Fever and Leukocytosis
Subjective / Review of Systems
Reconsult for fever.
Febrile this am, no chills. This am noted to have copious drainage of bloody yellow fluid from abdominal incision when he got up.
Continues to have drainage after going to bathroom. Nurse just cleaned him and put dressing.
No cough/SOB. No dysuria/urgency. No BM yet today. Had jell-o yesterday which came right out of his rectum.
Vital Signs / Physical Exam
Vital Signs
Vital Signs
Temp Pulse Resp BP Pulse Ox
99.6 F 84 17 141/61 93
04/29/24 11:03 04/29/24 11:03 04/29/24 11:03 04/29/24 11:03 04/29/24 11:03
Physical Exam
Constitutional: No Acute Distress and Comfortable
Eyes: No Conjunctival Hemorrhage and Sclera Anicteric
Cardiovascular: Regular Rate and S1/S2
Pulmonary: Clear
Gastrointestinal: Soft, Non Tender, Distended, Decreased Bowel Sounds and Other (Dressing dry at this time. )
Extremities: Negative Edema
Neurological: AO x 3
Objective Data
Lab Data
Lab Results
04/29/24 06:45
04/28/24 06:52
PT 14.5 Sec (11.4-14.6) 04/25/24 12:56
INR 1.15 04/25/24 12:56
APTT 87.4 Sec (23.4-35.0) H 04/29/24 06:45
Estimated Creat Clear 110 ml/min 04/28/24 06:52
Lactic Acid 1.5 mmol/L (0.7-2.0) 04/25/24 04:12
Total Bilirubin 1.1 mg/dl (0.2-1.3) 04/27/24 09:02
AST 28 U/L (17-59) 04/27/24 09:02
ALT 25 U/L (0-50) 04/27/24 09:02
Alkaline Phosphatase 87 U/L (38-126) 04/27/24 09:02
Most recent labs reviewed.
Micro Results:
04/25/24 06:41 Blood Culture - Preliminary
Blood/Venous No Growth in 4 days- Final report to follow
04/25/24 15:36 Blood Culture - Preliminary
Blood/Venous No Growth in 72 hours- Final report to follow
04/24/2024: CT a/p: Findings suggesting cecal volvulus in the right upper quadrant with moderate colonic distention and fecal material. Mild free fluid in the abdomen and pelvis likely reactive. Findings suggesting a Meckel's diverticulum. No evidence
of inflammation.
[2024-04-29] MEDS: HEPARIN 25000 UNITS/250 ML IV (12:32)
[2024-04-29] MEDS: LASIX 20 MG IV (12:40)
[2024-04-29] MEDS: NOVOLOG FLEXPEN-LOW RESISTANCE 1 UNITS SC ×2 (12:41→17:52)
[2024-04-29] MEDS: NOVOLOG FLEXPEN 5 UNITS SC (12:43)
--- NOTE | 2024-04-29 13:11 | W.PN.UPDATE ---
Update Note
Progress Note Update
I received a notification from the patient's nurse that his gown was completely saturated with a puddle of serous fluid on the floor when he was brushing his teeth. He also spiked a temperature earlier today of 101.1. Given these findings, I have
made the patient n.p.o. and asked the nurse to keep him on bedrest. CT abdomen and pelvis has been ordered. I updated the patient's son.
[2024-04-29 13:25] LABS: APTT 48.7 Sec (23.4-35.0)
--- NOTE | 2024-04-29 13:35 | CM ---
met with patient at bedside. sp right hemicolectomy pod#4,spiked temp of 101, inc wbc,had serous leakage from incision site.blood cxs/ct scan abd and pelvis ordered/npo.plan home with no needs when stable for discharge.
[2024-04-29] MEDS: OMNIPAQUE 50 ML PO (14:07)
[2024-04-29] MEDS: MAXIPIME 1000 MG IV ×2 (14:23→22:41)
[2024-04-29] MEDS: STERILE WATER FOR INJECTION 10 ML IV ×2 (14:23→22:41)
[2024-04-29 15:10] VITALS: BP 147/83
[2024-04-29 15:28] VITALS: BMI 29.5
[2024-04-29 16:57] LABS: Glucose - Point of Care 188 mg/dl (70-99)
[2024-04-29] MEDS: FLAGYL PO (17:42)
[2024-04-29] MEDS: NOVOLOG FLEXPEN SC (17:52)
[2024-04-29 19:09] LABS: APTT 113.7 Sec (23.4-35.0)
--- NOTE | 2024-04-29 19:32 | PTCARENOTE ---
during AM care while in bathroom, pt incision's leaked a voluminous amount through dressing, gown, blue pad and floor, placed pt in bed and changed dressing. pt abd is very distended, decreased bowel sounds. Notified AARON Crandall. pt made NPO, keep in
bed, plan for a scan. Family aware.
1630: 16fr NGT placed in left nare received 200mls greenish brown fluid immediately out.
[2024-04-29 19:55] VITALS: BP 140/68
--- NOTE | 2024-04-29 20:19 | W.PN.CARDCBS ---
Today's Communication / Plan
-
IV heparin gtt until can resume Eliquis post op
Resume Plavix when safer from surgical standpoint
IV lasix 20mg x1 today
Impression / Plan
-
Primary care physician: Bora Garcia
Outpatient ultrasound technician: Dr. Gael Mason at [facility] [phone]
Impression:
Presents 04/25/2024 with acute abdominal pain x 1 day
Acute cecal volvulus
s/p emergent right hemicolectomy 04/25/2024
Fever
Leukocytosis
Paroxysmal atrial fibrillation
Chronic anticoagulation on Eliquis
DM
CAD
s/p CABG at [facility] 2015
s/p PCI at [facility] 12/2023
Autoimmune hepatitis off Imuran since 2017
HTN
BPH
HLD
Chronic low back pain
nephrolithiasis hx lithotripsy
Right RTC repair
left shoulder reverse total arthroplasty
Plan:
-Presents 04/25/2024 with acute abdominal pain x 1 day with fevers, leukocytosis and found to have acute cecal volvulus.
-Status post emergent right hemicolectomy 04/25/2024, patient given Kcentra prior to emergent right hemicolectomy
-Overnight, had serosanguineous drainage from wounds and fever being addressed by CRS
-Lasix 20mg IV x1 tody for post op fluid retention
-Continue hep drip; hold Xarelto and Plavix for now
-History of PAF currently in SR
-Continue IV heparin gtt and monitor tele
-Hb stable, 13.2
-CAD s/p CABG and PCI 12/2023
-Would like to resume Plavix as soon as possible given PCI 12/2023
Will follow with you
Progress Note - Desk Representative
Subjective
Date of Service: April 29, 2024
Seen and examined lying supine in bed comfortable. No chest pain or pressure. No palpitations. No shortness of breath.
Objective
Labs:
04/29/24 06:45
04/28/24 06:52
Labs
Hgb 13.2 g/dL (13.0-18.0) 04/29/24 06:45
Hct 37.2 % (39.0-52.0) L 04/29/24 06:45
Plt Count 270 10^3/uL (130-400) 04/29/24 06:45
PT 14.5 Sec (11.4-14.6) 04/25/24 12:56
INR 1.15 04/25/24 12:56
APTT 113.7 Sec (23.4-35.0) H 04/29/24 18:51
Sodium 137 mmol/L (135-145) 04/28/24 06:52
Potassium 4.2 mmol/L (3.5-5.1) 04/28/24 06:52
BUN 21 mg/dl (9-20) H 04/28/24 06:52
Creatinine 0.5 mg/dL (0.7-1.3) L 04/28/24 06:52
Glucose 186 mg/dl (70-99) H 04/28/24 06:52
Troponins
04/28/24
06:52
Troponin I 0.033
Vital Signs and I&O:
Vital Signs
Temp Pulse Resp BP Pulse Ox
97.8 F 86 20 140/68 95
04/29/24 19:55 04/29/24 19:55 04/29/24 19:55 04/29/24 19:55 04/29/24 19:55
Vital Signs
Temp Pulse Resp BP Pulse Ox
97.8 F 86 20 140/68 95
04/29/24 19:55 04/29/24 19:55 04/29/24 19:55 04/29/24 19:55 06/14/24 19:55
Intake & Output
04/27/24 04/28/24 04/29/24 04/30/24
06:59 06:59 06:59 06:59
Intake Total 1919 / 1920 660 / 660 480 / 480 480 / 480
Output Total 1175 / 1175 325 / 325 400 / 400
Balance 745 / 745 335 / 335 80 / 80 480 / 480
Physical Exam
Physical Exam
GEN: No distress, awake, Ox3
HEENT: supple, anicteric, mmm
LUNGS: bronchovesicular BS, decreased but clear
CV:regular, S1/S2, 1/6 syst LSB
ABD: soft, mildly distended. dressing intact. + BS
EXT: Trace hand edema; no LE edema
[2024-04-29] MEDS: TOPROL XL 50 MG PO (21:18)
[2024-04-29] MEDS: FLAGYL 500 MG PO (21:18)
[2024-04-29] MEDS: PAXIL 20 MG PO (21:18)
[2024-04-29] MEDS: MELATONIN 5 MG PO (21:18)
[2024-04-29 23:49] VITALS: BP 117/71
[2024-04-30] VITALS (7 sets, daily range): BP systolic 94–162; BP diastolic 56–81; BMI 28.5
[2024-04-30 00:11] LABS: Glucose - Point of Care 182 mg/dl (70-99)
[2024-04-30] MEDS: LOPRESSOR 5 MG IV ×5 (00:27→23:50)
[2024-04-30] MEDS: NOVOLOG FLEXPEN-LOW RESISTANCE 1 UNITS SC ×4 (00:27→17:21)
[2024-04-30] MEDS: HEPARIN 25000 UNITS/250 ML IV ×2 (00:28→15:53)
[2024-04-30 03:15] LABS: APTT 148.6 Sec (23.4-35.0)
[2024-04-30] MEDS: STERILE WATER FOR INJECTION 10 ML IV ×3 (05:52→21:49)
[2024-04-30] MEDS: MAXIPIME 1000 MG IV ×3 (05:52→21:49)
[2024-04-30 06:08] LABS: Glucose - Point of Care 160 mg/dl (70-99)
[2024-04-30 07:38] LABS: Glucose - Point of Care 159 mg/dl (70-99)
[2024-04-30] MEDS: TOPROL XL PO (08:00)
--- NOTE | 2024-04-30 08:22 | W.PN.CRS1 ---
Addendum entered and electronically signed by Tio Thomas MD 04/30/24 08:41:
I saw and examined the patient independently.
The Runner Worker's note was reviewed and I agree with the note, assessment and plan except where noted below.
Comment: 79-year-old male A-fib on Eliquis, complex medical history presented with a cecal volvulus now postoperative day 5 from an ex lap, right hemicolectomy. CT scan from 04/29 reviewed. All the oral contrast was in the upper GI tract. Appears
to be pretty significant ileus, there was fluid across the anastomosis but the transverse colon onwards is very decompressed. No midline or significant intra-abdominal fluid/collection. NG tube placed with some clinical improvement.
N.p.o., NG tube.
Change oral meds to IV as able.
Continue antibiotics.
Up and out of bed and ambulate as able today.
Original Note:
Today's Communication / Plan
-
continue ngt
await labs
okay for heparin gtt for now, no eliquis/plavix yet
Assessment/Plan
-
79-year-old male with PMH of A-fib (on Eliquis), DM, CAD (s/p CABG, stents), autoimmune hepatitis, HTN, HLD, BPH, kidney stones who presents with acute abdominal pain, CT showing cecal volvulus
POD 5 ex lap, right hemicolectomy; overnight went into A-fib with RVR
WBC today pending, 14.[address] A/P 04/29- ileus vs obstruction, midline anterior abdominal wall incision appears intact. No dehiscence. Nonspecific mild soft tissue thickening in the region of the umbilicus. Minimal soft tissue stranding of subcutaneous fat in the
infraumbilical anterior abdominal wall. No focal collection or abscess within the abdominal wall. No hernia.
�Serous drainage from midline most likely subcutaneous seroma that opened; continue to to monitor, dressing change daily and as needed
�Continue NPO with NGT (output 900ml since insertion). Okay for po meds through NGT.
� Continue pain control with Tylenol, Dilaudid as needed
- On cefepime/flagyl per ID.
�Appreciate cardiology
-afib with RVR, cont metop
- okay for aspirin and heparin drip; continue holding Plavix and Xarelto
�OOB/IS, PT - discussed with patient and encouraged walking
� Appreciate hospitalist
- Await labwork
Subjective Data
Procedure
04/25/2024- open right colectomy
Subjective Data
Date of Service: April 30, 2024
Patient states he has flatus and bowel movements. He is urinating without difficulty. His pain has slightly improved. He has serous drainage still coming out of his midline incision. The NGT is bothering him but otherwise has no complaints.
Objective Data
-
Vital Signs
Temp Pulse Resp BP Pulse Ox
98.6 F 91 17 94/65 95
04/30/24 07:03 04/30/24 07:03 04/30/24 07:03 04/30/24 07:03 04/30/24 07:03
Intake & Output
04/29/24 04/30/24 05/01/24
06:59 06:59 06:59
Intake Total 480 / 480 570 / 570
Output Total 400 / 400 1150 / 1150
Balance 80 / 80 -580 / -580
Intake:
Oral fluids 480 / 480 480 / 480
Amount instilled into GI Tube ( 90 / 90
Total)
[place] Sump 90 / 90
Output:
Gastrointestinal tube output ( 900 / 900
Total)
[place] Sump 900 / 900
Urine, Voided 400 / 400 250 / 250
Lab Results
04/28/24 06:52
Physical Exam
-
General: No Acute Distress and AOx3
Abdomen: Soft, Distended (slight) and Tender (mild around incision)
Skin: Warm and Dry
Wound: Dressing Changed
Incision: Serous Drainage
[2024-04-30] MEDS: ASPIR LOW (ENTERIC COATED) 81 MG PO (08:39)
[2024-04-30] MEDS: FLOMAX 0.400000000000000022 MG PO ×2 (08:40→20:43)
[2024-04-30] MEDS: NSS (PRESERVATIVE FREE) 10 ML IV (08:40)
[2024-04-30] MEDS: FLAGYL 500 MG PO (08:40)
[2024-04-30] MEDS: PROTONIX IV 40 MG IV (08:40)
[2024-04-30] MEDS: PROSCAR 5 MG PO (08:41)
[2024-04-30] MEDS: CRESTOR 20 MG PO (08:41)
[2024-04-30] MEDS: NORMOSOL-R 1000 IV ×2 (08:52→21:49)
[2024-04-30 10:16] LABS: % Basophils 0.3 % (0-2); % Eosinophils 6.9 % (0-6); % Immature Granulocytes 0.5 % (0-0.5); % Lymphocytes 18.8 % (20.5-51.1); % Neutrophils 64.5 % (42.2-75.2); Absolute Eosinophils 0.8 10^3/uL (0-0.7); Absolute Immature Granulocytes 0.1 10^3/uL (0-0.05); Absolute Lymphocytes 2.1 10^3/uL (1.2-3.4); Absolute Neutrophils 7.1 10^3/uL (1.4-6.5); Hematocrit 37.7 % (39.0-52.0); Hemoglobin 12.9 g/dL (13.0-18.0); Mean Corp Hgb Conc. 34.2 g/dL (33.0-37.0); Mean Corpuscular Hgb 31.2 pg (27.0-31.0); Mean Corpuscular Volume 91.3 fL (80.0-94.0); Mean Platelet Volume 9.1 fL (7.4-10.4); Nucleated Red Blood Cells % 0 % (-); Platelet Count 283 10^3/uL (130-400); Red Blood Cell Count 4.13 10^6/uL (4.70-6.10); Red Cell Dist. Width 13.7 % (11.5-14.5); White Blood Cell Count 11.1 10^3/uL (4.8-10.8)
--- NOTE | 2024-04-30 11:01 | W.PN.CARDCBS ---
Today's Communication / Plan
-
Hold on further IV Lasix for now.
IV heparin gtt until can resume Eliquis post op
Resume Plavix as soon as feasible given PCI 12/2023 (Currently NPO given ileus)
Impression / Plan
-
Primary care physician: Bora Garcia
Outpatient hose operator: Dr. Gael Mason at [facility] [phone]
Impression:
Presents 04/25/2024 with acute abdominal pain x 1 day
Acute cecal volvulus
s/p emergent right hemicolectomy 04/25/2024
Fever
Leukocytosis
Paroxysmal atrial fibrillation
Chronic anticoagulation on Eliquis
CAD
s/p CABG at [facility] 2015
s/p PCI at [facility] 12/2023
DM
Autoimmune hepatitis off Imuran since 2017
HTN
BPH
HLD
Chronic low back pain
nephrolithiasis hx lithotripsy
Right RTC repair
left shoulder reverse total arthroplasty
Plan:
-Presents 04/25/2024 with acute abdominal pain x 1 day with fevers, leukocytosis and found to have acute cecal volvulus.
-Status post emergent right hemicolectomy 04/25/2024, patient given Kcentra prior to emergent right hemicolectomy
-Seen by surgery today
CT scan from 04/29 finds significant post-op ileus and therefore NG tube placed 04/30 and pt is now NPO
-Post-op volume overload
Lasix 20mg IV x1 on 04/29 -> wt down 1 lb but BP borderline this AM (94/65), Chem is pending. Hold on further IV Lasix for now.
-History of PAF, currently rate controlled AF
IV heparin gtt until can resume Eliquis post op
Hgb stable at 12.9
-CAD s/p CABG and PCI 12/2023
Resume Plavix as soon as feasible given PCI 12/2023 (Currently NPO given ileus)
Will plan to routinely see him again on Wednesday 05/02, please call if you need us sooner.
Total time 52 min
Progress Note - Churn Operator
Subjective
Date of Service: April 30, 2024
tells me he feels 'much better' after placement of NG tube, less SOB
Objective
Labs:
04/30/24 10:04
Labs
Hgb 12.9 g/dL (13.0-18.0) L 04/30/24 10:04
Hct 37.7 % (39.0-52.0) L 04/30/24 10:04
Plt Count 283 10^3/uL (130-400) 04/30/24 10:04
PT 14.5 Sec (11.4-14.6) 04/25/24 12:56
INR 1.15 04/25/24 12:56
APTT 108.0 Sec (23.4-35.0) H 04/30/24 10:04
Sodium 137 mmol/L (135-145) 04/28/24 06:52
Potassium 4.2 mmol/L (3.5-5.1) 04/28/24 06:52
BUN 21 mg/dl (9-20) H 04/28/24 06:52
Creatinine 0.5 mg/dL (0.7-1.3) L 04/28/24 06:52
Glucose 186 mg/dl (70-99) H 04/28/24 06:52
Troponins
04/28/24
06:52
Troponin I 0.033
Vital Signs and I&O:
Vital Signs
Temp Pulse Resp BP Pulse Ox
98.6 F 91 17 94/65 95
04/30/24 07:03 04/30/24 07:03 04/30/24 07:03 04/30/24 07:03 04/30/24 07:03
Vital Signs
Temp Pulse Resp BP Pulse Ox
98.6 F 91 17 94/65 95
04/30/24 07:03 04/30/24 07:03 04/30/24 07:03 04/30/24 07:03 04/30/24 07:03
Intake & Output
04/28/24 04/29/24 04/30/24 05/01/24
06:59 06:59 06:59 06:59
Intake Total 660 / 660 480 / 480 570 / 570
Output Total 325 / 325 400 / 400 1150 / 1150
Balance 335 / 335 80 / 80 -580 / -580
Physical Exam
Physical Exam
Well appearing, in bed, NGT to suction
Irreg Irreg, Nl S1 nd S2, No S3 or S4, 11/21 [facility], no rubs
--- NOTE | 2024-04-30 11:04 | W.PN.ID1 ---
Date of Service
Date of Service: April 30, 2024
Today's Communication
Continue abx.
Assessment / Plan
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
-OR finding ischemic bowel without perforation.
# fever
# Leukocytosis
- improved
# Ileus
# Seroma drainage from incision site today
# PCN allergy
- Blood cultures pending.
- Continue with empiric cefepime/metronidazole.
- Follow temps/wbc
#Additional Past Medical History:
DM
CAD s/p CABG/stents
Autoimmune hepatitis off Imuran since 2017
paroxysmal Afib
HTN
BPH
HLD
nephrolithiasis hx lithotripsy
Right RTC repair
left shoulder reverse total arthroplasty
Chief Complaint
-: Fever and Leukocytosis
Subjective / Review of Systems
Patient seen and examined.
Review of Systems: No Fever and No Chills
Vital Signs / Physical Exam
Vital Signs
Vital Signs
Temp Pulse Resp BP Pulse Ox
98.6 F 91 17 94/65 95
04/30/24 07:03 04/30/24 07:03 04/30/24 07:03 04/30/24 07:03 04/30/24 07:03
Physical Exam
Constitutional: No Acute Distress and Comfortable
Head: Other (NG to suction)
Eyes: No Conjunctival Hemorrhage and Sclera Anicteric
Cardiovascular: Regular Rate and S1/S2
Pulmonary: Clear
Gastrointestinal: Soft, Non Tender, Distended, Decreased Bowel Sounds and Other (Dressing dry at this time. )
Extremities: Negative Edema
Neurological: AO x 3
Objective Data
Lab Data
Lab Results
04/30/24 10:04
PT 14.5 Sec (11.4-14.6) 04/25/24 12:56
INR 1.15 04/25/24 12:56
APTT 108.0 Sec (23.4-35.0) H 04/30/24 10:04
Estimated Creat Clear 110 ml/min 04/28/24 06:52
Lactic Acid 1.5 mmol/L (0.7-2.0) 04/25/24 04:12
Total Bilirubin 1.1 mg/dl (0.2-1.3) 04/27/24 09:02
AST 28 U/L (17-59) 04/27/24 09:02
ALT 25 U/L (0-50) 04/27/24 09:02
Alkaline Phosphatase 87 U/L (38-126) 04/27/24 09:02
Most recent labs reviewed.
Micro Results:
04/25/24 06:41 Blood Culture - Final
Blood/Venous No Growth - Final Report
04/25/24 15:36 Blood Culture - Preliminary
Blood/Venous No Growth in 4 days- Final report to follow
04/29/24 13:44 Blood Culture - Pending
Blood/Venous
04/29/24 13:02 Blood Culture - Pending
Blood/Venous
Imaging:
04/29/2024 CT abdomen/pelvis with contrast: Generalized distention of the small bowel measuring up to 4.6 cm. Colon is relatively collapsed. Differential includes small bowel ileus versus obstruction. Please see full dictation for additional
detail.
04/24/2024: CT a/p: Findings suggesting cecal volvulus in the right upper quadrant with moderate colonic distention and fecal material. Mild free fluid in the abdomen and pelvis likely reactive. Findings suggesting a Meckel's diverticulum. No evidence
of inflammation.
Care Review
Plan reviewed with: Physician (Hospitalist)
--- NOTE | 2024-04-30 11:39 | W.PN.HOSP.TC ---
Today's Communication/Plan
-
Continue current care
Assessment / Plan
Assessment / Plan
Gen-AAOx3, NAD
HEENT-NC, AT, anicteric, clear oral mm, NG tube
Neck-supple
CV-reg, no M, +S1/S2
Lungs-clear B/L
Abd-soft, NT, ND
Ext-no edema
Musculoskeletal-no cyanosis, clubbing
Skin-warm and dry
Neuro-grossly non-focal
Psych-calm, cooperative
Post-op Ileus - now with NG tube, placed 04/29, 900cc output overnight. NPO. Abdominal pain improving. Surgical service ok with meds via NG tube.
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 Underwent right hemicolectomy April 25, findings of distended and nonperforated ischemic cecum.
Paroxysmal atrial fibrillation - Continue IV heparin. Resume Eliquis when okay with surgical service and ileus resolved. Still getting IV metoprolol as needed tachycardia.
Sepsis -without clear source. No abscess on CT abd/pelvis 04/29. Antibiotics resumed 04/29 by ID, cefepime & metronidazole. Blood cx repeated 04/29, results pending.
Does have subcutaneous seroma with drainage in the midline, as noted by surgical service.
History of autoimmune hepatitis
Followed at [place]
Last dose of Imuran was in 2017
AST elevation noted
CAD/CABG - last stented in December.
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
On Plavix - resume when okay with surgical service.
On Imdur 60 mg daily, losartan 50 mg daily, metoprolol 50 mg daily, rosuvastatin 20 mg daily as outpatient
EKG sinus rhythm with nonspecific ST-T changes
DM2 without hyperglycemia -on Januvia as outpatient. Hemoglobin A1c 7.0%. Glucose 160 this am. Recommend diet, exercise and weight loss as this may cure his diabetes. Discussed with patient.
Basal/bolus insulin on hold due to NPO status. Continue corrective scale. Do not anticipate he will need insulin on discharge.
Prolonged QTC -magnesium and potassium normal.
Essential Hypertension -on losartan 50 mg daily and metoprolol 50 mg daily as outpatient. Blood pressure stable.
Prostate disease -continue finasteride and tamsulosin.
Hyperlipidemia -continue rosuvastatin.
Obesity due to excess calories -weight loss encouraged.
Full code
Updated patient's son at the bedside.
Anticipated Discharge: > 48 hours
Subjective/Interval History
-
Date of Service: April 30, 2024
Patient see/examined. Feels better with NG tube.
Objective Data
-
Labs:
Laboratory Results
04/30/24 04/30/24 04/30/24
02:20 10:04 10:31
WBC 11.1 H
Hgb 12.9 L
Hct 37.7 L
Plt Count 283
APTT 148.6 H 108.0 H
Sodium Pending
Potassium Pending
Chloride Pending
Carbon Dioxide Pending
BUN Pending
Creatinine Pending
Glucose Pending
Calcium Pending
04/30/24
16:30
WBC
Hgb
Hct
Plt Count
APTT Pending
Sodium
Potassium
Chloride
Carbon Dioxide
BUN
Creatinine
Glucose
Calcium
Vital Signs:
Vital Signs
Temp Pulse Resp BP Pulse Ox
98.6 F 91 17 94/65 95
04/30/24 07:03 04/30/24 07:03 04/30/24 07:03 04/30/24 07:03 04/30/24 07:03
I&O
04/29/24 04/30/24 05/01/24
06:59 06:59 06:59
Intake Total 480 / 480 570 / 570
Output Total 400 / 400 1150 / 1150
Balance 80 / 80 -580 / -580
Review of Systems
-
History Source: Patient
All other systems: Reviewed and negative
[2024-04-30 12:04] LABS: Glucose - Point of Care 174 mg/dl (70-99)
[2024-04-30 12:33] LABS: Blood Urea Nitrogen 16 mg/dl (9-20); Calcium 9.2 mg/dl (8.4-10.2); Carbon Dioxide 22 mmol/L (22-30); Chloride 100 mmol/L (98-107); Estimated Creatinine Clearance 110 ml/min; Glucose 171 mg/dl (70-99); Potassium 3.7 mmol/L (3.5-5.1); Sodium 134 mmol/L (135-145); eGFR > 60.00
[2024-04-30] MEDS: FLAGYL 500 MG 100 IV ×2 (16:02→23:49)
[2024-04-30 16:33] LABS: Glucose - Point of Care 150 mg/dl (70-99)
[2024-04-30 16:46] LABS: APTT 96.2 Sec (23.4-35.0)
[2024-04-30] MEDS: TOPROL XL 50 MG PO (20:43)
[2024-04-30] MEDS: MELATONIN 5 MG PO (21:08)
[2024-04-30] MEDS: ROXICODONE 5 MG PO (21:08)
[2024-04-30] MEDS: PAXIL 20 MG PO (21:08)
[2024-04-30 23:47] LABS: Glucose - Point of Care 146 mg/dl (70-99)
[2024-04-30] MEDS: NOVOLOG FLEXPEN-LOW RESISTANCE SC (23:49)
[2024-05-01] VITALS (7 sets, daily range): BP systolic 104–137; BP diastolic 58–71; PULSE 78–107; O2SAT 92
[2024-05-01] MEDS: HEPARIN 25000 UNITS/250 ML IV ×2 (04:46→15:29)
[2024-05-01] MEDS: MAXIPIME 1000 MG IV ×3 (05:52→22:50)
[2024-05-01] MEDS: STERILE WATER FOR INJECTION 10 ML IV ×3 (05:52→22:50)
[2024-05-01] MEDS: NOVOLOG FLEXPEN-LOW RESISTANCE SC ×3 (05:53→18:08)
[2024-05-01] MEDS: LOPRESSOR 5 MG IV (05:53)
[2024-05-01 05:54] LABS: Glucose - Point of Care 139 mg/dl (70-99)
[2024-05-01] MEDS: REFRESH CELLUVISC GEL 1 DROPS OPHTH ×3 (06:31→20:01)
[2024-05-01 06:48] LABS: Hematocrit 35.1 % (39.0-52.0); Hemoglobin 12.3 g/dL (13.0-18.0); Mean Corpuscular Hgb 31.1 pg (27.0-31.0); Mean Corpuscular Volume 88.6 fL (80.0-94.0); Mean Platelet Volume 9.1 fL (7.4-10.4); Platelet Count 301 10^3/uL (130-400); Red Blood Cell Count 3.96 10^6/uL (4.70-6.10); Red Cell Dist. Width 13.8 % (11.5-14.5); White Blood Cell Count 9.6 10^3/uL (4.8-10.8)
[2024-05-01 07:00] LABS: APTT 112.2 Sec (23.4-35.0)
[2024-05-01 07:31] LABS: Blood Urea Nitrogen 18 mg/dl (9-20); Calcium 8.7 mg/dl (8.4-10.2); Carbon Dioxide 22 mmol/L (22-30); Chloride 101 mmol/L (98-107); Estimated Creatinine Clearance 94 ml/min; Glucose 149 mg/dl (70-99); Magnesium 2.2 mg/dl (1.6-2.3); Potassium 3.9 mmol/L (3.5-5.1); Sodium 135 mmol/L (135-145); eGFR > 60.00
[2024-05-01] MEDS: PROTONIX IV 40 MG IV (08:05)
[2024-05-01] MEDS: FLAGYL 500 MG 100 IV ×2 (08:06→15:59)
[2024-05-01] MEDS: PROSCAR 5 MG PO (08:06)
[2024-05-01] MEDS: NSS (PRESERVATIVE FREE) 10 ML IV (08:06)
[2024-05-01] MEDS: TOPROL XL 50 MG PO ×2 (08:06→19:59)
[2024-05-01] MEDS: CRESTOR 20 MG PO (08:06)
[2024-05-01] MEDS: ASPIR LOW (ENTERIC COATED) 81 MG PO (08:06)
[2024-05-01] MEDS: FLOMAX 0.400000000000000022 MG PO ×2 (08:06→19:59)
[2024-05-01] MEDS: ROXICODONE 5 MG PO ×3 (09:59→20:00)
[2024-05-01] MEDS: NORMOSOL-R 1000 IV ×2 (10:04→22:49)
--- NOTE | 2024-05-01 10:20 | W.PN.HOSP.TC ---
Addendum entered and electronically signed by Franc Yao DO 05/01/24 11:59:
Patient actually able to swallow meds on his own despite NG tube. Discussed with nursing. Resume meds orally.
Original Note:
Today's Communication/Plan
-
Await return of bowel function
Change metoprolol to tartrate
Assessment / Plan
Assessment / Plan
Gen-AAOx3, NAD
HEENT-NC, AT, anicteric, clear oral mm, NG tube
Neck-supple
CV-reg, no M, +S1/S2
Lungs-clear B/L
Abd-soft, NT, ND
Ext-no edema
Musculoskeletal-no cyanosis, clubbing
Skin-warm and dry
Neuro-grossly non-focal
Psych-calm, cooperative
Post-op Ileus - now with NG tube, placed 04/29, 1.3L output overnight. NPO. Abdominal pain improving. Surgical service ok with meds via NG tube.
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 Underwent right hemicolectomy April 25, findings of distended and nonperforated ischemic cecum.
Paroxysmal atrial fibrillation - Continue IV heparin. Resume Eliquis when okay with surgical service and ileus resolved. Change Toprol-XL to metoprolol tartrate 25 mg every 6 hours via tube. Stop IV metoprolol.
Sepsis - without clear source. No abscess on CT abd/pelvis 04/29. Antibiotics resumed 04/29 by ID, cefepime & metronidazole. Blood cx repeated 04/29, negative so far. WBC count now normal. Last fever 48 hours ago.
Does have subcutaneous seroma with drainage in the midline, as noted by surgical service.
History of autoimmune hepatitis
Followed at [place]
Last dose of Imuran was in 2018
AST elevation noted
CAD/CABG - last stented in December.
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
On Plavix - resume when okay with surgical service.
On Imdur 60 mg daily, losartan 50 mg daily, metoprolol 50 mg daily, rosuvastatin 20 mg daily as outpatient
EKG sinus rhythm with nonspecific ST-T changes
DM2 without hyperglycemia -on Januvia as outpatient. Hemoglobin A1c 7.0%. Glucose 149 this am. Recommend diet, exercise and weight loss as this may cure his diabetes. Discussed with patient.
Basal/bolus insulin on hold due to NPO status. Continue corrective scale. Do not anticipate he will need insulin on discharge.
Prolonged QTC -magnesium and potassium normal.
Essential Hypertension -on losartan 50 mg daily and metoprolol 50 mg daily as outpatient. Blood pressure stable.
Prostate disease -continue finasteride and tamsulosin.
Hyperlipidemia -continue rosuvastatin.
Obesity due to excess calories -weight loss encouraged.
Full code
Updated patient's son at the bedside.
Anticipated Discharge: > 48 hours
Subjective/Interval History
-
Date of Service: May 01, 2024
Patient seen and examined. Mild abdominal pain.
Objective Data
-
Labs:
Laboratory Results
05/01/24 05/01/24
06:36 13:00
WBC 9.6
Hgb 12.3 L
Hct 35.1 L
Plt Count 301
APTT 112.2 H Pending
Sodium 135
Potassium 3.9
Chloride 101
Carbon Dioxide 22
BUN 18
Creatinine 0.7
Glucose 149 H
Calcium 8.7
Vital Signs:
Vital Signs
Temp Pulse Resp BP Pulse Ox
98.2 F 82 17 111/70 99
05/01/24 07:50 05/01/24 08:06 05/01/24 07:50 05/01/24 08:06 05/01/24 08:00
I&O
04/30/24 05/01/24 05/02/24
06:59 06:59 06:59
Intake Total 570 / 570 2498 / 2498
Output Total 1150 / 1150 1300 / 1300
Balance -580 / -580 1198 / 1198
Review of Systems
-
History Source: Patient
All other systems: Reviewed and negative
[2024-05-01] MEDS: NORMOSOL-R IV (10:48)
--- NOTE | 2024-05-01 11:09 | W.PN.ID1 ---
Date of Service
Date of Service: May 01, 2024
Today's Communication
Continue abx.
Assessment / Plan
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
- OR finding of ischemic bowel without perforation.
# fever
# Leukocytosis
- improved
# Ileus
# Seroma drainage from incision site today
# PCN allergy
- Blood cultures pending.
- Continue with empiric cefepime/metronidazole.
- Follow temps/wbc
#Additional Past Medical History:
DM
CAD s/p CABG/stents
Autoimmune hepatitis off Imuran since 2017
paroxysmal Afib
HTN
BPH
HLD
nephrolithiasis hx lithotripsy
Right RTC repair
left shoulder reverse total arthroplasty
Chief Complaint
-: Fever and Leukocytosis
Subjective / Review of Systems
Review of Systems: No Fever and No Chills
Vital Signs / Physical Exam
Vital Signs
Vital Signs
Temp Pulse Resp BP Pulse Ox
98.2 F 82 17 111/70 99
05/01/24 07:50 05/01/24 08:06 05/01/24 07:50 05/01/24 08:06 05/01/24 08:00
Physical Exam
Constitutional: No Acute Distress and Comfortable
Head: Other (NG to suction)
Eyes: No Conjunctival Hemorrhage and Sclera Anicteric
Cardiovascular: Regular Rate and S1/S2; Negative S3/S4
Pulmonary: Clear; Negative Wheezes or Rales
Gastrointestinal: Soft, Non Tender, Distended, Decreased Bowel Sounds and Other (Dressing in place. No strikethrough)
Extremities: Negative Edema
Neurological: AO x 3
Objective Data
Lab Data
Lab Results
05/01/24 06:36
05/01/24 06:36
PT 14.5 Sec (11.4-14.6) 04/25/24 12:56
INR 1.15 04/25/24 12:56
APTT 112.2 Sec (23.4-35.0) H 05/01/24 06:36
Estimated Creat Clear 94 ml/min 05/01/24 06:36
Lactic Acid 1.5 mmol/L (0.7-2.0) 04/25/24 04:12
Total Bilirubin 1.1 mg/dl (0.2-1.3) 04/27/24 09:02
AST 28 U/L (17-59) 04/27/24 09:02
ALT 25 U/L (0-50) 04/27/24 09:02
Alkaline Phosphatase 87 U/L (38-126) 04/27/24 09:02
Most recent labs reviewed.
Micro Results:
04/25/24 15:36 Blood Culture - Final
Blood/Venous No Growth - Final Report
04/29/24 13:44 Blood Culture - Preliminary
Blood/Venous No Growth in 24 hours- Final report to follow
04/29/24 13:02 Blood Culture - Preliminary
Blood/Venous No Growth in 24 hours- Final report to follow
04/25/24 06:41 Blood Culture - Final
Blood/Venous No Growth - Final Report
Imaging:
04/29/2024 CT abdomen/pelvis with contrast: Generalized distention of the small bowel measuring up to 4.6 cm. Colon is relatively collapsed. Differential includes small bowel ileus versus obstruction. Please see full dictation for additional
detail.
04/24/2024: CT a/p: Findings suggesting cecal volvulus in the right upper quadrant with moderate colonic distention and fecal material. Mild free fluid in the abdomen and pelvis likely reactive. Findings suggesting a Meckel's diverticulum. No evidence
of inflammation.
--- NOTE | 2024-05-01 12:27 | W.PN.GS2 ---
Today's Communication / Plan
-
NPO/NGT/IVF
Assessment / Plan
-
79-year-old male with PMH of A-fib (on Eliquis), DM, CAD (s/p CABG, stents), autoimmune hepatitis, HTN, HLD, BPH, kidney stones who presents with acute abdominal pain, CT showing cecal volvulus
POD #6 ex lap with hemicolectomy
AFib/RVR episode post op: cards/medicine following with us
Slow bowel recovery/ileus and possible seroma at incision site.
Did pass a stool today with some improvement in distention.
Labs stable. Mild acute anemia secondary to expected losses and hemodilution
CT A/P 6/14- ileus vs obstruction, midline anterior abdominal wall incision appears intact. No dehiscence. Nonspecific mild soft tissue thickening in the region of the umbilicus. Minimal soft tissue stranding of subcutaneous fat in the
infraumbilical anterior abdominal wall. No focal collection or abscess within the abdominal wall. No hernia.
Plan:
Continue NPO with NGT and follow for bowel recovery
Continue IVF while NPO
PO meds as per hospitalist/cards, ideally would convert essential meds to IV if able, given possible issues with absorption
ABX as per ID
OOB/IS/PT following
Trend labs
Local wound care
Analgesics prn/scheduled
On therapeutic AC with heparin gtt, continue hold PO Eliquis
Subjective Data
-
Date of Service: May 01, 2024
Patient seen and examined at bedside with Dr. Thomas. Odette n/v. Passed a large BM today with flatus. Pain improved today. Gustafson out, voiding.
Objective Data
-
Intake and Output
04/30/24 05/01/24 05/02/24
06:59 06:59 06:59
Intake Total 570 / 570 2498 / 2498
Output Total 1150 / 1150 1300 / 1300
Balance -580 / -580 1198 / 1198
Intake:
Oral fluids 480 / 480
IV fluids (Total) 2227
IV piggybacks 120 / 120
Amount instilled into GI Tube ( 90 / 90 150 / 150
Total)
Carteret Sump 90 / 90 150 / 150
Output:
Gastrointestinal tube output ( 900 / 900 1300 / 1300
Total)
Carteret Sump 900 / 900 1300 / 1300
Urine, Voided 250 / 250
Other:
Number of approximated MODERATE 1
amounts of urine
Vital Signs
Temp Pulse Resp BP Pulse Ox
98.4 F 78 17 122/61 93
05/01/24 11:56 05/01/24 11:56 05/01/24 11:56 05/01/24 11:56 05/01/24 11:56
Lab Results
05/01/24 06:36
05/01/24 06:36
Calcium 8.7 mg/dl (8.4-10.2) 05/01/24 06:36
Magnesium 2.2 mg/dl (1.6-2.3) 05/01/24 06:36
Total Bilirubin 1.1 mg/dl (0.2-1.3) 04/27/24 09:02
AST 28 U/L (17-59) 04/27/24 09:02
ALT 25 U/L (0-50) 04/27/24 09:02
Alkaline Phosphatase 87 U/L (38-126) 04/27/24 09:02
Total Protein 5.9 g/dl (6.3-8.2) L 04/27/24 09:02
Albumin 3.1 g/dl (3.5-5.0) L 04/27/24 09:02
Physical Exam
-
NAD
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
NGT with bilious outputs
Incisions well approximated, healing. Serous drainage noted from wound: dressing changed
[2024-05-01 12:32] LABS: Glucose - Point of Care 126 mg/dl (70-99)
[2024-05-01 14:16] LABS: APTT 125.6 Sec (23.4-35.0)
[2024-05-01 18:07] LABS: Glucose - Point of Care 127 mg/dl (70-99)
[2024-05-01 21:05] LABS: APTT 98.4 Sec (23.4-35.0)
[2024-05-01] MEDS: MELATONIN 5 MG PO (22:50)
[2024-05-01] MEDS: PAXIL 20 MG PO (22:50)
[2024-05-02] VITALS (7 sets, daily range): BP systolic 113–140; BP diastolic 57–83; PULSE 102; O2SAT 97; BMI 29.6
[2024-05-02 00:07] LABS: Glucose - Point of Care 115 mg/dl (70-99)
[2024-05-02] MEDS: FLAGYL 500 MG 100 IV ×3 (00:13→15:31)
[2024-05-02] MEDS: NOVOLOG FLEXPEN-LOW RESISTANCE SC ×4 (00:13→17:51)
[2024-05-02 03:56] LABS: APTT 58.1 Sec (23.4-35.0)
--- NOTE | 2024-05-02 04:00 | PTCARENOTE ---
pt c/o feeling like NGT was folded in half in the back of his throat. On assessment, tip of NGT was protruding from back of patient's throat. NGT was replaced in the R nare and instantly drained green fluid. Assessment ongoing.
[2024-05-02 04:32] LABS: Blood Urea Nitrogen 18 mg/dl (9-20); Calcium 8.3 mg/dl (8.4-10.2); Carbon Dioxide 22 mmol/L (22-30); Chloride 103 mmol/L (98-107); Estimated Creatinine Clearance 110 ml/min; Glucose 117 mg/dl (70-99); Potassium 4.1 mmol/L (3.5-5.1); Sodium 134 mmol/L (135-145); eGFR > 60.00
[2024-05-02] MEDS: HEPARIN 25000 UNITS/250 ML IV ×2 (06:06→17:48)
[2024-05-02 06:08] LABS: Glucose - Point of Care 127 mg/dl (70-99)
[2024-05-02] MEDS: STERILE WATER FOR INJECTION 10 ML IV ×3 (06:08→21:56)
[2024-05-02] MEDS: MAXIPIME 1000 MG IV ×3 (06:08→21:58)
[2024-05-02] MEDS: PROTONIX IV 40 MG IV (07:40)
[2024-05-02] MEDS: NSS (PRESERVATIVE FREE) 10 ML IV (07:40)
[2024-05-02] MEDS: PROSCAR 5 MG PO (07:42)
[2024-05-02] MEDS: FLOMAX 0.400000000000000022 MG PO ×2 (07:42→20:27)
[2024-05-02] MEDS: CRESTOR 20 MG PO (07:42)
[2024-05-02] MEDS: ASPIR LOW (ENTERIC COATED) 81 MG PO (07:42)
[2024-05-02] MEDS: TOPROL XL 50 MG PO (07:42)
[2024-05-02] MEDS: REFRESH CELLUVISC GEL 1 DROPS OPHTH ×3 (07:45→17:14)
[2024-05-02] MEDS: ROXICODONE 5 MG PO ×2 (07:45→13:19)
--- NOTE | 2024-05-02 08:53 | W.PN.CARDCBS ---
Addendum entered and electronically signed by Americo Saab DO 05/02/24 10:56:
I saw and examined the patient.
The Home Insurance Agent's note was reviewed and I agree with the note.
Comment:
Plan:
Remains rate controlled aFib
Cont IV heparin anticoagulation for now until taking orals then resume Eliquis and Plavix
Pt with hx CABG 2015 and recent PCI of bypass graft at [facility] in Dec 2023. Eventually resume Plavix and stop ASA
Remains euvolemic. Cont to monitor volume as receiving IVF.
Original Note:
Today's Communication / Plan
-
Remains in rate controlled Afib
Cont Heparin gtt and aspirin. Eventually resume Eliquis and Plavix
Impression / Plan
-
Primary care physician: Bora Garcia
Outpatient anesthesia resident: Dr. Gael Mason at [facility] [phone]
Impression:
Presents 04/25/2024 with acute abdominal pain x 1 day
Acute cecal volvulus
s/p emergent right hemicolectomy 04/25/2024
Fever
Leukocytosis
Paroxysmal atrial fibrillation
recurrence of Afib 04/27/24
Chronic anticoagulation on Eliquis
CAD
s/p CABG at [place] 2015
s/p PCI at [facility] 12/2023
DM
Autoimmune hepatitis off Imuran since 2017
HTN
BPH
HLD
Chronic low back pain
nephrolithiasis hx lithotripsy
Right RTC repair
left shoulder reverse total arthroplasty
Plan:
-Patient remains in Afib with controlled ventricular response. He occasionally feels palpitations, but largely asymptomatic. HRs controlled with Toprol XL 50 mg BID. Patient was taking Toprol XL 50 mg daily prior to admission
-Outpatient dose of Eliquis 5 mg BID has been on hold since admission due to surgery. Patient has been on Heparin gtt since 04/27/24. Stable Plt # 301 on 05/01/24. Eventually resume Eliquis.
-Briefly reviewed rate control vs rhythm control. Reviewed that patient's HR controlled and that could consider eventual CV, but with ongoing ileus he is not a candidate at this time.
-Patient has received 7 L of IVFs since admission. Recorded weights are up and down. No LE edema. Patient was given Lasix 20 mg IV x1 on 04/29/24 resulting in hypotension. No MARY though. Patient was not taking a diuretic prior to admission. No
evidence of volume overload currently.
-Patient with CABG in 2016 and more recently he had PCI of a bypass graft at [facility] 12/2023. Patient was taking Plavix and Eliquis prior to admission. Eliquis as noted above. Plavix has been on hold since admission. Currently ordered aspirin 81 mg
daily. Eventually resume Plavix and stop aspirin.
HPI: Patient came to [facility] very early this morning with abdominal pain and was admitted with acute cecal volvulus and cardiology has been consulted for possible post-op atrial fibrillation. Patient has a past medical history significant for coronary
artery disease status post CABG and stents, hypertension, hyperlipidemia, paroxysmal atrial fibrillation on chronic anticoagulation with Eliquis. Patient was found to have acute cecal volvulus on imaging. He was also noted to have fever, Tmax
101.4. Patient was taken emergently to the OR and underwent open right colectomy on 04/25/2024. Patient says Afib was diagnosed after he wore a week long heart monitor following PCI in 12/2023. He was noted to have Afib and was started on Eliquis at
that time. He was continued on Plavix as well, but aspirin was stopped when Eliuquis was added. Last dose of Eliquis was 04/24/24 AM. Given he was on anticoagulation he was given Kcentra. Patient denies palpitations post-op. Tele reviewed and it
appears to be baseline artifact on ECG.
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
Subjective
Date of Service: May 02, 2024
He describes episodic abdominal pain followed by uncontrollable diarrhea
Objective
Labs:
05/01/24 06:36
05/02/24 03:38
Labs
Hgb 12.3 g/dL (13.0-18.0) L 05/01/24 06:36
Hct 35.1 % (39.0-52.0) L 05/01/24 06:36
Plt Count 301 10^3/uL (130-400) 05/01/24 06:36
PT 14.5 Sec (11.4-14.6) 04/25/24 12:56
INR 1.15 04/25/24 12:56
APTT 58.1 Sec (23.4-35.0) H 05/02/24 03:38
Sodium 134 mmol/L (135-145) L 05/02/24 03:38
Potassium 4.1 mmol/L (3.5-5.1) 05/02/24 03:38
BUN 18 mg/dl (9-20) 05/02/24 03:38
Creatinine 0.6 mg/dL (0.7-1.3) L 05/02/24 03:38
Glucose 117 mg/dl (70-99) H 05/02/24 03:38
Vital Signs and I&O:
Vital Signs
Temp Pulse Resp BP Pulse Ox
98.4 F 82 18 113/62 96
05/02/24 07:40 05/02/24 07:42 05/02/24 07:40 05/02/24 07:42 05/02/24 07:40
Vital Signs
Temp Pulse Resp BP Pulse Ox
98.4 F 82 18 113/62 96
05/02/24 07:40 05/02/24 07:42 05/02/24 07:40 05/02/24 07:42 05/02/24 07:40
Intake & Output
04/30/24 05/01/24 05/02/24 05/03/24
06:59 06:59 06:59 06:59
Intake Total 570 / 570 2498 / 2498 2380 / 2380
Output Total 1150 / 1150 1300 / 1300 1410 / 1410
Balance -580 / -580 1198 / 1198 970 / 970
Physical Exam
Physical Exam
GEN: AAO x3
HEENT: MMM
LUNGS: No audible wheeze
CV: Afib on tele
ABD: +NGT draining bilious fluid
EXT: No edema B/L
NEURO: Gross non-focal
SKIN: No rash
--- NOTE | 2024-05-02 09:35 | W.PN.HOSP.TC ---
Today's Communication/Plan
-
see bold
Assessment / Plan
Assessment / Plan
Post-op Ileus - now with NG tube, placed 04/29, continue IVFs, NPO. Abdominal pain improving. Surgical service ok with meds via NG tube.
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 Underwent right hemicolectomy 04/[address] Jiang, findings of distended and nonperforated ischemic cecum.
Paroxysmal atrial fibrillation - Continue IV heparin. Resume Eliquis when okay with surgical service and ileus resolved. Change Toprol-XL to metoprolol tartrate 50 mg every 12 hours via tube. Stop IV metoprolol.
Sepsis - without clear source. No abscess on CT abd/pelvis 04/29. Antibiotics resumed 04/29 by ID, cefepime & metronidazole. Blood cx repeated 04/29, negative so far. Monitor WBC/fever curve
Does have subcutaneous seroma with drainage in the midline, as noted by surgical service.
History of autoimmune hepatitis
Followed at [place]
Last dose of Imuran was in 2017
AST elevation noted
CAD/CABG - last stented in December.
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
On Plavix - still held - resume when okay with surgical service.
On Imdur 60 mg daily, losartan 50 mg daily - still hed
Resumed metoprolol, rosuvastatin 20 mg daily
EKG sinus rhythm with nonspecific ST-T changes
DM2 without hyperglycemia -on Januvia as outpatient. Hemoglobin A1c 7.0%. Glucose 149 this am. Recommend diet, exercise and weight loss as this may cure his diabetes. Discussed with patient.
Basal/bolus insulin on hold due to NPO status. Continue corrective scale. Do not anticipate he will need insulin on discharge.
Prolonged QTC -magnesium and potassium normal. Repeat EKG.
Essential Hypertension -blood pressure acceptable on only metoprolol. Holding losartan.
Prostate disease -continue finasteride and tamsulosin.
Hyperlipidemia -continue rosuvastatin.
Obesity due to excess calories -weight loss encouraged.
DVT prophylaxis�heparin drip
Full code
Total time spent to see the patient on the floor, examine the patient, review data and lab results, discuss treatment plan with patient, nursing staff around 35 minutes.
Physical Exam
General: No acute distress
HEENT: Normocephalic, Atraumatic, EOMI, MMM, +NGT
Respiratory: Clear to Auscultation bilaterally
Cardiac: Normal S1/S2, Regular Rate and Rhythm
GI: Soft, appropriately tender, midline incision with rik in place, incisions clean/dry/intact
Extremities: No Clubbing, Cyanosis, or Edema
Neuro: Nonfocal/Grossly Intact
Psych: Calm, Cooperative
Derm: No Visible lesions
Anticipated Discharge: > 48 hours
Subjective/Interval History
-
Date of Service: May 02, 2024
Patient states that his abdominal pain waxes and wanes. Denies chest pain, shortness of breath. No nausea. He is having stools.
Objective Data
-
Labs:
Laboratory Results
05/02/24 05/02/24
03:38 10:05
APTT 58.1 H Pending
Sodium 134 L
Potassium 4.1
Chloride 103
Carbon Dioxide 22
BUN 18
Creatinine 0.6 L
Glucose 117 H
Calcium 8.3 L
Vital Signs:
Vital Signs
Temp Pulse Resp BP Pulse Ox
98.4 F 82 18 113/62 96
05/02/24 07:40 05/02/24 07:42 05/02/24 07:40 05/02/24 07:42 05/02/24 08:00
I&O
05/01/24 05/02/24 05/03/24
06:59 06:59 06:59
Intake Total 2498 / 2498 2380 / 2380
Output Total 1300 / 1300 1410 / 1410
Balance 1198 / 1198 970 / 970
--- NOTE | 2024-05-02 09:58 | W.PN.CRS1 ---
Today's Communication / Plan
-
Maintain NG tube today and will reevaluate later
Continue heparin drip until the NG tube is removed.
Assessment/Plan
-
79-year-old male with PMH of A-fib (on Eliquis), DM, CAD (s/p CABG, stents), autoimmune hepatitis, HTN, HLD, BPH, kidney stones who presents with acute abdominal pain, CT showing cecal volvulus
POD 5 ex lap, right hemicolectomy; overnight went into A-fib with RVR
WBC yesterday was 9.6
CT A/P 04/29- ileus vs obstruction, midline anterior abdominal wall incision appears intact. No dehiscence. Nonspecific mild soft tissue thickening in the region of the umbilicus. Minimal soft tissue stranding of subcutaneous fat in the
infraumbilical anterior abdominal wall. No focal collection or abscess within the abdominal wall. No hernia.
�Serous drainage from midline most likely subcutaneous seroma that opened; continue to to monitor, dressing change daily and as needed. Much less drainage overnight.
�Continue NPO with NGT (output 610). It seems his ileus is resolving. Okay for po meds through NGT.
� Continue pain control with Tylenol, oxycodone as needed
- On cefepime/flagyl per ID.
�Appreciate cardiology
-afib with RVR, cont metop
- okay for aspirin and heparin drip; continue holding Plavix and Xarelto
�OOB/IS, PT - discussed with patient and encouraged walking
� Appreciate hospitalist
Subjective Data
Procedure
04/25/2024- open right colectomy for cecal volvulus
Subjective Data
Date of Service: May 02, 2024
He has no complaints other than the NGT. It was replaced last night as it was coiled in the back of his throat. He has minimal abdominal discomfort but does feel some pain on the right side just before moving his bowels. He states he is moving his
bowels a lot more frequently and he feels much less distended.
Objective Data
-
Vital Signs
Temp Pulse Resp BP Pulse Ox
98.4 F 82 18 113/62 96
05/02/24 07:40 05/02/24 07:42 05/02/24 07:40 05/02/24 07:42 05/02/24 08:00
Intake & Output
05/01/24 05/02/24 05/03/24
06:59 06:59 06:59
Intake Total 2498 / 2498 2380 / 2380
Output Total 1300 / 1300 1410 / 1410
Balance 1198 / 1198 970 / 970
Intake:
Oral fluids 240 / 240
IV fluids (Total) 2228 / 2228 1650 / 1650
IV piggybacks 120 / 120 310 / 310
Amount instilled into GI Tube ( 150 / 150 180 / 180
Total)
[place] Sump 150 / 150 180 / 180
Output:
Gastrointestinal tube output ( 1300 / 1300 610 / 610
Total)
[place] Sump 1300 / 1300 610 / 610
Urine, Voided 800 / 800
Other:
Number of approximated MODERATE 1 1
amounts of urine
Lab Results
05/01/24 06:36
05/02/24 03:38
Physical Exam
-
General: No Acute Distress
Abdomen: Soft, Distended (Minimal with tympany left upper quadrant) and Non Tender
Extremities: No Calf Tenderness
Wound: No Signs of Infection and Serous Drainage (Minimal)
Incision: Clear, Dry, Intact
[2024-05-02 10:35] LABS: APTT 88.4 Sec (23.4-35.0)
[2024-05-02] MEDS: NORMOSOL-R 1000 IV (11:59)
[2024-05-02 12:01] LABS: Glucose - Point of Care 133 mg/dl (70-99)
--- NOTE | 2024-05-02 12:50 | W.PN.ID1 ---
Date of Service
Date of Service: May 02, 2024
Today's Communication
continue abx for today, ID will reassess tomorrow
Assessment / Plan
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
- OR finding of ischemic bowel without perforation.
# fever - resolved
# Leukocytosis - resolved
# Ileus
# Seroma drainage from incision site
# PCN allergy - hives
- Blood cultures NGTD
- wound drainage reportedly declining
- Continue with empiric cefepime/metronidazole for now
- Follow temps/wbc
#Additional Past Medical History:
DM
CAD s/p CABG/stents
Autoimmune hepatitis off Imuran since 2018
paroxysmal Afib
HTN
BPH
HLD
nephrolithiasis hx lithotripsy
Right RTC repair
left shoulder reverse total arthroplasty
Chief Complaint
-: Fever and Leukocytosis
Subjective / Review of Systems
afebrile, bp stable, HR normal
WBC normalized yesterday and not repeated today
cr stable
blood cultures x2 no growth at 48 hrs
drainage from wound declining,
pleasant, in good spirits
colickly right sided abdominal pain - asymptomatic between colicks
having BMs
pleased to have less distension
Vital Signs / Physical Exam
Vital Signs
Vital Signs
Temp Pulse Resp BP Pulse Ox
98.1 F 85 18 129/57 94
05/02/24 11:30 05/02/24 11:30 05/02/24 11:30 05/02/24 11:30 05/02/24 11:30
Physical Exam
Constitutional: No Acute Distress
Cardiovascular: Regular Rate and S1/S2; Negative Murmur or Rub
Pulmonary: Clear and Symmetric; Negative Wheezes or Rales
Gastrointestinal: Soft, Tender (as expected post op), Non Distended and Normal Bowel Sounds
Skin: Warm and Dry; Negative Rash or Jaundice
Wound: Other (surgical site no significant erythema, minimal serous drainage on the dressing, no active drainage, no dehiscence )
Neurological: Awake
Objective Data
Lab Data
Lab Results
05/01/24 06:36
05/02/24 03:38
PT 14.5 Sec (11.4-14.6) 04/25/24 12:56
INR 1.15 04/25/24 12:56
APTT 88.4 Sec (23.4-35.0) H 05/02/24 10:06
Estimated Creat Clear 110 ml/min 05/02/24 03:38
Lactic Acid 1.5 mmol/L (0.7-2.0) 04/25/24 04:12
Total Bilirubin 1.1 mg/dl (0.2-1.3) 04/27/24 09:02
AST 28 U/L (17-59) 04/27/24 09:02
ALT 25 U/L (0-50) 04/27/24 09:02
Alkaline Phosphatase 87 U/L (38-126) 04/27/24 09:02
Most recent labs reviewed.
Micro Results:
04/29/24 13:44 Blood Culture - Preliminary
Blood/Venous No Growth in 48 hours- Final report to follow
04/29/24 13:02 Blood Culture - Preliminary
Blood/Venous No Growth in 48 hours- Final report to follow
04/25/24 15:36 Blood Culture - Final
Blood/Venous No Growth - Final Report
04/25/24 06:41 Blood Culture - Final
Blood/Venous No Growth - Final Report
Imaging:
04/29/2024 CT abdomen/pelvis with contrast: Generalized distention of the small bowel measuring up to 4.6 cm. Colon is relatively collapsed. Differential includes small bowel ileus versus obstruction. Please see full dictation for additional
detail.
04/24/2024: CT a/p: Findings suggesting cecal volvulus in the right upper quadrant with moderate colonic distention and fecal material. Mild free fluid in the abdomen and pelvis likely reactive. Findings suggesting a Meckel's diverticulum. No evidence
of inflammation.
--- NOTE | 2024-05-02 14:10 | CM ---
Reviewed the chart notes. Patient remains NPO. NG tube placed yesterday. CM continues to be available to patient/family and is monitoring medical plan for needs at discharge.
Plan: Discharge to home when medically stable.
[2024-05-02 16:30] LABS: APTT 142.4 Sec (23.4-35.0)
[2024-05-02] MEDS: LOPRESSOR 5 MG IV (17:15)
[2024-05-02 17:51] LABS: Glucose - Point of Care 124 mg/dl (70-99)
[2024-05-02] MEDS: TOPROL XL 100 MG PO (20:27)
[2024-05-02] MEDS: PAXIL 20 MG PO (21:58)
[2024-05-02] MEDS: MELATONIN 5 MG PO (21:58)
[2024-05-03 00:13] LABS: Glucose - Point of Care 135 mg/dl (70-99)
[2024-05-03] MEDS: NOVOLOG FLEXPEN-LOW RESISTANCE SC ×4 (00:15→18:04)
[2024-05-03] MEDS: FLAGYL 500 MG 100 IV (00:45)
[2024-05-03 01:46] LABS: APTT 96.4 Sec (23.4-35.0)
[2024-05-03] MEDS: NORMOSOL-R 1000 IV ×3 (01:58→23:18)
[2024-05-03 03:00] VITALS: BP 132/64
[2024-05-03] MEDS: STERILE WATER FOR INJECTION 10 ML IV ×3 (05:07→21:21)
[2024-05-03] MEDS: MAXIPIME 1000 MG IV ×3 (05:07→21:21)
[2024-05-03 05:40] LABS: Glucose - Point of Care 129 mg/dl (70-99)
[2024-05-03 06:00] VITALS: BMI 28.6
[2024-05-03 07:24] LABS: Hematocrit 36.7 % (39.0-52.0); Hemoglobin 12.7 g/dL (13.0-18.0); Mean Corp Hgb Conc. 34.6 g/dL (33.0-37.0); Mean Corpuscular Hgb 31.4 pg (27.0-31.0); Mean Corpuscular Volume 90.8 fL (80.0-94.0); Mean Platelet Volume 9.4 fL (7.4-10.4); Platelet Count 339 10^3/uL (130-400); Red Blood Cell Count 4.04 10^6/uL (4.70-6.10); Red Cell Dist. Width 13.6 % (11.5-14.5); White Blood Cell Count 10.2 10^3/uL (4.8-10.8)
[2024-05-03 07:30] VITALS: BP 137/59
[2024-05-03 07:32] LABS: APTT 107.2 Sec (23.4-35.0)
[2024-05-03 07:53] LABS: Blood Urea Nitrogen 13 mg/dl (9-20); Calcium 8.2 mg/dl (8.4-10.2); Carbon Dioxide 18 mmol/L (22-30); Chloride 104 mmol/L (98-107); Estimated Creatinine Clearance 110 ml/min; Glucose 129 mg/dl (70-99); Magnesium 2.3 mg/dl (1.6-2.3); Phosphorus 2.6 mg/dl (2.5-4.5); Potassium 3.8 mmol/L (3.5-5.1); Sodium 135 mmol/L (135-145); eGFR > 60.00
--- NOTE | 2024-05-03 09:03 | W.PN.HOSP.TC ---
Today's Communication/Plan
-
see bold
Assessment / Plan
Assessment / Plan
Post-op Ileus - now with NG tube, placed 04/29, continue IVFs, NPO. Abdominal pain improving. Surgical service ok with meds via NG tube. Plan for small bowel follow-through today.
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 Underwent right hemicolectomy 04/[address] Jiang, findings of distended and nonperforated ischemic cecum.
Paroxysmal atrial fibrillation - Continue IV heparin. Resume Eliquis when okay with surgical service and ileus resolved. Increased Toprol XL to 100 mg twice a day for uncontrolled heart rate.
Sepsis - without clear source. No abscess on CT abd/pelvis 04/29. Antibiotics resumed 04/29 by ID, cefepime & metronidazole. Blood cx repeated 04/29, negative so far. Monitor WBC/fever curve
Does have subcutaneous seroma with drainage in the midline, as noted by surgical service.
History of autoimmune hepatitis
Followed at [place]
Last dose of Imuran was in 2017
AST elevation noted
CAD/CABG - last stented in December.
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
On Plavix - still held - resume when okay with surgical service.
On Imdur 60 mg daily, losartan 50 mg daily - still held
Resumed metoprolol, rosuvastatin 20 mg daily
EKG sinus rhythm with nonspecific ST-T changes
DM2 without hyperglycemia -on Januvia as outpatient. Hemoglobin A1c 7.0%. Glucose 149 this am. Recommend diet, exercise and weight loss as this may cure his diabetes. Discussed with patient.
Basal/bolus insulin on hold due to NPO status. Continue corrective scale. Do not anticipate he will need insulin on discharge.
Prolonged QTC -magnesium and potassium normal. Repeat EKG.
Essential Hypertension -blood pressure acceptable on only metoprolol. Holding losartan.
Prostate disease -continue finasteride and tamsulosin.
Hyperlipidemia -continue rosuvastatin.
Obesity due to excess calories -weight loss encouraged.
DVT prophylaxis�heparin drip
Full code
Total time spent to see the patient on the floor, examine the patient, review data and lab results, discuss treatment plan with patient, nursing staff around 50 minutes.
Physical Exam
General: No acute distress
HEENT: Normocephalic, Atraumatic, EOMI, MMM, +NGT
Respiratory: Clear to Auscultation bilaterally
Cardiac: Normal S1/S2, Regular Rate and Rhythm
GI: Soft, appropriately tender, midline incision with rik in place, incisions clean/dry/intact
Extremities: No Clubbing, Cyanosis, or Edema
Neuro: Nonfocal/Grossly Intact
Psych: Calm, Cooperative
Derm: No Visible lesions
Anticipated Discharge: > 48 hours
Subjective/Interval History
-
Date of Service: May 03, 2024
Patient reports intermittent palpitations. He had some nausea. Abdominal pain continues to wax and wane. Had a bowel movement. No fever.
Objective Data
-
Labs:
Laboratory Results
05/03/24 05/03/24
00:38 07:00
WBC 10.2
Hgb 12.7 L
Hct 36.7 L
Plt Count 339
APTT 96.4 H 107.2 H
Sodium 135
Potassium 3.8
Chloride 104
Carbon Dioxide 18 L
BUN 13
Creatinine 0.5 L
Glucose 129 H
Calcium 8.2 L
Vital Signs:
Vital Signs
Temp Pulse Resp BP Pulse Ox
97.8 F 100 18 137/59 93
05/03/24 07:30 05/03/24 07:30 05/03/24 07:30 05/03/24 07:30 05/03/24 07:30
I&O
05/02/24 05/03/24 05/04/24
06:59 06:59 06:59
Intake Total 2380 / 2380 2195 / 2195 350 / 350
Output Total 1410 / 1410 2405 / 2405
Balance 970 / 970 -210 / -210 350 / 350
--- NOTE | 2024-05-03 09:35 | W.PN.CRS1 ---
Today's Communication / Plan
-
SBFT.
Assessment/Plan
-
POD 8.
1. NGT output 1.4 L and a bit of nausea overnight. On other hand, having bowel function and flatus; abdomen actually somewhat soft. ?ileus vs PSBO. Will arrange SBFT today to assess.
2. WBC normal and afebrile. Antibiotics per ID.
3. on heparin gtts. Hold on Eliquis/Plavix for now.
4. no food for 8 days. Asking nutrition for TPN recs just in case.
5. OOB/PT.
Subjective Data
Procedure
04/25/2024- open right colectomy for cecal volvulus
Subjective Data
Date of Service: May 03, 2024
Having occasional loose BMs and flatus. A few bouts nausea overnight. Occasional cramps but otherwise minimal discomfort.
Objective Data
-
Vital Signs
Temp Pulse Resp BP Pulse Ox
97.8 F 100 18 137/59 93
05/03/24 07:30 05/03/24 07:30 05/03/24 07:30 05/03/24 07:30 05/03/24 07:30
Intake & Output
05/02/24 05/03/24 05/04/24
06:59 06:59 06:59
Intake Total 2380 / 2380 2195 / 2195 350 / 350
Output Total 1410 / 1410 2405 / 2405
Balance 970 / 970 -210 / -210 350 / 350
Intake:
Oral fluids 240 / 240 350 / 350
IV fluids (Total) 1650 / 1650 1725 / 1725
IV piggybacks 310 / 310 290 / 290
Amount instilled into GI Tube ( 180 / 180 180 / 180
Total)
[place] Sump 180 / 180 180 / 180
Output:
Gastrointestinal tube output ( 610 / 610 1480 / 1480
Total)
[place] Sump 610 / 610 1480 / 1480
Urine, Voided 800 / 800 925 / 925
Other:
Number of approximated MODERATE 1 1
amounts of urine
Lab Results
05/03/24 07:00
05/03/24 07:00
Physical Exam
-
General: No Acute Distress
Chest: Clear
Cardiovascular: Regular Rate & Rhythm
Abdomen: Soft, Distended (mild), Tender (incisonal ) and Other (not firm)
Extremities: No Calf Tenderness
Incision: Clear, Dry, Intact and No Skin Erythema
--- NOTE | 2024-05-03 09:47 | W.PN.ID1 ---
Date of Service
Date of Service: May 03, 2024
Today's Communication
DC abx's and observe.
ID will sign off.
Assessment / Plan
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
- OR finding of ischemic bowel without perforation.
# fever - resolved
# Leukocytosis - resolved
# Ileus
# Seroma drainage from incision site resolved
- Fever/leukocytosis was due to ileus
- No infectious etiology identified
-Repeat CT s/p: no abscess
- DC empiric cefepime/metronidazole (4)
ID will sign off. Call prn.
#Additional Past Medical History:
DM
CAD s/p CABG/stents
Autoimmune hepatitis off Imuran since 2018
paroxysmal Afib
HTN
BPH
HLD
nephrolithiasis hx lithotripsy
Right RTC repair
left shoulder reverse total arthroplasty
Chief Complaint
-: Fever and Leukocytosis
Subjective / Review of Systems
No abd pain. c/o nausea from po metronidazole.
Vital Signs / Physical Exam
Vital Signs
Vital Signs
Temp Pulse Resp BP Pulse Ox
97.8 F 100 18 137/59 93
05/03/24 07:30 05/03/24 07:30 05/03/24 07:30 05/03/24 07:30 05/03/24 07:30
Physical Exam
Constitutional: No Acute Distress and Comfortable
Head: Other (+NGT)
Eyes: Sclera Anicteric
Cardiovascular: Regular Rate and S1/S2
Pulmonary: Clear
Gastrointestinal: Soft, Non Tender and Decreased Bowel Sounds
Genito-Urinary: Negative CVA Tenderness
Wound: Other (Abdominal incision dry, without erythema)
Objective Data
Lab Data
Lab Results
05/03/24 07:00
05/03/24 07:00
PT 14.5 Sec (11.4-14.6) 04/25/24 12:56
INR 1.15 04/25/24 12:56
APTT 107.2 Sec (23.4-35.0) H 05/03/24 07:00
Estimated Creat Clear 110 ml/min 05/03/24 07:00
Lactic Acid 1.5 mmol/L (0.7-2.0) 04/25/24 04:12
Total Bilirubin 1.1 mg/dl (0.2-1.3) 04/27/24 09:02
AST 28 U/L (17-59) 04/27/24 09:02
ALT 25 U/L (0-50) 04/27/24 09:02
Alkaline Phosphatase 87 U/L (38-126) 04/27/24 09:02
Most recent labs reviewed.
Micro Results:
04/29/24 13:44 Blood Culture - Preliminary
Blood/Venous No Growth in 72 hours- Final report to follow
04/29/24 13:02 Blood Culture - Preliminary
Blood/Venous No Growth in 72 hours- Final report to follow
04/25/24 15:36 Blood Culture - Final
Blood/Venous No Growth - Final Report
04/25/24 06:41 Blood Culture - Final
Blood/Venous No Growth - Final Report
Imaging:
04/29/2024 CT abdomen/pelvis with contrast: Generalized distention of the small bowel measuring up to 4.6 cm. Colon is relatively collapsed. Differential includes small bowel ileus versus obstruction. Please see full dictation for additional
detail.
04/24/2024: CT a/p: Findings suggesting cecal volvulus in the right upper quadrant with moderate colonic distention and fecal material. Mild free fluid in the abdomen and pelvis likely reactive. Findings suggesting a Meckel's diverticulum. No evidence
of inflammation.
[2024-05-03] MEDS: HEPARIN 25000 UNITS/250 ML IV (10:10)
[2024-05-03] MEDS: TOPROL XL 100 MG PO ×2 (10:20→21:21)
[2024-05-03] MEDS: ASPIR LOW (ENTERIC COATED) 81 MG PO (10:20)
[2024-05-03] MEDS: CRESTOR 20 MG PO (10:20)
[2024-05-03] MEDS: FLOMAX 0.400000000000000022 MG PO ×2 (10:21→21:20)
[2024-05-03] MEDS: NSS (PRESERVATIVE FREE) 10 ML IV (10:21)
[2024-05-03] MEDS: PROSCAR 5 MG PO (10:21)
[2024-05-03] MEDS: PROTONIX IV 40 MG IV (10:21)
[2024-05-03] MEDS: ZOFRAN 4 MG IV (10:23)
--- NOTE | 2024-05-03 11:12 | W.PN.CARDCBS ---
Addendum entered and electronically signed by Kaden Rasmussen MD 05/03/24 12:44:
I saw and examined the patient.
The HEARING CONSULTANT or PA's note was reviewed and I agree with the note.
Comment: General: Well developed, well nourished in NAD.
Neck: Supple, no JVD, HJR, carotids +2 B/L, no bruits bilaterally.
Heart: Non displaced PMI, RRR, no murmurs, No S3, S4, no rubs.
Lungs: Scattered rhonchi
Extremities: No clubbing, cyanosis or edema bilaterally.
Neuro: Grossly nonfocal, awake, alert and oriented x3.
Patient stable from cardiology viewpoint. Continue IV heparin until cleared to restart Eliquis. Also needs to go back on Plavix status post stent in December 2023. Discussed with patient and son at bedside
Original Note:
Today's Communication / Plan
-
Continue Toprol, IV heparin, aspirin
For small bowel follow-through today
Follow volume status
Impression / Plan
-
Primary care physician: Bora Garcia
Outpatient summer analyst: Dr. Gael Mason at [facility] [phone]
Impression:
Presents 04/25/2024 with acute abdominal pain x 1 day
Acute cecal volvulus
s/p emergent right hemicolectomy 04/25/2024
Fever
Leukocytosis
Paroxysmal atrial fibrillation
recurrence of Afib 04/27/24
Chronic anticoagulation on Eliquis
CAD
s/p CABG at [place] 2015
s/p PCI at [facility] 12/2023
DM
Autoimmune hepatitis off Imuran since 2018
HTN
BPH
HLD
Chronic low back pain
nephrolithiasis hx lithotripsy
Right RTC repair
left shoulder reverse total arthroplasty
Plan:
-He is for small bowel follow-through today. Continue postop care per colorectal
-In rate controlled A-fib/flutter upon review of telemetry. Continue Toprol
-Remains on IV heparin and aspirin. Eventual transition back to Eliquis and Plavix when okay from surgical standpoint. He is status post PCI of bypass graft 12/2023 at [facility]
-Could consider for eventual cardioversion as OP
-Receiving IV fluid. Does not appear to be grossly volume overloaded. Continue to monitor volume status
HPI: Patient came [facility] very early this morning with abdominal pain and was admitted with acute cecal volvulus and cardiology has been consulted for possible post-op atrial fibrillation. Patient has a past medical history significant for coronary
artery disease status post CABG and stents, hypertension, hyperlipidemia, paroxysmal atrial fibrillation on chronic anticoagulation with Eliquis. Patient was found to have acute cecal volvulus on imaging. He was also noted to have fever, Tmax
101.4. Patient was taken emergently to the OR and underwent open right colectomy on 04/25/2024. Patient says Afib was diagnosed after he wore a week long heart monitor following PCI in 12/2023. He was noted to have Afib and was started on Eliquis at
that time. He was continued on Plavix as well, but aspirin was stopped when Eliuquis was added. Last dose of Eliquis was 04/24/24 AM. Given he was on anticoagulation he was given Kcentra. Patient denies palpitations post-op. Tele reviewed and it
appears to be baseline artifact on ECG.
Progress Note - Literacy Consultant
Subjective
Date of Service: May 03, 2024
Denies chest pain, shortness of breath, palpitations
Objective
Labs:
05/03/24 07:00
05/03/24 07:00
Labs
Hgb 12.7 g/dL (13.0-18.0) L 05/03/24 07:00
Hct 36.7 % (39.0-52.0) L 05/03/24 07:00
Plt Count 339 10^3/uL (130-400) 05/03/24 07:00
PT 14.5 Sec (11.4-14.6) 04/25/24 12:56
INR 1.15 04/25/24 12:56
APTT 107.2 Sec (23.4-35.0) H 05/03/24 07:00
Sodium 135 mmol/L (135-145) 05/03/24 07:00
Potassium 3.8 mmol/L (3.5-5.1) 05/03/24 07:00
BUN 13 mg/dl (9-20) 05/03/24 07:00
Creatinine 0.5 mg/dL (0.7-1.3) L 05/03/24 07:00
Glucose 129 mg/dl (70-99) H 05/03/24 07:00
Vital Signs and I&O:
Vital Signs
Temp Pulse Resp BP Pulse Ox
97.8 F 100 18 137/59 93
05/03/24 07:30 05/03/24 07:30 05/03/24 07:30 05/03/24 07:30 05/03/24 07:30
Vital Signs
Temp Pulse Resp BP Pulse Ox
97.8 F 100 18 137/59 93
05/03/24 07:30 05/03/24 07:30 05/03/24 07:30 05/03/24 07:30 05/03/24 07:30
Intake & Output
05/01/24 05/02/24 05/03/24 05/04/24
07:59 07:59 07:59 07:59
Intake Total 2498 / 2498 2380 / 2380 2545 / 2545
Output Total 1300 / 1300 1410 / 1410 2405 / 2405
Balance 1198 / 1198 970 / 970 140 / 140
Physical Exam
Physical Exam
GEN: No distress, awake, alert, oriented x3
HEENT: supple, anicteric, mmm, EOMI. NGT in place
LUNGS: CTA bilaterally, no wheezes/rales
CV: Irreg, S1/S2, no murmur
EXT: No cyanosis, clubbing, edema
NEURO: Gross non-focal
SKIN: Warm, pink, dry. No rash
[2024-05-03 11:18] VITALS: BP 123/72
[2024-05-03 11:37] LABS: Glucose - Point of Care 126 mg/dl (70-99)
[2024-05-03] MEDS: FLAGYL 500 MG IV (12:04)
[2024-05-03 16:41] VITALS: BP 134/79
[2024-05-03 18:04] LABS: Glucose - Point of Care 132 mg/dl (70-99)
[2024-05-03 20:06] VITALS: BP 145/76
[2024-05-03] MEDS: MELATONIN 5 MG PO (21:20)
[2024-05-03] MEDS: ROXICODONE 5 MG PO (21:20)
[2024-05-03] MEDS: PAXIL 20 MG PO (21:21)
[2024-05-03] MEDS: REFRESH CELLUVISC GEL 1 DROPS OPHTH (21:23)
[2024-05-03 23:28] VITALS: BP 120/59
[2024-05-03 23:44] LABS: Glucose - Point of Care 125 mg/dl (70-99)
[2024-05-04] VITALS (7 sets, daily range): BP systolic 100–149; BP diastolic 48–72; PULSE 97; BMI 27.9
[2024-05-04] MEDS: NOVOLOG FLEXPEN-LOW RESISTANCE SC ×4 (00:04→17:16)
[2024-05-04] MEDS: HEPARIN 25000 UNITS/250 ML IV ×2 (00:16→15:11)
--- NOTE | 2024-05-04 03:46 | DOWNTIME ---
There was a [employer] Downtime on 05/04/2024 from 0100 to 05/04/2024 at 0337. Downtime documentation of patient's care, including medication administrations, has been reconciled in the electronic record per guidelines. Refer to the
patient's paper chart under the miscellaneous tab to see printed paper medication records and downtime forms.
[2024-05-04 05:18] LABS: Glucose - Point of Care 125 mg/dl (70-99)
[2024-05-04] MEDS: MAXIPIME 1000 MG IV (05:53)
[2024-05-04] MEDS: STERILE WATER FOR INJECTION 10 ML IV (05:54)
[2024-05-04 08:15] LABS: Hematocrit 34.9 % (39.0-52.0); Hemoglobin 12.2 g/dL (13.0-18.0); Mean Corpuscular Hgb 31.2 pg (27.0-31.0); Mean Corpuscular Volume 89.3 fL (80.0-94.0); Mean Platelet Volume 9.2 fL (7.4-10.4); Platelet Count 374 10^3/uL (130-400); Red Blood Cell Count 3.91 10^6/uL (4.70-6.10); Red Cell Dist. Width 14.2 % (11.5-14.5); White Blood Cell Count 10.7 10^3/uL (4.8-10.8)
[2024-05-04 08:28] LABS: APTT 126.1 Sec (23.4-35.0)
[2024-05-04] MEDS: ASPIR LOW (ENTERIC COATED) 81 MG PO (08:54)
[2024-05-04] MEDS: FLOMAX 0.400000000000000022 MG PO ×2 (08:54→19:38)
[2024-05-04] MEDS: CRESTOR 20 MG PO (08:54)
[2024-05-04] MEDS: TOPROL XL 100 MG PO ×2 (08:54→19:38)
[2024-05-04] MEDS: PROSCAR 5 MG PO (08:54)
--- NOTE | 2024-05-04 08:54 | W.PN.HOSP.TC ---
Addendum entered and electronically signed by Chong Handley MD 05/04/24 17:56:
Fever and leukocytosis present upon admission - without clear source. Sepsis ruled out.
Original Note:
Today's Communication/Plan
-
see bold
Assessment / Plan
Assessment / Plan
Post-op Ileus - now with NG tube, placed 04/29, continue IVFs, NPO. Abdominal pain improving. Surgical service ok with meds via NG tube. 05/03 small bowel follow-through shows resolving ileus versus partial SBO�no discrete transition point
identified. NG tube clamped today. Dietitian consulted for TPN tomorrow if patient is not eating.
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 Underwent right hemicolectomy 04/[address] Jiang, findings of distended and nonperforated ischemic cecum.
Paroxysmal atrial fibrillation - Continue IV heparin. Resume Eliquis when okay with surgical service and ileus resolved. Increased Toprol XL to 100 mg twice a day for uncontrolled heart rate.
Fever and leukocytosis- without clear source. No abscess on CT abd/pelvis 04/29. Blood cx repeated 04/29, negative so far. On cefepime and Flagyl from 04/29 through 05/03 per ID. Monitor WBC/fever curve. Fever and leukocytosis resolved. ID signed
off.
Does have subcutaneous seroma with drainage in the midline, as noted by surgical service.
History of autoimmune hepatitis
Followed at [place]
Last dose of Imuran was in 2017
AST elevation noted
CAD/CABG - last stented in December.
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
On Plavix - still held - resume when okay with surgical service.
On Imdur 60 mg daily, losartan 50 mg daily - still held
Resumed metoprolol, rosuvastatin 20 mg daily
EKG sinus rhythm with nonspecific ST-T changes
DM2 without hyperglycemia -on Januvia as outpatient. Hemoglobin A1c 7.0%. Glucose 149 this am. Recommend diet, exercise and weight loss as this may cure his diabetes. Discussed with patient.
Basal/bolus insulin on hold due to NPO status. Continue corrective scale. Do not anticipate he will need insulin on discharge.
Prolonged QTC -magnesium and potassium normal. Repeat EKG 05/03 shows improved QTc. Would continue avoiding Zofran and other QTc prolonging agents.
Essential Hypertension -blood pressure acceptable on only metoprolol. Holding losartan.
Prostate disease -continue finasteride and tamsulosin.
Hyperlipidemia -continue rosuvastatin.
Obesity due to excess calories -weight loss encouraged.
DVT prophylaxis�heparin drip
Full code
Updated son at bedside 05/04
Physical Exam
General: No acute distress
HEENT: Normocephalic, Atraumatic, EOMI, MMM, +NGT
Respiratory: Clear to Auscultation bilaterally
Cardiac: Normal S1/S2, Regular Rate and Rhythm
GI: Soft, appropriately tender, midline incision with rik in place, incisions clean/dry/intact
Extremities: No Clubbing, Cyanosis, or Edema
Neuro: Nonfocal/Grossly Intact
Psych: Calm, Cooperative
Derm: No Visible lesions
Anticipated Discharge: > 48 hours
Subjective/Interval History
-
Date of Service: May 04, 2024
Patient feels better today. Yesterday, he had multiple bowel movements from the contrast. No fever, no vomiting.
Objective Data
-
Labs:
Laboratory Results
05/04/24
07:32
WBC 10.7
Hgb 12.2 L
Hct 34.9 L
Plt Count 374
APTT 126.1 H
Sodium Pending
Potassium Pending
Chloride Pending
Carbon Dioxide Pending
BUN Pending
Creatinine Pending
Glucose Pending
Calcium Pending
Total Bilirubin Pending
AST Pending
ALT Pending
Alkaline Phosphatase Pending
Vital Signs:
Vital Signs
Temp Pulse Resp BP Pulse Ox
98.6 F 79 17 100/61 97
05/04/24 07:34 05/04/24 07:34 05/04/24 07:34 05/04/24 07:34 05/04/24 07:34
I&O
05/03/24 05/04/24 05/05/24
06:59 06:59 06:59
Intake Total 2195 / 2195 2444 / 2444
Output Total 2405 / 2405 1950 / 1950
Balance -210 / -210 494 / 494
[2024-05-04] MEDS: PROTONIX IV 40 MG IV (08:55)
[2024-05-04] MEDS: NSS (PRESERVATIVE FREE) 10 ML IV (08:55)
[2024-05-04 08:59] LABS: ALT (SGPT) 20 U/L (0-50); AST (SGOT) 27 U/L (17-59); Albumin 2.7 g/dl (3.5-5.0); Alkaline Phosphatase 72 U/L (38-126); Blood Urea Nitrogen 13 mg/dl (9-20); Calcium 8.2 mg/dl (8.4-10.2); Carbon Dioxide 19 mmol/L (22-30); Chloride 106 mmol/L (98-107); Estimated Creatinine Clearance 110 ml/min; Glucose 124 mg/dl (70-99); Potassium 3.8 mmol/L (3.5-5.1); Sodium 137 mmol/L (135-145); Total Bilirubin 0.4 mg/dl (0.2-1.3); Total Protein 5.2 g/dl (6.3-8.2); eGFR > 60.00
--- NOTE | 2024-05-04 09:36 | W.PN.CRS1 ---
Today's Communication / Plan
-
NGT clamping trial
Assessment/Plan
-
POD 9.
1. NGT output 1150 (very thin) and no nausea overnight. His bowels are functioning. Small bowel series yesterday resolving ileus versus low-grade partial sbo (no discrete transition point identified).
2. WBC normal and afebrile. Antibiotics d/c'd.
3. on heparin gtts. Hold on Eliquis/Plavix until taking PO.
4. no food for 9 days. Begin TPN tomorrow if unable to eat.
5. OOB/PT.
Subjective Data
Procedure
04/25/2024- open right colectomy for cecal volvulus
Subjective Data
Date of Service: May 04, 2024
Following the small bowel follow-through yesterday he states he has had a lot of liquid stool and flatus. Some incontinence. He denies any pain or nausea.
Objective Data
-
Vital Signs
Temp Pulse Resp BP Pulse Ox
98.6 F 79 17 100/61 97
05/04/24 07:34 05/04/24 07:34 05/04/24 07:34 05/04/24 07:34 05/04/24 07:34
Intake & Output
05/03/24 05/04/24 05/05/24
06:59 06:59 06:59
Intake Total 2195 / 2195 2444 / 2444
Output Total 2405 / 2405 1950 / 1950
Balance -210 / -210 494 / 494
Intake:
Oral fluids 350 / 350
IV fluids (Total) 1725 / 1725 1800 / 1800
IV piggybacks 290 / 290 204 / 204
Amount instilled into GI Tube ( 180 / 180 90 / 90
Total)
Fajardo Sump 180 / 180 90 / 90
Output:
Gastrointestinal tube output ( 1480 / 1480 1150 / 1150
Total)
Fajardo Sump 1480 / 1480 1150 / 1150
Urine, Voided 925 / 925 800 / 800
Other:
Number of approximated MODERATE 1
amounts of urine
Lab Results
05/04/24 07:32
05/04/24 07:32
Physical Exam
-
General: No Acute Distress
Abdomen: Soft, Non Distended and Non Tender
Extremities: No Calf Tenderness
Data Reviewed
-
Diagnostic Radiology: Image Reviewed and Report Reviewed
--- NOTE | 2024-05-04 11:03 | CM ---
Reviewed the chart notes and spoke with the patient and his son at the bedside. The patient's NGT is clamped. The patient anticipates being discharged to his son's home for recovery. CM continues to be available to patient/family and is
monitoring medical plan for needs at discharge.
Plan: Discharge to home when medically stable. No needs anticipated.
[2024-05-04 12:02] LABS: Glucose - Point of Care 141 mg/dl (70-99)
[2024-05-04 15:20] LABS: APTT 114.8 Sec (23.4-35.0)
--- NOTE | 2024-05-04 15:52 | PN.CDI ---
CDI
- -
CDI:
Physician Documentation Request
Admit Date: 04/25/24 04:41
Dear Doctor Do,
Please review the following and provide your response in the progress notes.
Clinical Indicators:
- 04/25-04/29 'Transient fever...rising white blood cell count concerning...Not on antibiotics currently'
- 04/30-05/03 'Sepsis -without clear source'
- On admission : WBC 13.8, HR, T Max 101.4, RR 20's
- IV abx Aztrenam, Flagyl, Cefepime
Please clarify the following:
_Sepsis_ was present on admission
_Sepsis_ was not present on admission
Unable to determine
Use of terms such as suspected, likely, concern for, or probable (associated with a specific diagnosis that is being evaluated, monitored, or treated as if it exists) are acceptable and can be coded in the inpatient setting, when documented at the
time of discharge.
Thank you,
Parker Zee RN
CDI Specialist
Please use your independent medical judgment in providing your response.
--- NOTE | 2024-05-04 16:27 | W.PN.CARDCBS ---
Today's Communication / Plan
-
Transition from aspirin/heparin to Plavix/Eliquis when able to reliably take p.o. and okay from surgery standpoint
Impression / Plan
-
Primary care physician: Bora Garcia
Outpatient flute grinder: Dr. Gael Mason at [facility] [phone]
Impression:
Presents 04/25/2024 with acute abdominal pain x 1 day
Acute cecal volvulus
s/p emergent right hemicolectomy 04/25/2024
Fever
Leukocytosis
Paroxysmal atrial fibrillation
recurrence of Afib 04/27/24
Chronic anticoagulation on Eliquis
CAD
s/p CABG at [place] 2015
s/p PCI at [facility] 12/2023
DM
Autoimmune hepatitis off Imuran since 2017
HTN
BPH
HLD
Chronic low back pain
nephrolithiasis hx lithotripsy
Right RTC repair
left shoulder reverse total arthroplasty
Plan:
-Not reliably taking p.o., however NG tube was clamped this morning
-In rate controlled A-fib/flutter upon review of telemetry. Continue Toprol
-Remains on IV heparin and aspirin. Eventual transition back to Eliquis and Plavix when okay from surgical standpoint. He is status post PCI of bypass graft 12/2023 at [facility]
-Could consider for eventual cardioversion as OP
-Receiving IV fluid. Does not appear to be grossly volume overloaded. Continue to monitor volume status
HPI: Patient came to [facility] very early this morning with abdominal pain and was admitted with acute cecal volvulus and cardiology has been consulted for possible post-op atrial fibrillation. Patient has a past medical history significant for coronary
artery disease status post CABG and stents, hypertension, hyperlipidemia, paroxysmal atrial fibrillation on chronic anticoagulation with Eliquis. Patient was found to have acute cecal volvulus on imaging. He was also noted to have fever, Tmax
101.4. Patient was taken emergently to the OR and underwent open right colectomy on 04/25/2024. Patient says Afib was diagnosed after he wore a week long heart monitor following PCI in 12/2023. He was noted to have Afib and was started on Eliquis at
that time. He was continued on Plavix as well, but aspirin was stopped when Eliuquis was added. Last dose of Eliquis was 04/24/24 AM. Given he was on anticoagulation he was given Kcentra. Patient denies palpitations post-op. Tele reviewed and it
appears to be baseline artifact on ECG.
Progress Note - Hay Rake Operator
Subjective
Date of Service: May 04, 2024
No acute overnight events. Tells me that his abdomen is less distended. No chest pain, shortness of breath or palpitations.
Objective
Labs:
05/04/24 07:32
05/04/24 07:32
Labs
Hgb 12.2 g/dL (13.0-18.0) L 05/04/24 07:32
Hct 34.9 % (39.0-52.0) L 05/04/24 07:32
Plt Count 374 10^3/uL (130-400) 05/04/24 07:32
PT 14.5 Sec (11.4-14.6) 04/25/24 12:56
INR 1.15 04/25/24 12:56
APTT 114.8 Sec (23.4-35.0) H 05/04/24 14:59
Sodium 137 mmol/L (135-145) 05/04/24 07:32
Potassium 3.8 mmol/L (3.5-5.1) 05/04/24 07:32
BUN 13 mg/dl (9-20) 05/04/24 07:32
Creatinine 0.6 mg/dL (0.7-1.3) L 05/04/24 07:32
Glucose 124 mg/dl (70-99) H 05/04/24 07:32
Vital Signs and I&O:
Vital Signs
Temp Pulse Resp BP Pulse Ox
98.6 F 83 19 121/54 97
05/04/24 15:31 05/04/24 15:31 05/04/24 15:31 05/04/24 15:31 05/04/24 15:31
Vital Signs
Temp Pulse Resp BP Pulse Ox
98.6 F 83 19 121/54 97
05/04/24 15:31 05/04/24 15:31 05/04/24 15:31 05/04/24 15:31 05/04/24 15:31
Intake & Output
05/02/24 05/03/24 05/04/24 05/05/24
06:59 06:59 06:59 06:59
Intake Total 2380 / 2380 2195 / 2195 2444 / 2444
Output Total 1410 / 1410 2405 / 2405 1950 / 1950
Balance 970 / 970 -210 / -210 494 / 494
Physical Exam
Physical Exam
Gen: NAD, AAOx3
HEENT: NC/AT, sclera anicteric, NG tube in place
Neck: No JVD
CV: Irregularly irregular
Lungs: CTAB
Abd: ND
Ext: No LE edema
Skin: Warm, dry
Neuro: Non-focal
[2024-05-04 17:15] LABS: Glucose - Point of Care 141 mg/dl (70-99)
[2024-05-04 21:02] LABS: Glucose - Point of Care 119 mg/dl (70-99)
[2024-05-04 21:12] LABS: APTT 118.9 Sec (23.4-35.0)
[2024-05-04] MEDS: ROXICODONE 5 MG PO (22:01)
[2024-05-04] MEDS: PAXIL 20 MG PO (22:01)
[2024-05-04] MEDS: MELATONIN 5 MG PO (22:02)
[2024-05-04] MEDS: NORMOSOL-R 1000 IV (23:00)
[2024-05-05] MEDS: NOVOLOG FLEXPEN-LOW RESISTANCE SC ×2 (00:40→06:08)
[2024-05-05 00:51] LABS: Glucose - Point of Care 122 mg/dl (70-99)
[2024-05-05 04:10] VITALS: BP 123/61
[2024-05-05 04:38] LABS: Hematocrit 35.7 % (39.0-52.0); Mean Corp Hgb Conc. 33.6 g/dL (33.0-37.0); Mean Corpuscular Volume 92.2 fL (80.0-94.0); Mean Platelet Volume 9.1 fL (7.4-10.4); Platelet Count 393 10^3/uL (130-400); Red Blood Cell Count 3.87 10^6/uL (4.70-6.10); Red Cell Dist. Width 13.9 % (11.5-14.5); White Blood Cell Count 11.1 10^3/uL (4.8-10.8)
[2024-05-05 04:56] LABS: APTT 108.1 Sec (23.4-35.0)
[2024-05-05 05:04] LABS: Blood Urea Nitrogen 15 mg/dl (9-20); Calcium 8.4 mg/dl (8.4-10.2); Carbon Dioxide 21 mmol/L (22-30); Chloride 103 mmol/L (98-107); Estimated Creatinine Clearance 110 ml/min; Glucose 112 mg/dl (70-99); Magnesium 2.2 mg/dl (1.6-2.3); Phosphorus 2.9 mg/dl (2.5-4.5); Potassium 3.8 mmol/L (3.5-5.1); Sodium 136 mmol/L (135-145); eGFR > 60.00
[2024-05-05 06:00] VITALS: BMI 28.7
[2024-05-05 06:03] LABS: Glucose - Point of Care 122 mg/dl (70-99)
[2024-05-05 07:25] VITALS: BP 102/48
--- NOTE | 2024-05-05 07:42 | W.PN.CARDCBS ---
Addendum entered and electronically signed by Gabriella Quintanilla DO 05/05/24 13:50:
I saw and examined the patient.
The Electrical Accessories Assembler's note was reviewed and I agree with the note.
Comment: Patient seen and examined. Feeling stronger and ambulating in unit with family and PT. No further wound drainage and tolerating clears. Denies palpitations, SOB, edema, CP
GEN: No distress, awake, alert, oriented x3
HEENT: mmm
LUNGS: CTA bilaterally, no wheezes/rales
CV: Irreg, S1/S2, no murmur
GI: soft. Incision intact
EXT: No edema
NEURO: Gross non-focal
Plan:
-Presents 04/25/2024 with acute cecal volvulus.
-Status post emergent open right hemicolectomy 04/25/2024, patient given Kcentra prior to emergent right hemicolectomy
-Had IV Lasix 20mg x2 doses [04/28-] for post op fluid retention; no evidence of overt volume overload and no need for diuretics
-Improving post op and tolerating diet
-Continue hep drip; hold Xarelto and Plavix for now
-plan to transition back to eliquis/plavix in AM per surgery recs
-History of PAF currently in AF
-Continue IV heparin gtt and monitor tele
-Resume Eliquis when cleared by surgery, anticipate 05/06
-Continue metoprolol succinate 100mg BID
-Discuss eventual rhythm control options and ablation with his outpatient oncology nurse once he is recovered from surgery
-Hb stable, 12
-CAD s/p CABG and PCI 12/2023
-Stable without anginal complaints
-Would like to resume Plavix as soon as possible given PCI 12/2023
-Continue statin
-Imdur held for BP- would continue to hold and reassess with his outpatient oncology nurse
Will hopefully transition to Eliquis 5mg BID and stop IV heparin gtt 05/06 if ok with surgery
Will hopefully restart Plavix 05/06/if ok with surgery
Will sign off, recall if needed
Original Note:
Today's Communication / Plan
-
plan to transition back to eliquis/plavix in AM per surgery recs
will arrange OP cardiac follow up
Impression / Plan
-
Primary care physician: Bora Garcia
Outpatient oncology nurse: Dr. Gael Mason at [facility] [phone]
Impression:
Presents 04/25/2024 with acute abdominal pain x 1 day
Acute cecal volvulus
s/p emergent right hemicolectomy 04/25/2024
Fever
Leukocytosis
Paroxysmal atrial fibrillation
recurrence of Afib 04/27/24
Chronic anticoagulation on Eliquis
CAD
s/p CABG at [place] 2015
s/p PCI at [facility] 12/2023
DM
Autoimmune hepatitis off Imuran since 2017
HTN
BPH
HLD
Chronic low back pain
nephrolithiasis hx lithotripsy
Right RTC repair
left shoulder reverse total arthroplasty
Plan:
-NGT clamped and subsequently removed yesterday. tolerating clears
-remains on IV heparin and asa. d/w colorectal surgery. plan for transition back to eliquis/plavix in AM
-HRs well controlled in afib on review of tele overnight. continue toprol
-Could consider for eventual cardioversion as OP
-no evidence of overt volume overload
-will arrange OP cardiac follow up
-d/w nursing
HPI: Patient came to [facility] very early this morning with abdominal pain and was admitted with acute cecal volvulus and cardiology has been consulted for possible post-op atrial fibrillation. Patient has a past medical history significant for coronary
artery disease status post CABG and stents, hypertension, hyperlipidemia, paroxysmal atrial fibrillation on chronic anticoagulation with Eliquis. Patient was found to have acute cecal volvulus on imaging. He was also noted to have fever, Tmax
101.4. Patient was taken emergently to the OR and underwent open right colectomy on 04/25/2024. Patient says Afib was diagnosed after he wore a week long heart monitor following PCI in 12/2023. He was noted to have Afib and was started on Eliquis at
that time. He was continued on Plavix as well, but aspirin was stopped when Eliuquis was added. Last dose of Eliquis was 04/24/24 AM. Given he was on anticoagulation he was given Kcentra. Patient denies palpitations post-op. Tele reviewed and it
appears to be baseline artifact on ECG.
Progress Note - Nutrition Tech
Subjective
Date of Service: May 05, 2024
Tolerating clears. No palpitations, shortness of breath
Objective
Labs:
05/05/24 04:17
05/05/24 04:17
Labs
Hgb 12.0 g/dL (13.0-18.0) L 05/05/24 04:17
Hct 35.7 % (39.0-52.0) L 05/05/24 04:17
Plt Count 393 10^3/uL (130-400) 05/05/24 04:17
PT 14.5 Sec (11.4-14.6) 04/25/24 12:56
INR 1.15 04/25/24 12:56
APTT 108.1 Sec (23.4-35.0) H 05/05/24 04:17
Sodium 136 mmol/L (135-145) 05/05/24 04:17
Potassium 3.8 mmol/L (3.5-5.1) 05/05/24 04:17
BUN 15 mg/dl (9-20) 05/05/24 04:17
Creatinine 0.5 mg/dL (0.7-1.3) L 05/05/24 04:17
Glucose 112 mg/dl (70-99) H 05/05/24 04:17
Vital Signs and I&O:
Vital Signs
Temp Pulse Resp BP Pulse Ox
98.6 F 72 20 123/61 98
05/05/24 04:10 05/05/24 04:10 05/05/24 04:10 05/05/24 04:10 05/05/24 04:10
Vital Signs
Temp Pulse Resp BP Pulse Ox
98.6 F 72 20 123/61 98
05/05/24 04:10 05/05/24 04:10 05/05/24 04:10 05/05/24 04:10 05/05/24 04:10
Intake & Output
05/02/24 05/03/24 05/04/24 05/05/24
07:59 07:59 07:59 07:59
Intake Total 2380 / 2380 2545 / 2545 2094 / 2094 2940 / 2940
Output Total 1410 / 1410 2405 / 2405 1950 / 1950 700 / 700
Balance 970 / 970 140 / 140 144 / 144 2240 / 2240
Physical Exam
Physical Exam
GEN: No distress, awake, alert, oriented x3
HEENT: supple, anicteric, mmm, EOMI.
LUNGS: CTA bilaterally, no wheezes/rales
CV: Irreg, S1/S2, no murmur
EXT: No cyanosis, clubbing, edema
NEURO: Gross non-focal
SKIN: Warm, pink, dry. No rash
[2024-05-05] MEDS: TOPROL XL 100 MG PO ×2 (08:04→20:35)
[2024-05-05] MEDS: ASPIR LOW (ENTERIC COATED) 81 MG PO (08:04)
[2024-05-05] MEDS: CRESTOR 20 MG PO (08:04)
[2024-05-05] MEDS: NSS (PRESERVATIVE FREE) 10 ML IV (08:05)
[2024-05-05] MEDS: PROSCAR 5 MG PO (08:05)
[2024-05-05] MEDS: PROTONIX IV 40 MG IV (08:05)
[2024-05-05] MEDS: FLOMAX 0.400000000000000022 MG PO ×2 (08:05→20:35)
--- NOTE | 2024-05-05 08:10 | W.PN.CRS1 ---
Addendum entered and electronically signed by Kenrick Jiang MD 05/05/24 15:01:
Patient's son updated via phone conversation.
Original Note:
Today's Communication / Plan
-
Fulls.
OOB.
Assessment/Plan
-
POD 10.
1. NGT out and tolerating clears with BMs and no nausea/emesis. Advance to fulls. Hold on TPN option.
2. vitals ok. WBC a bit up to 11.5. Off antibiotics. Will watch.
3. on heparin gtts. Hold on Eliquis/Plavix until taking PO better--hopefully resume them tomorrow.
4. OOB/PT.
Subjective Data
Procedure
04/25/2024- open right colectomy for cecal volvulus
Subjective Data
Date of Service: May 05, 2024
NGT out since yesterday.
Denies N/V. On clears.
BMs still loose.
Still occasional cramping.
Objective Data
-
Vital Signs
Temp Pulse Resp BP Pulse Ox
98.5 F 69 18 102/48 93
05/05/24 07:25 05/05/24 08:04 05/05/24 07:25 05/05/24 08:04 05/05/24 07:25
Intake & Output
05/04/24 05/05/24 05/06/24
06:59 06:59 06:59
Intake Total 2444 / 2444 2940 / 2940
Output Total 1950 / 1950 700 / 700
Balance 494 / 494 2240 / 2240
Intake:
Oral fluids 350 / 350 1140 / 1140
IV fluids (Total) 1800 / 1800 1800 / 1800
IV piggybacks 204 / 204
Amount instilled into GI Tube ( 90 / 90
Total)
Edgar Sump /
Output:
Gastrointestinal tube output ( 1150 / 1150
Total)
Edgar Sump 1150 / 1150
Urine, Voided 800 / 800 700 / 700
Other:
Number of approximated MODERATE 2
amounts of urine
Number of approximated LARGE 1
amounts of urine
Lab Results
05/05/24 04:17
05/05/24 04:17
Physical Exam
-
General: No Acute Distress
Chest: Clear
Cardiovascular: Regular Rate & Rhythm
Abdomen: Soft, Distended (mild) and Tender (expected incisional)
Extremities: No Calf Tenderness
Incision: Clear, Dry, Intact and No Skin Erythema
[2024-05-05] MEDS: HEPARIN 25000 UNITS/250 ML IV (08:11)
[2024-05-05] MEDS: NORMOSOL-R 1000 IV (08:18)
--- NOTE | 2024-05-05 08:36 | W.PN.HOSP.TC ---
Today's Communication/Plan
-
see bold
Assessment / Plan
Assessment / Plan
Post-op Ileus - 05/03 small bowel follow-through shows resolving ileus versus partial SBO�no discrete transition point identified. Resolving, status post NG tube, removed 05/04. Advance to full liquids today as per CRS.
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 Underwent right hemicolectomy 04/25/[address] Jiang, findings of distended and nonperforated ischemic cecum.
Paroxysmal atrial fibrillation - Continue IV heparin. Resume Eliquis when okay with CRS, anticipate 05/06. Increased Toprol XL to 100 mg twice a day for uncontrolled heart rate.
Fever and leukocytosis- Sepsis ruled out. No abscess on CT abd/pelvis 04/29. Blood cx repeated 04/29, negative so far. On cefepime and Flagyl from 04/29 through 05/03 per ID. Fever and leukocytosis resolved. ID suspects due to ileus. They have
signed off. Monitor WBC/fever curve.
Does have subcutaneous seroma with drainage in the midline, as noted by surgical service.
History of autoimmune hepatitis
Followed at [place]
Last dose of Imuran was in 2017
AST elevation noted
CAD/CABG - last stented in December.
Follows with assistant professor of biochemistry at [place]
On Plavix - still held - resume when okay with CRS.
On Imdur 60 mg daily, losartan 50 mg daily - still held due to soft BP
Resumed metoprolol, rosuvastatin 20 mg daily
EKG sinus rhythm with nonspecific ST-T changes
DM2 without hyperglycemia -on Januvia as outpatient. Hemoglobin A1c 7.0%. Continue sliding scale insulin.
Prolonged QTC -magnesium and potassium normal. Repeat EKG 05/03 shows improved QTc. Would continue avoiding Zofran and other QTc prolonging agents.
Essential Hypertension -blood pressure acceptable on only metoprolol. Holding losartan.
Prostate disease -continue finasteride and tamsulosin.
Hyperlipidemia -continue rosuvastatin.
Obesity due to excess calories -weight loss encouraged.
DVT prophylaxis�heparin drip
Full code
Updated son at bedside 05/04
Total time spent to see the patient on the floor, examine the patient, review data and lab results, discuss treatment plan with patient, nursing staff around 38 minutes.
Physical Exam
General: No acute distress
HEENT: Normocephalic, Atraumatic, EOMI, MMM
Respiratory: Clear to Auscultation bilaterally
Cardiac: Normal S1/S2, Regular Rate and Rhythm
GI: Soft, appropriately tender, midline incision with rik in place, incisions clean/dry/intact
Extremities: No Clubbing, Cyanosis, or Edema
Neuro: Nonfocal/Grossly Intact
Psych: Calm, Cooperative
Derm: No Visible lesions
Anticipated Discharge: 24 - 48 hours
Subjective/Interval History
-
Date of Service: May 04, 2024
Patient tolerated his clear liquid diet yesterday. He continues to have bowel movements. No nausea, no vomiting. He has abdominal discomfort, denies overt pain. No fever.
Objective Data
-
Labs:
Laboratory Results
05/04/24 05/04/24 05/04/24
07:32 14:59 21:00
WBC 10.7
Hgb 12.2 L
Hct 34.9 L
Plt Count 374
APTT 126.1 H 114.8 H Pending
Sodium 137
Potassium 3.8
Chloride 106
Carbon Dioxide 19 L
BUN 13
Creatinine 0.6 L
Glucose 124 H
Calcium 8.2 L
Total Bilirubin 0.4
AST 27
ALT 20
Alkaline Phosphatase 72
Vital Signs:
Vital Signs
Temp Pulse Resp BP Pulse Ox
98.6 F 83 19 121/54 97
05/04/24 15:31 05/04/24 15:31 05/04/24 15:31 05/04/24 15:31 05/04/24 15:31
I&O
05/03/24 05/04/24 05/05/24
06:59 06:59 06:59
Intake Total 2195 / 2195 2444 / 2444 1560 / 1560
Output Total 2405 / 2405 1950 / 1950 250 / 250
Balance -210 / -210 494 / 494 1310 / 1310
--- NOTE | 2024-05-05 09:49 | CM ---
Reviewed the chart notes. NGT discontinued. Advanced to full liquid diet. CM continues to be available to patient/family and is monitoring medical plan for needs at discharge.
Plan: Discharge to patient's son's home when medically stable.
[2024-05-05 11:07] LABS: APTT 93.8 Sec (23.4-35.0)
[2024-05-05 11:10] VITALS: BP 106/53
[2024-05-05 12:08] LABS: Glucose - Point of Care 154 mg/dl (70-99)
[2024-05-05] MEDS: NOVOLOG FLEXPEN-LOW RESISTANCE 1 UNITS SC (12:25)
[2024-05-05 15:20] VITALS: BP 109/63
[2024-05-05] MEDS: NOVOLOG FLEXPEN-LOW RESISTANCE 2 UNITS SC (17:46)
[2024-05-05 17:52] LABS: Glucose - Point of Care 225 mg/dl (70-99)
[2024-05-05 20:02] VITALS: BP 108/54
[2024-05-05] MEDS: ROXICODONE 5 MG PO (20:42)
[2024-05-05] MEDS: MELATONIN 5 MG PO (21:59)
[2024-05-05] MEDS: PAXIL 20 MG PO (21:59)
[2024-05-05 23:25] VITALS: BP 104/66
[2024-05-05 23:58] LABS: Glucose - Point of Care 190 mg/dl (70-99)
[2024-05-06] VITALS (7 sets, daily range): BP systolic 94–129; BP diastolic 47–63; BMI 28.5
[2024-05-06] MEDS: NOVOLOG FLEXPEN-LOW RESISTANCE SC ×2 (00:21→06:09)
[2024-05-06] MEDS: NORMOSOL-R 1000 IV ×2 (02:03→09:10)
[2024-05-06] MEDS: HEPARIN 25000 UNITS/250 ML IV (03:20)
--- NOTE | 2024-05-06 05:26 | W.PN.HOSP.TC ---
Today's Communication/Plan
-
Holding Anticoagulation and Plavix d/t recent bloody bowel movement
cont diet as per surgery
Monitor H&H
IV iron supplementation
Assessment / Plan
Assessment / Plan
Post-op Ileus - 05/03 small bowel follow-through shows resolving ileus versus partial SBO�no discrete transition point identified. Resolving, status post NG tube, removed 05/04. Advance to full liquids today as per CRS. So far tolerating diet
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 Underwent right hemicolectomy 04/25/[address] Jiang, findings of distended and nonperforated ischemic cecum.
Paroxysmal atrial fibrillation - Home Eliquis on hold treated w IV heparin placed on hold d/t Bloody BM w associate Hgb drop. Increased Toprol XL to 100 mg twice a day for uncontrolled heart rate.
Bloody BM w/ associate Hgb drop 05/06
anticoagulation since placed on hold
H&H so far stable/trending up since drop
continuing diet as per surgery
Anemia work up notes severe Iron def Anemia with associate Anemia of chronic disease. B12 and Folate non-deficient.
IV iron supplementation started while in hospital, eventual transition to Oral anticipated.
Fever and leukocytosis- Sepsis ruled out. No abscess on CT abd/pelvis 04/29. Blood cx repeated 04/29, negative so far. Completed cefepime and Flagyl from 04/29 through 05/03 per ID. Fever and leukocytosis resolved. ID suspects due to ileus. They
have signed off. Monitor WBC/fever curve.
Does have subcutaneous seroma with drainage in the midline, as noted by surgical service.
History of autoimmune hepatitis
Followed at [place]
Last dose of Imuran was in 2018
AST elevation noted
CAD/CABG - last stented in December.
Follows with billboard erector helper at [place]
On Plavix - still held - resume when okay with CRS.
On Imdur 60 mg daily, losartan 50 mg daily - still held due to soft BP
Resumed metoprolol, rosuvastatin 20 mg daily
EKG sinus rhythm with nonspecific ST-T changes
DM2 without hyperglycemia -on Januvia as outpatient. Hemoglobin A1c 7.0%. Continue sliding scale insulin.
Prolonged QTC -magnesium and potassium normal. Repeat EKG 05/03 shows improved QTc. Would continue avoiding Zofran and other QTc prolonging agents.
Essential Hypertension -blood pressure acceptable on only metoprolol. Holding losartan.
Prostate disease -continue finasteride and tamsulosin.
Hyperlipidemia -continue rosuvastatin.
Obesity due to excess calories -weight loss encouraged.
PT appreciated Home Health
DVT prophylaxis�heparin drip on hold d/t recent bloody bowel movement AM 05/06
Full code
Total time spent to see the patient on the floor, examine the patient, review data and lab results, discuss treatment plan with patient, nursing staff around 50 minutes.
Physical Exam
General: No acute distress
HEENT: Normocephalic, Atraumatic, EOMI, MMM
Respiratory: Clear to Auscultation bilaterally
Cardiac: Normal S1/S2, Regular Rate and Rhythm
GI: Soft, appropriately tender, midline incision with rik in place, incisions clean/dry/intact
Extremities: No Clubbing, Cyanosis, or Edema
Neuro: Nonfocal/Grossly Intact
Psych: Calm, Cooperative
Derm: No Visible lesions
Anticipated Discharge: 24 - 48 hours
Subjective/Interval History
-
Date of Service: May 06, 2024
Bloody bowel movements noted early in morning with associate drop in Hgb. Patient otherwise reports feeling relatively well since then. Continues with mild mod abd discomfort/tenderness tolerable at rest.
Objective Data
-
Labs:
Laboratory Results
05/06/24
06:00
WBC Pending
Hgb Pending
Hct Pending
Plt Count Pending
APTT Pending
Sodium Pending
Potassium Pending
Chloride Pending
Carbon Dioxide Pending
BUN Pending
Creatinine Pending
Glucose Pending
Calcium Pending
Vital Signs:
Vital Signs
Temp Pulse Resp BP Pulse Ox
98.5 F 65 20 103/63 96
05/06/24 03:59 05/06/24 03:59 05/06/24 03:59 05/06/24 03:59 05/06/24 03:59
I&O
05/04/24 05/05/24 05/06/24
06:59 06:59 06:59
Intake Total 2444 / 2444 2940 / 2940 2099 / 2099
Output Total 1950 / 1950 700 / 700 200 / 200
Balance 494 / 494 2240 / 2240 1900 / 1900
[2024-05-06 06:08] LABS: Glucose - Point of Care 131 mg/dl (70-99)
[2024-05-06 06:28] LABS: Hematocrit 27.4 % (39.0-52.0); Hemoglobin 9.7 g/dL (13.0-18.0); Mean Corp Hgb Conc. 35.4 g/dL (33.0-37.0); Mean Corpuscular Hgb 31.6 pg (27.0-31.0); Mean Corpuscular Volume 89.3 fL (80.0-94.0); Mean Platelet Volume 9.3 fL (7.4-10.4); Platelet Count 350 10^3/uL (130-400); Red Blood Cell Count 3.07 10^6/uL (4.70-6.10); Red Cell Dist. Width 13.9 % (11.5-14.5); White Blood Cell Count 8.4 10^3/uL (4.8-10.8)
[2024-05-06 06:35] LABS: APTT 107.8 Sec (23.4-35.0)
[2024-05-06 06:56] LABS: Blood Urea Nitrogen 11 mg/dl (9-20); Calcium 7.8 mg/dl (8.4-10.2); Carbon Dioxide 26 mmol/L (22-30); Chloride 104 mmol/L (98-107); Estimated Creatinine Clearance 110 ml/min; Glucose 125 mg/dl (70-99); Potassium 3.9 mmol/L (3.5-5.1); Sodium 136 mmol/L (135-145); eGFR > 60.00
--- NOTE | 2024-05-06 07:44 | W.PN.CARDCBS ---
Addendum entered and electronically signed by aGbriella Quintanilla DO 05/06/24 12:19:
I saw and examined the patient.
The Plodding Operator's note was reviewed and I agree with the note.
Comment: Patient seen and examined this morning. This morning with bright red blood in bowel movement with some mild abdominal cramping. No nausea or vomiting. No chest pain or pressure. No palpitations. Discussed with colorectal surgery and
nursing
GEN: No distress, awake, alert, oriented x3
HEENT: mmm
LUNGS: CTA B/L, no wheezes/rales
CV: Regular, positive S1-S2. no murmur
ABD: soft mild incisional tenderness. Incision clean dry and intact. Positive bowel sounds.
EXT: No cyanosis, clubbing, edema
NEURO: Gross non-focal
SKIN: Warm, pink, dry. No rash
Plan:
Presented 04/25/2024 with acute cecal volvulus.
-Status post emergent open right hemicolectomy 04/25/2024, patient given Kcentra prior to emergent right hemicolectomy
-Had IV Lasix 20mg x2 doses [04/28-] for post op fluid retention; no evidence of overt volume overload and no need for diuretics
-Improving post op and tolerating diet
-Bloody bowel movements this morning being monitored by colorectal surgery.
-Hemoglobin dropped from 12->9.7. Serial hemoglobin trends ordered by CRS
-Continue hep drip; hold Xarelto and Plavix for now
-plan to transition back to eliquis/plavix in AM per surgery recs
-Will hold IV heparin. Continue to hold anticoagulation/antiplatelets. Surgery to monitor situation and inform us when safer to resume
-No further surgical procedures planned at this time
Paroxysmal atrial fibrillation currently in sinus rhythm with paroxysms of atrial fibrillation this admission
-Asymptomatic and rates are controlled when in atrial fibrillation
-Continue metoprolol succinate 100mg BID-lower blood pressure trends this morning and will put hold parameters
-Discuss eventual rhythm control options and ablation with his outpatient philanthropy officer once he is recovered from surgery
-Hb stable, 12
-Resume anticoagulation when able
CAD s/p CABG and PCI 12/2023
-Stable without anginal complaints
-Would like to resume Plavix as soon as possible given PCI 12/2023
-Continue statin
-Imdur held for BP- would continue to hold and reassess with his outpatient philanthropy officer
Will follow with you.
Original Note:
Today's Communication / Plan
-
with bloody BM this AM
hold off on transition to eliquis/plavix for now. need to hold IV heparin. continue asa
further work up per colorectal
Impression / Plan
-
Primary care physician: Bora Garcia
Outpatient philanthropy officer: Dr. Gael Mason at [facility] [phone]
Impression:
Presents 04/25/2024 with acute abdominal pain x 1 day
Acute cecal volvulus
s/p emergent right hemicolectomy 04/25/2024
Fever
Leukocytosis
Paroxysmal atrial fibrillation
recurrence of Afib 04/27/24
Chronic anticoagulation on Eliquis
CAD
s/p CABG at [place] 2016
s/p PCI at [facility] 12/2023
DM
Autoimmune hepatitis off Imuran since 2018
HTN
BPH
HLD
Chronic low back pain
nephrolithiasis hx lithotripsy
Right RTC repair
left shoulder reverse total arthroplasty
Plan:
-tolerating full liquids
-this morning patient with bloody BM. hgb down from 12 to 9.7. will hold off on transitioning to eliquis/plavix. d/w colorectal. hold IV heparin. continue asa 81mg daily
-remains in rate controlled afib on review of tele overnight. continue toprol
-Could consider for eventual cardioversion as OP
-no evidence of overt volume overload
-d/w nursing
HPI: [facility] this morning with abdominal pain and was admitted with acute cecal volvulus and cardiology has been consulted for possible post-op atrial fibrillation. Patient has a past medical history significant for coronary
artery disease status post CABG and stents, hypertension, hyperlipidemia, paroxysmal atrial fibrillation on chronic anticoagulation with Eliquis. Patient was found to have acute cecal volvulus on imaging. He was also noted to have fever, Tmax
101.4. Patient was taken emergently to the OR and underwent open right colectomy on 04/25/2024. Patient says Afib was diagnosed after he wore a week long heart monitor following PCI in 12/2023. He was noted to have Afib and was started on Eliquis at
that time. He was continued on Plavix as well, but aspirin was stopped when Eliuquis was added. Last dose of Eliquis was 04/24/24 AM. Given he was on anticoagulation he was given Kcentra. Patient denies palpitations post-op. Tele reviewed and it
appears to be baseline artifact on ECG.
Progress Note - Rack Maker
Subjective
Date of Service: May 06, 2024
tolerating fulls. no abd pain, CP, SOB. with bloody BM this AM
Objective
Labs:
05/06/24 05:30
05/06/24 05:30
Labs
Hgb 9.7 g/dL (13.0-18.0) L 05/06/24 05:30
Hct 27.4 % (39.0-52.0) L 05/06/24 05:30
Plt Count 350 10^3/uL (130-400) 05/06/24 05:30
PT 14.5 Sec (11.4-14.6) 04/25/24 12:56
INR 1.15 04/25/24 12:56
APTT 107.8 Sec (23.4-35.0) H 05/06/24 05:30
Sodium 136 mmol/L (135-145) 05/06/24 05:30
Potassium 3.9 mmol/L (3.5-5.1) 05/06/24 05:30
BUN 11 mg/dl (9-20) 05/06/24 05:30
Creatinine 0.6 mg/dL (0.7-1.3) L 05/06/24 05:30
Glucose 125 mg/dl (70-99) H 05/06/24 05:30
Vital Signs and I&O:
Vital Signs
Temp Pulse Resp BP Pulse Ox
98.5 F 65 20 103/63 96
05/06/24 03:59 05/06/24 03:59 05/06/24 03:59 05/06/24 03:59 05/06/24 03:59
Vital Signs
Temp Pulse Resp BP Pulse Ox
98.5 F 65 20 103/63 96
05/06/24 03:59 05/06/24 03:59 05/06/24 03:59 05/06/24 03:59 05/06/24 03:59
Intake & Output
05/03/24 05/04/24 05/05/24 05/06/24
07:59 07:59 07:59 07:59
Intake Total 2545 / 2545 2094 / 2094 2940 / 2940 3648 / 3648
Output Total 2405 / 2405 1950 / 1950 700 / 700 1080 / 1080
Balance 140 / 140 144 / 144 2240 / 2240 2568 / 2568
Physical Exam
Physical Exam
GEN: No distress, awake, alert, oriented x3
HEENT: supple, anicteric, mmm, eomi
LUNGS: CTA B/L, no wheezes/rales
CV: Irreg, S1/S2, no murmur
ABD: soft, BS+, NT/ND
EXT: No cyanosis, clubbing, edema
NEURO: Gross non-focal
SKIN: Warm, pink, dry. No rash
--- NOTE | 2024-05-06 08:50 | PTCARENOTE ---
pt notified nurses he had bloody stool this AM. Verified in brief brown stool with zach blood. oRxanne Davis was notified she stated she would let colorectal know. Manager Case said to HOLD Heparin gtt promptly help gtt at [phone]. Pt eating Full
liquid diet currently no n/v, feels good.
[2024-05-06] MEDS: ASPIR LOW (ENTERIC COATED) 81 MG PO (09:06)
[2024-05-06] MEDS: CRESTOR 20 MG PO (09:07)
[2024-05-06] MEDS: PROSCAR 5 MG PO (09:07)
[2024-05-06] MEDS: FLOMAX 0.400000000000000022 MG PO ×2 (09:07→20:50)
[2024-05-06] MEDS: PROTONIX IV 40 MG IV (09:09)
[2024-05-06] MEDS: NSS (PRESERVATIVE FREE) 10 ML IV (09:10)
--- NOTE | 2024-05-06 09:11 | W.PN.CRS1 ---
Today's Communication / Plan
-
S/p bloody BMs with Hb drop; hold all AC
Trend CBC every 6hrs
Continue fulls, make n.p.o. if continued bleeding
Assessment/Plan
-
79-year-old male with PMH of A-fib (on Eliquis), DM, CAD (s/p CABG, stents), autoimmune hepatitis, HTN, HLD, BPH, kidney stones who presents with acute abdominal pain, CT showing cecal volvulus
POD 11 ex lap, right hemicolectomy; overnight went into A-fib with RVR
Wbc 8.4 from 11.0, Hb 9.7 from 12.0
�Lower GI bleed, most likely anastomotic; 2 g drop in hemoglobin
�Hold all AC; trend CBC every 6 hours; transfuse if Hb<7.0
�No intervention currently indicated, but will watch closely
�Advance to fulls; if continues to bleed, switch to NPO with IVF
-If NPO by tmrw, will consider PICC/TPN
� Continue pain control with Tylenol, Dilaudid as needed
- S/p 3 days antibiotics, monitor off per ID
�Appreciate cardiology
-afib with RVR, cont metop
-Hold AC as above
- Cont home meds, ok for PO meds
�OOB/IS, recommend PT
� Appreciate hospitalist
Subjective Data
Procedure
04/25/2024- open right colectomy for cecal volvulus
Subjective Data
Date of Service: May 06, 2024
Overnight, patient had 2�3 bloody BMs. Otherwise asymptomatic. AM hemoglobin was 9.7, so his heparin drip was held.
Pain controlled.
Denies nausea/vomiting. Tolerating diet.
+flatus +BMs (as above) +voiding
Pt is OOB.
Objective Data
-
Vital Signs
Temp Pulse Resp BP Pulse Ox
98.2 F 59 18 99/47 95
05/06/24 07:00 05/06/24 07:00 05/06/24 07:00 05/06/24 07:00 05/06/24 07:00
Intake & Output
05/05/24 05/06/24 05/07/24
06:59 06:59 06:59
Intake Total 2940 / 2940 3648 / 3648
Output Total 700 / 700 1080 / 1080
Balance 2240 / 2240 2568 / 2568
Intake:
Oral fluids 1140 / 1140 1620 / 1620
IV fluids (Total) 1800 / 1800 1860 / 1860
IV piggybacks 168 / 168
Output:
Urine, Voided 700 / 700 1080 / 1080
Other:
Number of approximated SMALL 1
amounts of urine
Number of approximated MODERATE 2
amounts of urine
Number of approximated LARGE 1
amounts of urine
Lab Results
05/06/24 05:30
Physical Exam
-
General: No Acute Distress and AOx3
HEENT: Grossly Normal
Abdomen: Soft, Non Distended, Non Tender, No Guarding and No Rebound
Neurological: Other (Moving all extremities, no gross deficits)
Skin: Warm and Dry
Wound: No Signs of Infection, No Skin Erythema and Other (Midline incision open to air, no drainage)
[2024-05-06] MEDS: TOPROL XL PO ×2 (09:17→20:03)
[2024-05-06] MEDS: NSS 250 IV (11:16)
[2024-05-06 11:59] LABS: Glucose - Point of Care 188 mg/dl (70-99)
[2024-05-06 12:18] LABS: % Basophils 0.4 % (0-2); % Eosinophils 3.2 % (0-6); % Immature Granulocytes 0.5 % (0-0.5); % Lymphocytes 21.1 % (20.5-51.1); % Monocytes 8.7 % (1.7-9.3); % Neutrophils 66.1 % (42.2-75.2); Absolute Eosinophils 0.3 10^3/uL (0-0.7); Absolute Lymphocytes 1.7 10^3/uL (1.2-3.4); Absolute Monocytes 0.7 10^3/uL (0.1-0.6); Absolute Neutrophils 5.3 10^3/uL (1.4-6.5); Hematocrit 28.3 % (39.0-52.0); Hemoglobin 9.6 g/dL (13.0-18.0); Mean Corp Hgb Conc. 33.9 g/dL (33.0-37.0); Mean Corpuscular Hgb 31.3 pg (27.0-31.0); Mean Corpuscular Volume 92.2 fL (80.0-94.0); Mean Platelet Volume 9.2 fL (7.4-10.4); Nucleated Red Blood Cells % 0 % (-); Platelet Count 327 10^3/uL (130-400); Red Blood Cell Count 3.07 10^6/uL (4.70-6.10)
[2024-05-06] MEDS: NOVOLOG FLEXPEN-LOW RESISTANCE 1 UNITS SC ×2 (12:43→17:20)
[2024-05-06 13:43] LABS: Total Iron Binding Capacity 182 ug/dl (261-462)
[2024-05-06 13:50] LABS: Iron < 20 ug/dl (49-181)
--- NOTE | 2024-05-06 14:13 | CM ---
Reviewed the chart notes. Diet remains as full liquid. CM continues to be available to patient/family and is monitoring medical plan for needs at discharge.
Plan: Discharge to patient's son's home when medically stable.
[2024-05-06 15:05] LABS: Folate 13.9 ng/ml (2.76-20); Vitamin B12 > 1000 pg/ml (239-931)
[2024-05-06 17:12] LABS: Glucose - Point of Care 162 mg/dl (70-99)
[2024-05-06 18:22] LABS: % Basophils 0.7 % (0-2); % Eosinophils 4.3 % (0-6); % Immature Granulocytes 0.5 % (0-0.5); % Lymphocytes 24.5 % (20.5-51.1); % Monocytes 10.6 % (1.7-9.3); % Neutrophils 59.4 % (42.2-75.2); Absolute Basophils 0.1 10^3/uL (0-0.2); Absolute Eosinophils 0.4 10^3/uL (0-0.7); Absolute Lymphocytes 2.1 10^3/uL (1.2-3.4); Absolute Monocytes 0.9 10^3/uL (0.1-0.6); Absolute Neutrophils 5.1 10^3/uL (1.4-6.5); Hematocrit 30.6 % (39.0-52.0); Hemoglobin 10.3 g/dL (13.0-18.0); Mean Corp Hgb Conc. 33.7 g/dL (33.0-37.0); Mean Corpuscular Volume 92.2 fL (80.0-94.0); Nucleated Red Blood Cells % 0 % (-); Platelet Count 338 10^3/uL (130-400); Red Blood Cell Count 3.32 10^6/uL (4.70-6.10); White Blood Cell Count 8.6 10^3/uL (4.8-10.8)
[2024-05-06] MEDS: PAXIL 20 MG PO (21:01)
[2024-05-06] MEDS: MELATONIN 5 MG PO (21:01)
[2024-05-06] MEDS: FERRLECIT 110 MG IV (21:52)
[2024-05-06 21:53] LABS: Glucose - Point of Care 186 mg/dl (70-99)
[2024-05-07] MEDS: NORMOSOL-R 1000 IV ×2 (02:55→13:03)
[2024-05-07 03:21] VITALS: BP 126/75
[2024-05-07 06:00] VITALS: BMI 29.2
[2024-05-07 07:15] VITALS: BP 119/55
[2024-05-07 07:29] LABS: Glucose - Point of Care 137 mg/dl (70-99)
[2024-05-07] MEDS: NOVOLOG FLEXPEN-LOW RESISTANCE SC (07:40)
[2024-05-07 07:44] LABS: Hematocrit 30.4 % (39.0-52.0); Hemoglobin 10.5 g/dL (13.0-18.0); Mean Corp Hgb Conc. 34.5 g/dL (33.0-37.0); Mean Corpuscular Hgb 31.3 pg (27.0-31.0); Mean Corpuscular Volume 90.7 fL (80.0-94.0); Mean Platelet Volume 9.2 fL (7.4-10.4); Platelet Count 385 10^3/uL (130-400); Red Blood Cell Count 3.35 10^6/uL (4.70-6.10); Red Cell Dist. Width 14.1 % (11.5-14.5); White Blood Cell Count 7.3 10^3/uL (4.8-10.8)
[2024-05-07 07:51] LABS: Blood Urea Nitrogen 4 mg/dl (9-20); Calcium 8.3 mg/dl (8.4-10.2); Carbon Dioxide 27 mmol/L (22-30); Chloride 107 mmol/L (98-107); Estimated Creatinine Clearance 110 ml/min; Glucose 139 mg/dl (70-99); Potassium 4.3 mmol/L (3.5-5.1); Sodium 139 mmol/L (135-145); eGFR > 60.00
--- NOTE | 2024-05-07 08:58 | W.PN.HOSP.TC ---
Today's Communication/Plan
-
see bold
Assessment / Plan
Assessment / Plan
Post-op Ileus - 05/03 small bowel follow-through shows resolving ileus versus partial SBO�no discrete transition point identified. Resolving, status post NG tube, removed 05/04. Advanced to LRD today as per CRS. So far tolerating diet
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 Underwent right hemicolectomy 04/25/[address] Jiang, findings of distended and nonperforated ischemic cecum.
Paroxysmal atrial fibrillation - Home Eliquis on hold treated w IV heparin placed on hold d/t Bloody BM w associate Hgb drop. Increased Toprol XL to 100 mg twice a day for uncontrolled heart rate.
Bloody BM w/ associate Hgb drop 05/06
anticoagulation since placed on hold - resume when ok w/ CRS
H&H so far stable/trending up since drop
continuing diet as per surgery
Anemia work up notes severe Iron def Anemia with associate Anemia of chronic disease. B12 and Folate non-deficient.
IV iron supplementation started while in hospital, eventual transition to Oral anticipated.
Fever and leukocytosis- Sepsis ruled out. No abscess on CT abd/pelvis 04/29. Blood cx repeated 04/29, negative so far. Completed cefepime and Flagyl from 04/29 through 05/03 per ID. Fever and leukocytosis resolved. ID suspects due to ileus. They
have signed off. Monitor WBC/fever curve.
Does have subcutaneous seroma with drainage in the midline, as noted by surgical service.
History of autoimmune hepatitis
Followed at [facility]
Last dose of Imuran was in 2018
AST elevation noted
CAD/CABG - last stented in December.
Follows with title specialist at [facility]
On Plavix - still held - resume when okay with CRS.
On Imdur 60 mg daily, losartan 50 mg daily - still held due to soft BP
Resumed metoprolol, rosuvastatin 20 mg daily
EKG sinus rhythm with nonspecific ST-T changes
DM2 without hyperglycemia -on Januvia as outpatient. Hemoglobin A1c 7.0%. Continue sliding scale insulin.
Prolonged QTC -magnesium and potassium normal. Repeat EKG 05/03 shows improved QTc. Would continue avoiding Zofran and other QTc prolonging agents.
Essential Hypertension -blood pressure acceptable on only metoprolol. Holding losartan.
Prostate disease -continue finasteride and tamsulosin.
Hyperlipidemia -continue rosuvastatin.
Obesity due to excess calories -weight loss encouraged.
PT appreciated Home Health
DVT prophylaxis�heparin drip on hold d/t recent bloody bowel movement AM 05/06
Full code
Total time spent to see the patient on the floor, examine the patient, review data and lab results, discuss treatment plan with patient, nursing staff around 35 minutes.
Physical Exam
General: No acute distress
HEENT: Normocephalic, Atraumatic, EOMI, MMM
Respiratory: Clear to Auscultation bilaterally
Cardiac: Normal S1/S2, Regular Rate and Rhythm
GI: Soft, appropriately tender, midline incision with rik in place, incisions clean/dry/intact
Extremities: No Clubbing, Cyanosis, or Edema
Neuro: Nonfocal/Grossly Intact
Psych: Calm, Cooperative
Derm: No Visible lesions
Anticipated Discharge: > 48 hours
Subjective/Interval History
-
Date of Service: May 07, 2024
No more bloody stools. No fever, no vomiting.
Objective Data
-
Labs:
Laboratory Results
05/07/24
06:58
WBC 7.3
Hgb 10.5 L
Hct 30.4 L
Plt Count 385
Sodium 139
Potassium 4.3
Chloride 107
Carbon Dioxide 27
BUN 4 L
Creatinine 0.6 L
Glucose 139 H
Calcium 8.3 L
Vital Signs:
Vital Signs
Temp Pulse Resp BP Pulse Ox
97.5 F 82 16 119/55 98
05/07/24 07:15 05/07/24 07:15 05/07/24 07:15 05/07/24 07:15 05/07/24 07:15
I&O
05/06/24 05/07/24 05/08/24
06:59 06:59 06:59
Intake Total 3648 / 3648 3800 / 3800
Output Total 1080 / 1080 460 / 460
Balance 2568 / 2568 3340 / 3340
[2024-05-07] MEDS: ROXICODONE 5 MG PO (09:40)
[2024-05-07] MEDS: TOPROL XL 100 MG PO ×2 (09:41→19:56)
[2024-05-07] MEDS: FLOMAX 0.400000000000000022 MG PO ×2 (09:41→19:56)
[2024-05-07] MEDS: PROSCAR 5 MG PO (09:42)
[2024-05-07] MEDS: NSS (PRESERVATIVE FREE) 10 ML IV (09:43)
[2024-05-07] MEDS: CRESTOR 20 MG PO (09:43)
[2024-05-07] MEDS: ASPIR LOW (ENTERIC COATED) 81 MG PO (09:43)
[2024-05-07] MEDS: PROTONIX IV 40 MG IV (09:43)
--- NOTE | 2024-05-07 10:26 | W.PN.UPDATE ---
Update Note
Progress Note Update
plan to resume OP eliquis, plavix when safe from surgical standpoint. will follow peripherally, please inform us when ok to resume and can place orders.
[2024-05-07 11:05] VITALS: BP 112/56
[2024-05-07 12:02] LABS: Glucose - Point of Care 167 mg/dl (70-99)
[2024-05-07] MEDS: NOVOLOG FLEXPEN-LOW RESISTANCE 1 UNITS SC ×2 (12:51→17:17)
[2024-05-07] MEDS: FERRLECIT 110 MG IV (13:03)
[2024-05-07 15:20] VITALS: BP 116/55
--- NOTE | 2024-05-07 15:25 | W.PN.CRS1 ---
Addendum entered and electronically signed by John Agosto MD 05/07/24 15:34:
I saw and examined the patient.
The COLORER HIDES AND SKINS's note was reviewed and I agree with the note.
Comment:
79-year-old male with PMH of A-fib (on Eliquis), DM, CAD (s/p CABG, stents), autoimmune hepatitis, HTN, HLD, BPH, kidney stones who presents with acute abdominal pain, CT showing cecal volvulus
POD 12 ex lap, right hemicolectomy; c/b A-fib with RVR
Doing well. Pain controlled. Tolerating diet. Having BMs today that are not bloody. Voiding.
Wbc 7.3, Hb 10.5 from 10.3
�Lower GI bleed, most likely anastomotic; 2 g drop in hemoglobin, now stabilized
�Hold all AC; trend CBC tmrw; if stable, ok to restart hep gtt
� Advance to low residue
� Continue pain control with Tylenol, Dilaudid as needed
- S/p 3 days antibiotics, monitor off per ID
�Appreciate cardiology
-afib with RVR, cont metop
-Hold AC as above
- Cont home meds, ok for PO meds
�OOB/IS, recommend PT
� Appreciate hospitalist
Original Note:
Today's Communication / Plan
-
Advance to LRD
Assessment/Plan
-
79-year-old male with PMH of A-fib (on Eliquis), DM, CAD (s/p CABG, stents), autoimmune hepatitis, HTN, HLD, BPH, kidney stones who presents with acute abdominal pain, CT showing cecal volvulus
POD #12 ex lap, right hemicolectomy
PAF noted post operatively: cards following
GIB with initiation of anticoagulation: now on hold. Last bloody BM was last night, currently passing loose brown stools
H/H stable
AFVSS
--Advance to LRD
� Continue pain control with Tylenol, Dilaudid as needed
�Appreciate cardiology
-afib with RVR, cont metop
-Hold AC as above. Consider resuming once h/h stable >24 hours
- Cont home meds, ok for PO meds
�OOB/IS, Following with PT
� Appreciate hospitalist
Subjective Data
Procedure
04/25/2024- open right colectomy for cecal volvulus
Subjective Data
Date of Service: May 07, 2024
Patient seen and examined at bedside with Dr. Agosto. Denies n/v. Tolerating liquids. Passing brown loose stools today, no longer bloody. Denies pain. OOB and ambulating. Notes he is quite hungry and would love a T-bone steak.
Objective Data
-
Vital Signs
Temp Pulse Resp BP Pulse Ox
98.0 F 88 16 112/56 96
05/07/24 11:05 05/07/24 11:05 05/07/24 11:05 05/07/24 11:05 05/07/24 11:05
Intake & Output
05/06/24 05/07/24 05/08/24
06:59 06:59 06:59
Intake Total 3648 / 3648 3800 / 3800 320 / 320
Output Total 1080 / 1080 460 / 460
Balance 2568 / 2568 3340 / 3340 320 / 320
Intake:
Oral fluids 1620 / 1620 2160 / 2160
IV fluids (Total) 1860 / 1860 1530 / 1530 320 / 320
IV piggybacks 168 / 168 110 / 110
Output:
Urine, Voided 1080 / 1080 460 / 460
Other:
Number of approximated SMALL 1
amounts of urine
Number of approximated MODERATE 2
amounts of urine
Number of approximated LARGE 1 1
amounts of urine
Number of unmeasured liquid
stools
Rectum 1
Lab Results
05/07/24 06:58
05/07/24 06:58
Physical Exam
-
General: No Acute Distress and AOx3
HEENT: Grossly Normal
Abdomen: Soft, Non Distended, Non Tender, No Guarding and No Rebound
Neurological: Other (Moving all extremities, no gross deficits)
Skin: Warm and Dry
Wound: No Signs of Infection, No Skin Erythema and Other (Midline incision open to air, no drainage)
[2024-05-07 17:03] LABS: Glucose - Point of Care 161 mg/dl (70-99)
[2024-05-07 19:00] VITALS: BP 129/69
[2024-05-07 21:18] LABS: Glucose - Point of Care 140 mg/dl (70-99)
[2024-05-07] MEDS: MELATONIN 5 MG PO (21:57)
[2024-05-07] MEDS: PAXIL 20 MG PO (21:57)
[2024-05-07 23:00] VITALS: BP 147/71
[2024-05-08 03:00] VITALS: BP 94/52
[2024-05-08] MEDS: NORMOSOL-R 1000 IV ×2 (03:15→13:02)
[2024-05-08 06:00] VITALS: BMI 29.0
[2024-05-08 07:20] VITALS: BP 97/56
[2024-05-08 07:22] LABS: Glucose - Point of Care 154 mg/dl (70-99)
[2024-05-08 07:39] LABS: Hematocrit 32.1 % (39.0-52.0); Hemoglobin 10.6 g/dL (13.0-18.0); Mean Corpuscular Hgb 31.2 pg (27.0-31.0); Mean Corpuscular Volume 94.4 fL (80.0-94.0); Mean Platelet Volume 9.5 fL (7.4-10.4); Platelet Count 389 10^3/uL (130-400); Red Cell Dist. Width 14.3 % (11.5-14.5); White Blood Cell Count 7.5 10^3/uL (4.8-10.8)
[2024-05-08 08:19] LABS: Blood Urea Nitrogen 5 mg/dl (9-20); Calcium 8.6 mg/dl (8.4-10.2); Carbon Dioxide 26 mmol/L (22-30); Chloride 106 mmol/L (98-107); Estimated Creatinine Clearance 110 ml/min; Glucose 133 mg/dl (70-99); Potassium 4.8 mmol/L (3.5-5.1); Sodium 139 mmol/L (135-145); eGFR > 60.00
--- NOTE | 2024-05-08 08:55 | W.PN.HOSP.TC ---
Today's Communication/Plan
-
Cleared by colorectal surgery to resume Eliquis today
Assessment / Plan
Assessment / Plan
Post-op Ileus - 05/03 small bowel follow-through shows resolving ileus versus partial SBO�no discrete transition point identified. Resolving, status post NG tube, removed 05/04. Advanced to low residue on 05/07. Currently tolerating. Discharge when
cleared by colorectal surgery. PT rec HH.
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 Underwent right hemicolectomy 04/25/[address] Jiang, findings of distended and nonperforated ischemic cecum.
Paroxysmal atrial fibrillation - Increased Toprol XL to 100 mg twice a day for uncontrolled heart rate. Cleared by colorectal surgery to resume Eliquis 05/08.
Bloody BM w/ associate Hgb drop 05/06
H&H so far stable/trending up since drop
continuing diet as per surgery
Anemia work up notes severe Iron def Anemia with associate Anemia of chronic disease. B12 and Folate non-deficient.
Status post IV iron, will changed to oral iron.
Fever and leukocytosis- Sepsis ruled out. No abscess on CT abd/pelvis 04/29. Blood cx repeated 04/29, negative so far. Completed cefepime and Flagyl from 04/29 through 05/03 per ID. Fever and leukocytosis resolved. ID suspects due to ileus. They
have signed off. Monitor WBC/fever curve.
Does have subcutaneous seroma with drainage in the midline, as noted by surgical service.
History of autoimmune hepatitis
Followed at [facility]
Last dose of Imuran was in 2018
AST elevation noted
CAD/CABG - last stented in December.
Follows with plaster molder at [facility]
On Plavix - still held - resume when okay with CRS.
On Imdur 60 mg daily, losartan 50 mg daily - still held due to soft BP
Resumed metoprolol, rosuvastatin 20 mg daily
EKG sinus rhythm with nonspecific ST-T changes
DM2 without hyperglycemia -on Januvia as outpatient. Hemoglobin A1c 7.0%. Continue sliding scale insulin.
Prolonged QTC -magnesium and potassium normal. Repeat EKG 05/03 shows improved QTc. Would continue avoiding Zofran and other QTc prolonging agents.
Essential Hypertension -blood pressure acceptable on only metoprolol. Holding losartan.
Prostate disease -continue finasteride and tamsulosin.
Hyperlipidemia -continue rosuvastatin.
Obesity due to excess calories -weight loss encouraged.
DVT prophylaxis�eliquis
Full code
Total time spent to see the patient on the floor, examine the patient, review data and lab results, discuss treatment plan with patient, nursing staff around 50 minutes.
Physical Exam
General: No acute distress
HEENT: Normocephalic, Atraumatic, EOMI, MMM
Respiratory: Clear to Auscultation bilaterally
Cardiac: Normal S1/S2, Regular Rate and Rhythm
GI: Soft, appropriately tender, midline incision with rik in place, incisions clean/dry/intact
Extremities: No Clubbing, Cyanosis, or Edema
Neuro: Nonfocal/Grossly Intact
Psych: Calm, Cooperative
Derm: No Visible lesions
Anticipated Discharge: Within 24 hours
Subjective/Interval History
-
Date of Service: May 08, 2024
Patient tolerating his solids. No black or bloody stools. No fever, no vomiting.
Objective Data
-
Labs:
Laboratory Results
05/08/24
06:48
WBC 7.5
Hgb 10.6 L
Hct 32.1 L
Plt Count 389
Sodium 139
Potassium 4.8
Chloride 106
Carbon Dioxide 26
BUN 5 L
Creatinine 0.6 L
Glucose 133 H
Calcium 8.6
Vital Signs:
Vital Signs
Temp Pulse Resp BP Pulse Ox
98.2 F 72 18 97/56 96
05/08/24 07:20 05/08/24 07:20 05/08/24 07:20 05/08/24 07:20 05/08/24 07:20
I&O
05/07/24 05/08/24 05/09/24
06:59 06:59 06:59
Intake Total 3800 / 3800 2890 / 2890
Output Total 460 / 460 2190 / 2190
Balance 3340 / 3340 700 / 700
[2024-05-08] MEDS: NOVOLOG FLEXPEN-LOW RESISTANCE 1 UNITS SC ×2 (09:19→13:03)
[2024-05-08] MEDS: NSS (PRESERVATIVE FREE) 10 ML IV (09:22)
[2024-05-08] MEDS: PROTONIX IV 40 MG IV (09:22)
[2024-05-08] MEDS: FLOMAX 0.400000000000000022 MG PO ×2 (09:24→20:07)
[2024-05-08] MEDS: TOPROL XL PO (09:24)
[2024-05-08] MEDS: PROSCAR 5 MG PO (09:26)
[2024-05-08] MEDS: CRESTOR 20 MG PO (09:27)
[2024-05-08] MEDS: ASPIR LOW (ENTERIC COATED) 81 MG PO (09:27)
[2024-05-08] MEDS: TYLENOL 1000 MG PO ×2 (09:27→21:39)
[2024-05-08] MEDS: FEOSOL 325 MG PO (09:27)
[2024-05-08 10:47] LABS: APTT 39.2 Sec (23.4-35.0)
[2024-05-08 11:00] VITALS: BP 104/51
[2024-05-08 12:05] LABS: Glucose - Point of Care 160 mg/dl (70-99)
--- NOTE | 2024-05-08 12:29 | W.PN.CRS1 ---
Today's Communication / Plan
-
Cont low residue
Ok to start Eliquis, hold plavix
Possible DC in 1-2 days
Assessment/Plan
-
79-year-old male with PMH of A-fib (on Eliquis), DM, CAD (s/p CABG, stents), autoimmune hepatitis, HTN, HLD, BPH, kidney stones who presents with acute abdominal pain, CT showing cecal volvulus
POD 13 ex lap, right hemicolectomy; c/b A-fib with RVR
Wbc 7.5, Hb 10.6 from 10.5
�Lower GI bleed, most likely anastomotic; resolved
�Hb stable for >1day; ok to restart Eliquis and monitor for any recurrent bleeding; likely restart plavix tmrw
�Appreciate cardiology
-afib with RVR, cont metop, controlled
� Cont to low residue
� Continue pain control with Tylenol, Dilaudid as needed
- S/p 3 days postop of antibiotics, monitor off per ID
- Cont home meds, ok for PO meds
�OOB/IS, recommend PT
� Appreciate hospitalist
Dispo- possibly ready for d/c tmrw from surgical standpoint
Subjective Data
Procedure
04/25/2024- open right colectomy for cecal volvulus
Subjective Data
Date of Service: May 08, 2024
No overnight events.
Pain controlled.
Denies nausea/vomiting. Tolerating diet.
+flatus +BMs (nonbloody) +voiding
Pt is OOB.
Objective Data
-
Vital Signs
Temp Pulse Resp BP Pulse Ox
98.2 F 72 16 104/51 96
05/08/24 11:00 05/08/24 11:00 05/08/24 11:00 05/08/24 11:00 05/08/24 11:00
Intake & Output
05/07/24 05/08/24 05/09/24
06:59 06:59 06:59
Intake Total 3800 / 3800 2890 / 2890
Output Total 460 / 460 2190 / 2190
Balance 3340 / 3340 700 / 700
Intake:
Oral fluids 2160 / 2160 1820 / 1820
IV fluids (Total) 1530 / 1530 960 / 960
IV piggybacks 110 / 110 110 / 110
Output:
Urine, Voided 460 / 460 2190 / 2190
Other:
Number of approximated MODERATE 2 1
amounts of urine
Number of approximated LARGE 1 1
amounts of urine
Number of unmeasured liquid
stools
Rectum 1
Lab Results
05/08/24 06:48
05/08/24 06:48
Physical Exam
-
General: No Acute Distress and AOx3
HEENT: Grossly Normal
Abdomen: Soft, Non Distended, Non Tender, No Guarding, No Rebound and Other (Midline incision healing well with rik, no surrounding erythema or purulent drainage)
Neurological: Other (Moving all extremities, no gross deficits)
Skin: Warm and Dry
Wound: No Signs of Infection and No Skin Erythema
--- NOTE | 2024-05-08 14:43 | W.PN.CARDCBS ---
Today's Communication / Plan
-
Resume OAC today per CRS
Anticipate resuming Plavix in am
Reduce metoprolol succinate
Impression / Plan
-
Primary care physician: Bora Garcia
Outpatient recreation assistant: Dr. Gael Mason at [facility] [phone]
Impression:
Presents 04/25/2024 with acute abdominal pain x 1 day
Acute cecal volvulus
s/p emergent right hemicolectomy 04/25/2024
Fever
Leukocytosis
Paroxysmal atrial fibrillation
recurrence of Afib 04/27/24
Chronic anticoagulation on Eliquis
CAD
s/p CABG at [place] 2015
s/p PCI at [facility] 12/2023
DM
Autoimmune hepatitis off Imuran since 2017
HTN
BPH
HLD
Chronic low back pain
nephrolithiasis hx lithotripsy
Right RTC repair
left shoulder reverse total arthroplasty
Plan:
Presented 04/25/2024 with acute cecal volvulus.
-Status post emergent open right hemicolectomy 04/25/2024, patient given Kcentra prior to emergent right hemicolectomy
-Had IV Lasix 20mg x2 doses [04/28-] for post op fluid retention; no evidence of overt volume overload and no need for diuretics
-Post operative course complicated by bloody stool which has resolved; no transfusion
-Was initially on IV heparin gtt which was held 2/2 bloody stool
-Per CRS- ok to resume Eliquis 5mg BID tonight 05/08/24 and Plavix 75mg daily in am 05/09/24
-Will stop ASA s
Paroxysmal atrial fibrillation/flutter currently in rate controlled Atrial flutter
-Asymptomatic
-Reduce metoprolol succinate [id number] BID to 50mg BID for bradycardia
-Discuss eventual rhythm control options and ablation with his outpatient recreation assistant once he is recovered from surgery
-Hb stable, 10
-Anticoagulation to be resumed today
CAD s/p CABG and PCI 12/2023
-Stable without anginal complaints
-Anticipate Plavix [ PCI 12/2023 ] to be resumed 05/09/24
-Continue statin
-Imdur held for BP- would continue to hold and reassess with his outpatient recreation assistant
HPI: Patient came to [facility] very early this morning with abdominal pain and was admitted with acute cecal volvulus and cardiology has been consulted for possible post-op atrial fibrillation. Patient has a past medical history significant for coronary
artery disease status post CABG and stents, hypertension, hyperlipidemia, paroxysmal atrial fibrillation on chronic anticoagulation with Eliquis. Patient was found to have acute cecal volvulus on imaging. He was also noted to have fever, Tmax
101.4. Patient was taken emergently to the OR and underwent open right colectomy on 04/25/2024. Patient says Afib was diagnosed after he wore a week long heart monitor following PCI in 12/2023. He was noted to have Afib and was started on Eliquis at
that time. He was continued on Plavix as well, but aspirin was stopped when Eliuquis was added. Last dose of Eliquis was 04/24/24 AM. Given he was on anticoagulation he was given Kcentra. Patient denies palpitations post-op. Tele reviewed and it
appears to be baseline artifact on ECG.
Progress Note - Microstrategy Developer
Subjective
Date of Service: May 08, 2024
Seen and examined with son at bedside. Feeling well and tolerating diet. No cardiac complaints
Objective
Labs:
05/08/24 06:48
05/08/24 06:48
Labs
Hgb 10.6 g/dL (13.0-18.0) L 05/08/24 06:48
Hct 32.1 % (39.0-52.0) L 05/08/24 06:48
Plt Count 389 10^3/uL (130-400) 05/08/24 06:48
PT 14.5 Sec (11.4-14.6) 04/25/24 12:56
INR 1.15 04/25/24 12:56
APTT 39.2 Sec (23.4-35.0) H 05/08/24 10:22
Sodium 139 mmol/L (135-145) 05/08/24 06:48
Potassium 4.8 mmol/L (3.5-5.1) 05/08/24 06:48
BUN 5 mg/dl (9-20) L 05/08/24 06:48
Creatinine 0.6 mg/dL (0.7-1.3) L 05/08/24 06:48
Glucose 133 mg/dl (70-99) H 05/08/24 06:48
Vital Signs and I&O:
Vital Signs
Temp Pulse Resp BP Pulse Ox
98.2 F 72 16 104/51 96
05/08/24 11:00 05/08/24 11:00 05/08/24 11:00 05/08/24 11:00 05/08/24 11:00
Vital Signs
Temp Pulse Resp BP Pulse Ox
98.2 F 72 16 104/51 96
05/08/24 11:00 05/08/24 11:00 05/08/24 11:00 05/08/24 11:00 05/08/24 11:00
Intake & Output
05/06/24 05/07/24 05/08/24 05/09/24
06:59 06:59 06:59 06:59
Intake Total 3648 / 3648 3800 / 3800 2890 / 2890
Output Total 1080 / 1080 460 / 460 2190 / 2190
Balance 2568 / 2568 3340 / 3340 700 / 700
Physical Exam
Physical Exam
GEN: No distress, awake, alert, oriented x3
HEENT: mmm
LUNGS: CTA B/L, no wheezes/rales
CV: irregularly irregular positive S1-S2. no murmur
ABD: soft mild incisional tenderness. Incision clean dry and intact. Positive bowel sounds.
EXT: No cyanosis, clubbing, edema
NEURO: Gross non-focal
[2024-05-08 15:20] VITALS: BP 131/59
[2024-05-08 16:49] LABS: Glucose - Point of Care 139 mg/dl (70-99)
[2024-05-08] MEDS: NOVOLOG FLEXPEN-LOW RESISTANCE SC (17:06)
[2024-05-08 19:55] VITALS: BP 126/59
[2024-05-08] MEDS: ELIQUIS 5 MG PO (20:06)
[2024-05-08] MEDS: MELATONIN 5 MG PO (20:07)
[2024-05-08] MEDS: TOPROL XL 50 MG PO (20:07)
[2024-05-08 21:01] LABS: Glucose - Point of Care 154 mg/dl (70-99)
[2024-05-08] MEDS: PAXIL 20 MG PO (21:39)
[2024-05-08] MEDS: BENADRYL 25 MG PO (21:39)
[2024-05-08 23:19] VITALS: BP 112/64
[2024-05-09] MEDS: NORMOSOL-R 1000 IV (02:13)
[2024-05-09 03:30] VITALS: BP 102/52
[2024-05-09 06:00] VITALS: BMI 29.1
[2024-05-09 06:53] LABS: Hematocrit 27.8 % (39.0-52.0); Hemoglobin 9.6 g/dL (13.0-18.0); Mean Corp Hgb Conc. 34.5 g/dL (33.0-37.0); Mean Corpuscular Hgb 31.6 pg (27.0-31.0); Mean Corpuscular Volume 91.4 fL (80.0-94.0); Mean Platelet Volume 9.4 fL (7.4-10.4); Platelet Count 362 10^3/uL (130-400); Red Blood Cell Count 3.04 10^6/uL (4.70-6.10); Red Cell Dist. Width 14.3 % (11.5-14.5); White Blood Cell Count 6.6 10^3/uL (4.8-10.8)
[2024-05-09 07:17] VITALS: BP 113/61
[2024-05-09 07:17] LABS: Glucose - Point of Care 137 mg/dl (70-99)
--- NOTE | 2024-05-09 07:35 | W.PN.HOSP.TC ---
Today's Communication/Plan
-
see bold
Assessment / Plan
Assessment / Plan
Post-op Ileus - 05/03 small bowel follow-through shows resolving ileus versus partial SBO�no discrete transition point identified. Resolving, status post NG tube, removed 05/04. Advanced to low residue on 05/07. Currently tolerating. Discharge when
cleared by colorectal surgery. PT rec HH.
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 Underwent right hemicolectomy 04/25/[address] Jiang, findings of distended and nonperforated ischemic cecum.
Paroxysmal atrial fibrillation -Toprol XL decreased to 50 mg twice a day on 05/08 due to bradycardia. Cleared by colorectal surgery to resume Eliquis 05/08.
Bloody BM w/ associate Hgb drop 05/06
H&H so far stable/trending up since drop
continuing diet as per surgery
Anemia work up notes severe Iron def Anemia with associate Anemia of chronic disease. B12 and Folate non-deficient.
Status post IV iron, will changed to oral iron.
Fever and leukocytosis- Sepsis ruled out. No abscess on CT abd/pelvis 04/29. Blood cx repeated 04/29, negative so far. Completed cefepime and Flagyl from 04/29 through 05/03 per ID. Fever and leukocytosis resolved. ID suspects due to ileus. They
have signed off. Monitor WBC/fever curve.
Does have subcutaneous seroma with drainage in the midline, as noted by surgical service.
History of autoimmune hepatitis
Followed at [place]
Last dose of Imuran was in 2018
AST elevation noted
CAD/CABG - last stented in December.
Follows with utilization manager at [facility]
Resume Plavix on 05/10.
On Imdur 60 mg daily, losartan 50 mg daily - still held due to soft BP
Resumed metoprolol, rosuvastatin 20 mg daily
EKG sinus rhythm with nonspecific ST-T changes
DM2 without hyperglycemia -on Januvia as outpatient. Hemoglobin A1c 7.0%. Continue sliding scale insulin.
Prolonged QTC -magnesium and potassium normal. Repeat EKG 05/03 shows improved QTc. Would continue avoiding Zofran and other QTc prolonging agents.
Essential Hypertension -blood pressure acceptable on only metoprolol. Holding losartan.
Prostate disease -continue finasteride and tamsulosin.
Hyperlipidemia -continue rosuvastatin.
Obesity due to excess calories -weight loss encouraged.
DVT prophylaxis�eliquis
Full code
Total time spent to see the patient on the floor, examine the patient, review data and lab results, discuss treatment plan with patient, nursing staff around 51 minutes.
Physical Exam
General: No acute distress
HEENT: Normocephalic, Atraumatic, EOMI, MMM
Respiratory: Clear to Auscultation bilaterally
Cardiac: Normal S1/S2, Regular Rate and Rhythm
GI: Soft, appropriately tender, midline incision with rik in place, incisions clean/dry/intact
Extremities: No Clubbing, Cyanosis, or Edema
Neuro: Nonfocal/Grossly Intact
Psych: Calm, Cooperative
Derm: No Visible lesions
Anticipated Discharge: Within 24 hours
Subjective/Interval History
-
Date of Service: May 09, 2024
Patient had a dark bowel movement in the morning, almost black. No fever, no vomiting. He is tolerating his diet.
Objective Data
-
Labs:
Laboratory Results
05/09/24
05:30
WBC 6.6
Hgb 9.6 L
Hct 27.8 L
Plt Count 362
Vital Signs:
Vital Signs
Temp Pulse Resp BP Pulse Ox
98.1 F 69 16 102/52 94
05/09/24 03:30 05/09/24 03:30 05/09/24 03:30 05/09/24 03:30 05/09/24 03:30
I&O
05/08/24 05/09/24 05/10/24
06:59 06:59 06:59
Intake Total 2890 / 2890 3240 / 3240
Output Total 2190 / 2190 1300 / 1300
Balance 700 / 700 1939
[2024-05-09] MEDS: NOVOLOG FLEXPEN-LOW RESISTANCE SC (08:35)
[2024-05-09] MEDS: CRESTOR 20 MG PO (08:37)
[2024-05-09] MEDS: PROTONIX IV 40 MG IV (08:37)
[2024-05-09] MEDS: TOPROL XL 50 MG PO ×2 (08:37→21:07)
[2024-05-09] MEDS: FLOMAX 0.400000000000000022 MG PO ×2 (08:37→21:07)
[2024-05-09] MEDS: ELIQUIS 5 MG PO ×2 (08:37→21:07)
[2024-05-09] MEDS: NSS (PRESERVATIVE FREE) 10 ML IV (08:37)
[2024-05-09] MEDS: FEOSOL 325 MG PO (08:37)
[2024-05-09] MEDS: PROSCAR 5 MG PO (08:37)
--- NOTE | 2024-05-09 09:18 | PTCARENOTE ---
pt Out of bed to bathroom w/large amount of dark brown/black liquid stool noted. no blood or red noted. tolerating low residue diet -denies nausea or abdominal discomfort. specimen container placed to allow heme test of next BM. pt aware.
--- NOTE | 2024-05-09 10:49 | W.PN.CRS1 ---
Today's Communication / Plan
-
monitor bowel movements
repeat cbc at noon
no plavix just yet
Assessment/Plan
-
POD #15 ex lap, right hemicolectomy; c/b A-fib with RVR
Wbc 6.6, Hb 9.6 from 10.6
� Hgb lower today, will repeat labs at noon. Eliquis restarted yesterday. Continue to monitor for any recurrent bleeding. Hold on Plavix for now.
- Afib with RVR, cont metop, controlled. Cards following.
� Continue low residue diet
� Continue pain control with Tylenol, Dilaudid/Roxicodone as needed
- S/p 3 days postop of antibiotics, monitor off per ID
- Cont home meds, ok for PO meds
�OOB/IS, recommend PT
� Appreciate hospitalist
- Dispo- continue to monitor for bleeding today
- D/C IVFs
Subjective Data
Procedure
04/25/2024- open right colectomy for cecal volvulus
Subjective Data
Date of Service: May 09, 2024
Patient states he had no issues overnight. He has no nausea or vomiting. His pain is controlled. He had black stool this morning.
Objective Data
-
Vital Signs
Temp Pulse Resp BP Pulse Ox
98 F 80 18 113/61 90
05/09/24 07:17 05/09/24 08:37 05/09/24 07:17 05/09/24 08:37 05/09/24 07:17
Intake & Output
05/08/24 05/09/24 05/10/24
06:59 06:59 06:59
Intake Total 2890 / 2890 3240 / 3240
Output Total 2190 / 2190 1300 / 1300
Balance 700 / 700 194 / 194
Intake:
Oral fluids 1820 / 1820 1480 / 1480
IV fluids (Total) 960 / 960 1760 / 1760
IV piggybacks 110 / 110
Output:
Urine, Voided 2189 / 2189 1300 / 1300
Other:
Number of approximated MODERATE 1 1
amounts of urine
Number of approximated LARGE 1 1
amounts of urine
Lab Results
05/08/24 06:48
Physical Exam
-
General: No Acute Distress and AOx3
Abdomen: Soft
Skin: Warm and Dry
Incision: Clear, Dry, Intact
[2024-05-09 11:07] VITALS: BP 106/72
--- NOTE | 2024-05-09 11:29 | W.PN.CARDCBS ---
Addendum entered and electronically signed by Gabriella Quintanilla DO 05/09/24 17:40:
Communicated with surgery. Repeat hemoglobin stable and they are okay with resuming Plavix as of tomorrow. Order placed.
Original Note:
Today's Communication / Plan
-
Monitor H&H postop with starting anticoagulation
We will follow peripherally please keep us informed of his status
He will follow with his virtual complaint evaluation supervisor following this hospitalization
Impression / Plan
-
Primary care physician: Bora Garcia
Outpatient complaint evaluation supervisor: Dr. Gael Mason at [facility] [phone]
Impression:
Presents 04/25/2024 with acute abdominal pain x 1 day
Acute cecal volvulus
s/p emergent right hemicolectomy 04/25/2024
Fever
Leukocytosis
Paroxysmal atrial fibrillation
recurrence of Afib 04/27/24
Chronic anticoagulation on Eliquis
CAD
s/p CABG at [place] 2015
s/p PCI at [facility] 12/2023
DM
Autoimmune hepatitis off Imuran since 2017
HTN
BPH
HLD
Chronic low back pain
nephrolithiasis hx lithotripsy
Right RTC repair
left shoulder reverse total arthroplasty
Plan:
Presented 04/25/2024 with acute cecal volvulus.
-Status post emergent open right hemicolectomy 04/25/2024, patient given Kcentra prior to emergent right hemicolectomy
-Had IV Lasix 20mg x2 doses [04/28-] for post op fluid retention; no evidence of overt volume overload and no need for diuretics
-Post operative course complicated by bloody stool which has resolved; no transfusion
-Was initially on IV heparin gtt which was held 2/2 bloody stool
-Per CRS- resumed Eliquis 5mg BID 05/08/24
-Slight downward drift in hemoglobin today. Will hold resuming Plavix 75 mg once daily for now. Repeat H&H later today.
-Stopped aspirin
Paroxysmal atrial fibrillation/flutter currently in rate controlled Atrial flutter
-Asymptomatic
-Reduce metoprolol succinate [id number] BID to 50mg BID for bradycardia
-Discuss eventual rhythm control options and ablation with his outpatient complaint evaluation supervisor at [facility] once he is recovered from surgery
-Monitor hemoglobin as he is now back on Eliquis
CAD s/p CABG and PCI 12/2023
-Stable without anginal complaints
-Given slight drift downward in hemoglobin and reports of dark stool will continue to hold Plavix [ PCI 12/2023 ]
-Continue statin
-Imdur held for BP- would continue to hold and reassess with his outpatient complaint evaluation supervisor
Patient understands to make a follow-up appointment with his [facility] complaint evaluation supervisor Dr. Mason following this hospitalization
Please keep our service informed regarding postoperative blood loss anemia and timing to resume Plavix
Will follow along peripherally
HPI: Patient came to [facility] very early this morning with abdominal pain and was admitted with acute cecal volvulus and cardiology has been consulted for possible post-op atrial fibrillation. Patient has a past medical history significant for coronary
artery disease status post CABG and stents, hypertension, hyperlipidemia, paroxysmal atrial fibrillation on chronic anticoagulation with Eliquis. Patient was found to have acute cecal volvulus on imaging. He was also noted to have fever, Tmax
101.4. Patient was taken emergently to the OR and underwent open right colectomy on 04/25/2024. Patient says Afib was diagnosed after he wore a week long heart monitor following PCI in 12/2023. He was noted to have Afib and was started on Eliquis at
that time. He was continued on Plavix as well, but aspirin was stopped when Eliuquis was added. Last dose of Eliquis was 04/24/24 AM. Given he was on anticoagulation he was given Kcentra. Patient denies palpitations post-op. Tele reviewed and it
appears to be baseline artifact on ECG.
Progress Note - Fugitive Investigator
Subjective
Date of Service: May 09, 2024
Patient seen and examined ambulating around room and overall feeling better. Had some dark stools with slightly decreased hemoglobin with plans for repeat H&H later today. No chest pain or pressure. No palpitations. Otherwise in good spirits
Objective
Labs:
05/08/24 06:48
Labs
Hgb 9.6 g/dL (13.0-18.0) L 05/09/24 05:30
Hct 27.8 % (39.0-52.0) L 05/09/24 05:30
Plt Count 362 10^3/uL (130-400) 05/09/24 05:30
PT 14.5 Sec (11.4-14.6) 04/25/24 12:56
INR 1.15 04/25/24 12:56
APTT 39.2 Sec (23.4-35.0) H 05/08/24 10:22
Sodium 139 mmol/L (135-145) 05/08/24 06:48
Potassium 4.8 mmol/L (3.5-5.1) 05/08/24 06:48
BUN 5 mg/dl (9-20) L 05/08/24 06:48
Creatinine 0.6 mg/dL (0.7-1.3) L 05/08/24 06:48
Glucose 133 mg/dl (70-99) H 05/08/24 06:48
Vital Signs and I&O:
Vital Signs
Temp Pulse Resp BP Pulse Ox
98 F 80 18 113/61 90
05/09/24 07:17 05/09/24 08:37 05/09/24 07:17 05/09/24 08:37 05/09/24 07:17
Vital Signs
Temp Pulse Resp BP Pulse Ox
98 F 80 18 113/61 90
05/09/24 07:17 05/09/24 08:37 05/09/24 07:17 05/09/24 08:37 05/09/24 07:17
Intake & Output
05/07/24 05/08/24 05/09/24 05/10/24
06:59 06:59 06:59 06:59
Intake Total 3800 / 3800 2890 / 2890 3240 / 3240
Output Total 460 / 460 2190 / 2190 1300 / 1300
Balance 3340 / 3340 700 / 700 1940 / 1940
Physical Exam
Physical Exam
GEN: No distress, awake, alert, oriented x3
HEENT: mmm
LUNGS: CTA B/L, no wheezes/rales
CV: irregularly irregular positive S1-S2. no murmur
ABD: soft mild incisional tenderness. Incision clean dry and intact. Positive bowel sounds.
EXT: No cyanosis, clubbing, edema
NEURO: Gross non-focal
[2024-05-09 11:34] LABS: Glucose - Point of Care 182 mg/dl (70-99)
[2024-05-09] MEDS: NOVOLOG FLEXPEN-LOW RESISTANCE 1 UNITS SC ×2 (11:47→18:09)
[2024-05-09 12:24] LABS: % Basophils 0.6 % (0-2); % Eosinophils 5.5 % (0-6); % Immature Granulocytes 0.5 % (0-0.5); % Lymphocytes 28.1 % (20.5-51.1); % Monocytes 8.9 % (1.7-9.3); % Neutrophils 56.4 % (42.2-75.2); Absolute Eosinophils 0.3 10^3/uL (0-0.7); Absolute Lymphocytes 1.7 10^3/uL (1.2-3.4); Absolute Monocytes 0.6 10^3/uL (0.1-0.6); Absolute Neutrophils 3.5 10^3/uL (1.4-6.5); Hematocrit 28.7 % (39.0-52.0); Hemoglobin 9.9 g/dL (13.0-18.0); Mean Corp Hgb Conc. 34.5 g/dL (33.0-37.0); Mean Corpuscular Hgb 31.1 pg (27.0-31.0); Mean Corpuscular Volume 90.3 fL (80.0-94.0); Mean Platelet Volume 9.2 fL (7.4-10.4); Nucleated Red Blood Cells % 0 % (-); Platelet Count 376 10^3/uL (130-400); Red Blood Cell Count 3.18 10^6/uL (4.70-6.10); Red Cell Dist. Width 14.4 % (11.5-14.5); White Blood Cell Count 6.2 10^3/uL (4.8-10.8)
--- NOTE | 2024-05-09 13:42 | CM ---
Reviewed the chart notes and spoke with the patient at the bedside. The patient continues with low residual diet. Plan remains for discharge to his son's home. CM continues to be available to patient/family and is monitoring medical plan for
needs at discharge.
Plan: Discharge to son's home when medically stable. No additional needs anticipated.
[2024-05-09 15:13] VITALS: BP 114/61
[2024-05-09] MEDS: NEURONTIN 100 MG PO ×2 (15:33→21:07)
[2024-05-09 17:13] LABS: Glucose - Point of Care 166 mg/dl (70-99)
[2024-05-09 19:51] VITALS: BP 116/70
[2024-05-09] MEDS: MELATONIN 5 MG PO (21:07)
[2024-05-09] MEDS: BENADRYL 25 MG PO (21:07)
[2024-05-09] MEDS: PAXIL 20 MG PO (21:08)
[2024-05-09 22:00] LABS: Glucose - Point of Care 115 mg/dl (70-99)
[2024-05-09 23:24] VITALS: BP 111/64
[2024-05-10 03:27] VITALS: BP 92/65
[2024-05-10 06:00] VITALS: BMI 28.5
--- NOTE | 2024-05-10 06:13 | W.PN.HOSP.TC ---
Today's Communication/Plan
-
discharge
Assessment / Plan
Assessment / Plan
Post-op Ileus - 05/03 small bowel follow-through shows resolving ileus versus partial SBO�no discrete transition point identified. Resolving, status post NG tube, removed 05/04. Advanced to low residue on 05/07. Currently tolerating. Cleared for
discharge as per colorectal surgery 05/10. PT rec HH 05/04 patient however has improved since then ambulating without need assist devices. Home Services offered, patient declines.
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 Underwent right hemicolectomy 04/25/[address] Jiang, findings of distended and nonperforated ischemic cecum.
Paroxysmal atrial fibrillation -Toprol XL decreased to 50 mg twice a day on 05/08 due to bradycardia. Cleared by colorectal surgery to resume Eliquis 05/08.
Bloody BM w/ associate Hgb drop 05/06
H&H so far stable/trending up since drop
continuing diet as per surgery
Anemia work up notes severe Iron def Anemia with associate Anemia of chronic disease. B12 and Folate non-deficient.
Status post IV iron, converted oral iron. H&H stable
Fever and leukocytosis- Sepsis ruled out. No abscess on CT abd/pelvis 04/29. Blood cx repeated 04/29, negative so far. Completed cefepime and Flagyl from 04/29 through 05/03 per ID. Fever and leukocytosis resolved. ID suspects due to ileus. They
have signed off. Consistently afebrile, wbl wnl.
Does have subcutaneous seroma with drainage in the midline, resolved
History of autoimmune hepatitis
Followed at [place]
Last dose of Imuran was in 2018
AST elevation noted
CAD/CABG - last stented in December.
Follows with flame degreaser at [place]
Resume Plavix on 05/10.
On Imdur 60 mg daily, losartan 50 mg daily - on hold due to soft BP
Resumed metoprolol, rosuvastatin 20 mg daily
EKG sinus rhythm with nonspecific ST-T changes
DM2 without hyperglycemia -on Januvia as outpatient. Hemoglobin A1c 7.0%. Continue sliding scale insulin.
Prolonged QTC -magnesium and potassium normal. Repeat EKG 05/03 shows improved QTc. Would continue avoiding Zofran and other QTc prolonging agents.
Essential Hypertension -blood pressure acceptable on only metoprolol. Holding losartan.
Prostate disease -continue finasteride and tamsulosin.
Hyperlipidemia -continue rosuvastatin.
Obesity due to excess calories -weight loss encouraged.
DVT prophylaxis�eliquis
Full code
Medically stable for discharge home with outpatient follow up recommendations
discussed with patient and patient's son Hernando
Total Time Preparing Discharge __50 minutes including examination of the patient, summary of the hospital stay, instructions for continuing care to all relevant caregivers; and preparation of discharge records, prescriptions, and referral
forms if necessary.
Physical Exam
General: No acute distress
HEENT: Normocephalic, Atraumatic, EOMI, MMM
Respiratory: Clear to Auscultation bilaterally
Cardiac: Normal S1/S2, Regular Rate and Rhythm
GI: Soft, rik removed, incision site clean/dry/intact
Extremities: No Clubbing, Cyanosis, or Edema
Neuro: Nonfocal/Grossly Intact
Psych: Calm, Cooperative
Derm: No Visible lesions
Anticipated Discharge: Today
Subjective/Interval History
-
Date of Service: May 10, 2024
Seen and examined at bedside in no acute distress ambulating without issues, no assist device necessary. Patient reports overall feeling well. Denies new acute issues. Eager to go home. Son Hernando present during evaluation.
Objective Data
-
Vital Signs:
Vital Signs
Temp Pulse Resp BP Pulse Ox
98.8 F 78 16 92/65 96
05/10/24 03:27 05/10/24 03:27 05/10/24 03:27 05/10/24 03:27 05/10/24 03:27
I&O
05/08/24 05/09/24 05/10/24
06:59 06:59 06:59
Intake Total 2890 / 2890 3240 / 3240 960 / 960
Output Total 2190 / 2190 1300 / 1300 650 / 650
Balance 700 / 700 1940 / 1940 310 / 310
[2024-05-10 07:32] VITALS: BP 89/53
[2024-05-10 07:33] LABS: Glucose - Point of Care 157 mg/dl (70-99)
[2024-05-10] MEDS: TOPROL XL 50 MG PO (08:12)
[2024-05-10] MEDS: NEURONTIN 100 MG PO (08:12)
[2024-05-10] MEDS: FEOSOL 325 MG PO (08:12)
[2024-05-10] MEDS: CRESTOR 20 MG PO (08:12)
[2024-05-10] MEDS: ELIQUIS 5 MG PO (08:12)
[2024-05-10] MEDS: PLAVIX 75 MG PO (08:12)
[2024-05-10] MEDS: FLOMAX 0.400000000000000022 MG PO (08:12)
[2024-05-10] MEDS: PROTONIX IV 40 MG IV (08:13)
[2024-05-10] MEDS: PROSCAR 5 MG PO (08:13)
[2024-05-10] MEDS: NOVOLOG FLEXPEN-LOW RESISTANCE 1 UNITS SC ×2 (08:13→11:11)
[2024-05-10] MEDS: NSS (PRESERVATIVE FREE) 10 ML IV (08:13)
[2024-05-10 08:31] LABS: % Basophils 0.7 % (0-2); % Eosinophils 6.2 % (0-6); % Immature Granulocytes 0.6 % (0-0.5); % Lymphocytes 26.7 % (20.5-51.1); % Monocytes 10.5 % (1.7-9.3); % Neutrophils 55.3 % (42.2-75.2); Absolute Basophils 0.1 10^3/uL (0-0.2); Absolute Eosinophils 0.4 10^3/uL (0-0.7); Absolute Lymphocytes 1.8 10^3/uL (1.2-3.4); Absolute Monocytes 0.7 10^3/uL (0.1-0.6); Absolute Neutrophils 3.7 10^3/uL (1.4-6.5); Hematocrit 27.8 % (39.0-52.0); Hemoglobin 9.4 g/dL (13.0-18.0); Mean Corp Hgb Conc. 33.8 g/dL (33.0-37.0); Mean Corpuscular Hgb 31.1 pg (27.0-31.0); Mean Corpuscular Volume 92.1 fL (80.0-94.0); Mean Platelet Volume 9.2 fL (7.4-10.4); Nucleated Red Blood Cells % 0 % (-); Platelet Count 372 10^3/uL (130-400); Red Blood Cell Count 3.02 10^6/uL (4.70-6.10); Red Cell Dist. Width 14.6 % (11.5-14.5); White Blood Cell Count 6.7 10^3/uL (4.8-10.8)
--- NOTE | 2024-05-10 10:36 | W.PN.CRS1 ---
Today's Communication / Plan
-
okay for d/c from our perspective
rik removed
plavix restarted
Assessment/Plan
-
POD #16 ex lap, right hemicolectomy; c/b A-fib with RVR
Wbc 6.7, Hb 9.4 from 9.6
� Plavix restarted this AM.
- Afib with RVR, cont metop, controlled. Cards following.
� Continue low residue diet
� Continue pain control with Tylenol, Dilaudid/Roxicodone as needed
- S/p 3 days postop of antibiotics, monitor off per ID
- Cont home meds, ok for PO meds
�OOB/IS, recommend PT
� Appreciate hospitalist
- Dispo- okay for discharge from our perspective. Rik removed. Follow up with Dr. Jiang in the office in 2 weeks.
Subjective Data
Procedure
04/25/2024- open right colectomy for cecal volvulus
Subjective Data
Date of Service: May 10, 2024
Patient states he feels well. He has bowel movements with no bleeding. He denies abdominal pain. He has no nausea or vomiting.
Objective Data
-
Vital Signs
Temp Pulse Resp BP Pulse Ox
98.4 F 67 16 100/56 94
05/10/24 07:32 05/10/24 08:12 05/10/24 07:32 05/10/24 08:12 05/10/24 08:00
Intake & Output
05/09/24 05/10/24 05/11/24
06:59 06:59 06:59
Intake Total 3240 / 3240 1440 / 1440
Output Total 1300 / 1300 650 / 650
Balance 1939 / 1940 790 / 790
Intake:
Oral fluids 1480 / 1480 1440 / 1440
IV fluids (Total) 176 / 176
Output:
Urine, Voided 1300 / 1300 650 / 650
Other:
Number of approximated MODERATE 1 2
amounts of urine
Number of approximated LARGE 1
amounts of urine
Lab Results
05/10/24 08:23
05/08/24 06:48
Physical Exam
-
General: No Acute Distress and AOx3
Abdomen: Soft, Non Distended and Non Tender
Skin: Warm and Dry
Incision: Clear, Dry, Intact (rik )
--- NOTE | 2024-05-10 10:53 | CM ---
Reviewed the chart notes and spoke with the patient at the bedside. IMM signed and placed on chart. Patient anticipates being discharged to his son's home with no other needs identified at this time. CM continues to be available to patient/family
and is monitoring medical plan for needs at discharge.
Plan: Discharge to son's home when medically stable.
[2024-05-10 11:04] VITALS: BP 97/57
[2024-05-10 11:12] LABS: Glucose - Point of Care 189 mg/dl (70-99)
--- NOTE | 2024-05-10 12:43 | W.DCSUMMARY ---
Discharge Summary
Discharge Data
Date of Admission: 04/25/24
Date of Discharge: 05/10/24
-
Pending Results: No
Discharge Plan
-
Patient Disposition: Home (Routine Discharge)
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
Chronic Disease, Coronary Artery disease history of CABG and Stent, Prolonged QT since improved
Condition: Fair
Diet: Low Residue
Additional Diets: Continue with Low residue diet. Follow up with surgeon in 2 weeks to determine when safe to advance.
Activity: No strenuous activity
Additional Activity: No lifting over 10lbs (gallon of milk)
Driving Restrictions: As prior to admission
Bathing Restrictions: None
Blood Work: Please repeat CBC and BMP with primary care provider in 1 week of discharge. Repeat Iron studies with primary care provider in 1 month of discharge.
Others Tests: Please repeat EKG with primary care provider or Neurosurgical Nurse Practitioner to follow up on prolonged QT since improved on discharge.
Wound Care: Okay to leave wound uncovered. Do not pick at incision.
Activity Restrictions/Additional Instructions:
Please follow up with your primary care provider and Neurosurgical Nurse Practitioner in 1 week of discharge and follow up with surgeon in 2 weeks of discharge.
Iron supplementation has been started for iron deficiency and anemia of chronic disease.
Home Metoprolol has been increased from daily to twice a day for better control atrial fibrillation.
Losartan and Imdur have been placed on hold due to soft low pressures though normotensive.
Please take medications as prescribed/recommended and follow up with primary care provider and/or other healthcare provider involved in your care for refills and/or further adjustment to your medication regimen as necessary.
Instructions: Low Fiber Diet
Referrals:
Kenrick Jiang MD [Active] - in two weeks
Bora Garcia DO [Family Provider] - in one week
Prescriptions:
New
ferrous sulfate [FeroSul] 325 mg (65 mg iron) Tablet
325 mg PO DAILY 30 Days Qty: 30 0RF
Continued
clopidogrel 75 mg Tablet
75 mg PO DAILY
tamsulosin 0.4 mg Capsule
0.4 mg PO BID
paroxetine HCl 20 mg Tablet
20 mg PO HS
finasteride 5 mg Tablet
5 mg PO DAILY
rosuvastatin 20 mg Tablet
20 mg PO DAILY
Januvia 100 mg Tablet
100 mg PO DAILY
Eliquis 5 mg Tablet
5 mg PO BID
Changed
metoprolol succinate 50 mg Tablet Extended Release 24 Hr
50 mg PO BID 30 Days Qty: 60 0RF
Held
losartan 50 mg Tablet
50 mg PO DAILY
Hold Instructions: Follow up with primary care provider and/or Cardiology in 1 week of discharge to determine when safe to resume. On hold due to soft low normotensive pressures.
isosorbide mononitrate 60 mg Tablet Extended Release 24 Hr
60 mg PO DAILY
Hold Instructions: Follow up with primary care provider and/or Cardiology in 1 week of discharge to determine when safe to resume. On hold due to soft low normotensive pressures.
Discharge Orders:
Discharge Patient (As Directed); Ordered 05/10/24
Ordered By: Rene Chowdhury
Discharge Date and Time
Print Language: URUGUAYAN
== END 2024-05-10 13:15 | disposition home or self-care (01) | DRG 329 ==
LOC: 2 SOUTH 04:41
PROVIDERS: Family Medicine; Hospitalist; Nurse Practitioner Family; Physician Assistant; Surgery; ADMITTING PHYSICIAN Internal Medicine; ATTENDING PHYSICIAN Internal Medicine; CONSULT PHYSICIAN Internal Medicine Cardiovascular Disease; CONSULT PHYSICIAN Internal Medicine Infectious Disease; CONSULT PHYSICIAN Surgery; EMERGENCY PHYSICIAN Emergency Medicine; FAMILY PHYSICIAN Family Medicine
PROC: 0DTF0ZZ Resection of Right Large Intestine, Open Approach (ICD-10-PCS; 2024-04-25)
DX: K56.2 Volvulus (principal); K55.039 Acute (reversible) ischemia of large intestine, extent unspecified; K91.89 Other postprocedural complications and disorders of digestive system; J98.11 Atelectasis; K56.7 Ileus, unspecified; Y83.9 Surgical procedure, unspecified as the cause of abnormal reaction of the patient, or of later complication, without mention of misadventure at the time of the procedure; I48.0 Paroxysmal atrial fibrillation; E11.9 Type 2 diabetes mellitus without complications; I10 Essential (primary) hypertension; I25.10 Atherosclerotic heart disease of native coronary artery without angina pectoris; Z79.84 Long term (current) use of oral hypoglycemic drugs; Z79.01 Long term (current) use of anticoagulants; Z95.1 Presence of aortocoronary bypass graft
CPT/HCPCS: 88307; 71045; 74177; 74250; 80048; 80053; 82607; 82746; 82962; 83036; 83540; 83550; 83605; 83690; 83735; 83880; 84100; 84484; 85025; 85027; 85610; 85730; 87040; 87811; 93005; 96374; 96375; 97116; 97163; 97530; 99285; J2916; J7168; Q9967

== ENCOUNTER → 2024-10-10 14:10 | Outpatient (REF) | payer MEDICARE, SELFPAY | LOC: RAD 14:10 | PROVIDERS: ATTENDING PHYSICIAN Nurse Practitioner Family | DX: R06.02 Shortness of breath (principal) | CPT/HCPCS: 71046 ==

== ENCOUNTER 2025-04-19 06:19 | Day surgery (SDC) | payer MEDICARE, SELFPAY ==
[2025-04-19 07:21] LABS: Glucose - Point of Care 163 mg/dl (70-99)
== END 2025-04-19 08:58 | disposition home or self-care (01) ==
LOC: GI 06:19
PROVIDERS: ATTENDING PHYSICIAN Surgery
DX: Z12.11 Encounter for screening for malignant neoplasm of colon (principal); K57.30 Diverticulosis of large intestine without perforation or abscess without bleeding; D12.5 Benign neoplasm of sigmoid colon; Z98.0 Intestinal bypass and anastomosis status; Z86.0100 Personal history of colon polyps, unspecified
CPT/HCPCS: 45385; 88305; 82962

== ENCOUNTER → 2025-05-09 08:56 | Outpatient (REF) | payer MEDICARE, SELFPAY ==
[2025-05-09 11:26] LABS: Hematocrit 35.6 % (39.0-52.0); Hemoglobin 11.9 g/dL (13.0-18.0); Mean Corp Hgb Conc. 33.4 g/dL (33.0-37.0); Mean Corpuscular Hgb 30.1 pg (27.0-31.0); Mean Corpuscular Volume 90.1 fL (80.0-94.0); Mean Platelet Volume 9.3 fL (7.4-10.4); Platelet Count 406 10^3/uL (130-400); Red Blood Cell Count 3.95 10^6/uL (4.70-6.10); Red Cell Dist. Width 13.8 % (11.5-14.5); White Blood Cell Count 7.4 10^3/uL (4.8-10.8)
[2025-05-09 12:23] LABS: Blood Urea Nitrogen 18 mg/dl (9-20); Calcium 8.9 mg/dl (8.4-10.2); Carbon Dioxide 26 mmol/L (22-30); Chloride 108 mmol/L (98-107); Glucose 158 mg/dl (70-99); Sodium 140 mmol/L (135-145); eGFR > 60.00
== END ==
LOC: SDSPAT 08:56
PROVIDERS: ATTENDING PHYSICIAN Surgery; FAMILY PHYSICIAN Family Medicine
DX: Z01.818 Encounter for other preprocedural examination (principal)
CPT/HCPCS: 36415; 80048; 85027

== ENCOUNTER → 2025-05-11 09:03 | Outpatient (REF) | payer MEDICARE, SELFPAY | LOC: RAD 09:03 | PROVIDERS: ATTENDING PHYSICIAN Surgery; FAMILY PHYSICIAN Family Medicine | DX: K43.2 Incisional hernia without obstruction or gangrene (principal) | CPT/HCPCS: 74177; Q9967 ==

== ENCOUNTER 2025-05-15 06:33 | Day surgery (SDC) | payer MEDICARE, SELFPAY ==
[2025-05-09 13:38] VITALS: BMI 27.5
[2025-05-15] VITALS (11 sets, daily range): BP systolic 25–143; BP diastolic 49–70; BMI 27.5
[2025-05-15 11:19] LABS: Glucose - Point of Care 144 mg/dl (70-99)
[2025-05-15] MEDS: TYLENOL 1000 MG PO (11:24)
[2025-05-15] MEDS: NORMOSOL-R/PLASMALYTE-A 1000 IV (11:24)
--- NOTE | 2025-05-15 12:31 | HP.FOC2 ---
Focused History & Physical
Chief Complaint
HPI:
Chief Complaint: Incisional hernias
HPI / Indication for Planned Procedure: Patient is a 80-year-old male recently seen in outpatient surgical evaluation secondary to history of swelling along his midline laparotomy surgical scar. He initially noticed this a few months after his
recent laparotomy, right colectomy for cecal volvulus on 04/25/2024. The hernia has increased in size and he has an awareness of the hernia being present. Recent CT imaging confirmed the presence of multiple midline incisional hernias essentially
spanning most of the length of his previous laparotomy surgical scar. He presents today for scheduled operative correction.
Relevant Past Medical History: Other (CAD with history of MO/coronary stent, hypertension, hyperlipidemia, A-fib, BPH, type 2 diabetes)
Relevant Social History: Negative
Relevant Family History: Negative
Relevant Past Surgical History: Positive for (Left shoulder replacement, right shoulder rotator cuff repair, CABG x 3, cardiac stent, ex lap right hemicolectomy)
Review of Systems
Review of Pertinent Systems: All Systems Negative
Medication
See Medication form for detailed medications: Yes
Medication List (including Herbals & OTC):
apixaban 5 mg tablet (Eliquis) 2.5 mg PO BID 04/25/24
paroxetine HCl 20 mg tablet 20 mg PO HS 04/25/24
rosuvastatin 20 mg tablet 20 mg PO DAILY 04/25/24
sitagliptin phosphate 100 mg tablet (Januvia) 100 mg PO DAILY 04/25/24
aspirin 81 mg tablet 81 mg PO DAILY 05/08/25
metoprolol succinate 25 mg tablet,extended release 24 hr 25 mg PO . DAILY IN P.M. 05/08/25
metoprolol succinate 50 mg tablet,extended release 24 hr 50 mg PO .DAILY IN A.M. 05/08/25
acetaminophen 500 mg tablet 1,000 mg PO Q6H PRN pain 05/15/25
furosemide 40 mg tablet (Lasix) 40 mg PO ONCE PRN fluid retention 05/15/25
nitroglycerin 0.4 mg sublingual tablet 0.4 mg sublingual Q5-15M PRN chest pain 05/15/25
potassium 20 mg chewable tablet 20 mg PO ONCE PRN with lasix for fluid retention 05/15/25
Medications Reviewed: Yes
Allergies and Reactions
Patient has Allergies: Yes
Noted Allergies and Reactions:
Allergy/AdvReac Type Severity Reaction Status Date / Time
Penicillins Allergy hives age Unverified 05/15/25 11:00
5;
tolerated
cephalosporins
Pertinent Physical Exam
All Other Systems: Negative
Head/Neck: Normal
Lungs: Normal
Heart: Normal
Abdomen: Other (Midline laparotomy surgical scar with multiple incisional hernias, reducible)
Extremities: Normal
Neurological: Normal
Diagnosis / Assessment
80-year-old male presenting for scheduled operative correction incisional hernias
Plan / Procedure
Open incisional hernia repair with mesh; retrorectus
Anesthesia/Sedation to be done by Anesthesia Provider: Yes
--- NOTE | 2025-05-15 12:34 | W.SUR.PREOP ---
Pre-Operative Surgical Note
-
I have examined this patient prior to the performance of the scheduled procedure.
The patient's condition is unchanged from the time of the current History and
Physical and the patient is able to undergo the scheduled procedure.
--- NOTE | 2025-05-15 16:44 | W.IMMPOSTOP ---
Addendum entered and electronically signed by Meño Mccarthy MD 05/15/25 17:06:
#[id number]
Original Note:
Surgical Immed Post Op Note
-
Primary Surgeon: Meño Mccarthy MD
Assisting Surgeon: Shanika Marte PA-c
Pre-op Diagnosis: Incisional hernias
Post-op Diagnosis: Incisional hernias - 12cm
Procedure Performed: Open retrorectus mesh repair incisional hernias
Anesthesia Type: GETA + 0.25% Marcaine fascial/subcutaneous incisional block
Specimen / Cultures: none
Estimated Blood Loss: 20mL
Complications: none immediate
Operative Findings: multiple midline incisional hernias from epigastric area to umbilicus spanning vertical length of 12cm and width of up to 4cm. retrorectus mesh repair - bard soft mesh 30cm x 15cm. peritoneal closure with 2-0 PDS STRATAFIX
spiral. Anterior rectus sheath/fascial closure with #1 PDS STRATAFIX symmetric. No adhesions to abdominal wall/hernia sacs. Small bowel run -no intra-abdominal adhesions to small bowel either. Widely patent ileocolic anastomosis in the right
upper quadrant.
Drains: 19 Jonnie located in the retrorectus space
The assistance of Shanika Marte PA-C was required due to the complexity of the procedure. During the procedure Shanika Centeno PA-C assisted with retraction for exposure and closure of the incision site. I was present for the entirety of the operative
procedure
[2025-05-15 16:58] LABS: Glucose - Point of Care 162 mg/dl (70-99)
[2025-05-15] MEDS: NSS 1000 IV (17:59)
[2025-05-15] MEDS: TOPROL XL 25 MG PO (18:23)
--- NOTE | 2025-05-15 18:28 | PTCARENOTE ---
Pt arrived to [facility] from PACU in a bed with a midline incision AGENT BASED MODELER with glue. Right ANTHONY with sanguineous drainage; dressing c/d/i. Gustafson to be removed POD #1 with yellow output. IVF hung at 100cc. Son at bedside. Admission questions answered. Care
ongoing.
[2025-05-15 21:02] LABS: Glucose - Point of Care 246 mg/dl (70-99)
[2025-05-15] MEDS: PAXIL 20 MG PO (21:59)
[2025-05-16 03:00] VITALS: BP 113/51
[2025-05-16] MEDS: ROXICODONE 5 MG PO ×2 (03:16→10:43)
[2025-05-16] MEDS: NSS 1000 IV (03:55)
[2025-05-16 06:09] LABS: Hematocrit 34.2 % (39.0-52.0); Hemoglobin 11.5 g/dL (13.0-18.0); Mean Corp Hgb Conc. 33.6 g/dL (33.0-37.0); Mean Corpuscular Volume 90.5 fL (80.0-94.0); Platelet Count 314 10^3/uL (130-400); Red Cell Dist. Width 13.7 % (11.5-14.5)
[2025-05-16 06:34] LABS: Blood Urea Nitrogen 14 mg/dl (9-20); Calcium 8.3 mg/dl (8.4-10.2); Carbon Dioxide 25 mmol/L (22-30); Chloride 106 mmol/L (98-107); Estimated Creatinine Clearance 93 ml/min; Glucose 177 mg/dl (70-99); Potassium 4.9 mmol/L (3.5-5.1); Sodium 138 mmol/L (135-145); eGFR > 60.00
--- NOTE | 2025-05-16 07:01 | W.PN.GS2 ---
Today's Communication / Plan
-
`
Assessment / Plan
-
Assessment: 80 y/o male POD#1 s/p open retrorectus mesh repair incisional hernias (12cm)
AFVSS
doing well this AM, expected post op pain - controlled, ANTHONY outputs a bit sanguinous but typical for initially post op
Plan: multimodal pain control options
ADA diet but cautioned to just go slow with portion sized awaiting return of GI function post op
OOBTC/Ambulate today and encourage IS use
HTN/Afib - metoprolol; eliquis on hold for 72hrs post op
DM II - accu checks, SSI low, and resume jenuvia
maintain ANTHONY
horn out - DTV
lovenox/scds/ambulation for VTEp
dispo: case management consult for home VN - drain checks if patient wants
d/c home likely either in PM or tomorrow pending ambulation, pain control and tolerance of PO intake - monitoring
Subjective Data
-
Date of Service: May 16, 2025
pt seen and examined
pain controlled
no nausea
no flatus yet
Objective Data
-
Intake and Output
05/15/25 05/16/25 05/17/25
06:59 06:59 06:59
Intake Total 1880 / 1880
Output Total 1135 / 1135
Balance 745 / 745
Intake:
Oral fluids 480 / 480
IV fluids (Total) 1400 / 1400
normasol 100 / 100
Output:
Drain Output (Total) 110 / 110
Right Lower Abdomen Sebastien- 110 / 110
Espinoza
Urine, Horn 1025 / 1025
Vital Signs
Temp Pulse Resp BP Pulse Ox
98.5 F 58 16 113/51 96
05/16/25 03:00 07/01/25 03:00 05/16/25 03:00 05/16/25 03:00 05/16/25 03:00
Lab Results
05/16/25 05:24
05/16/25 05:24
Calcium 8.3 mg/dl (8.4-10.2) L 05/16/25 05:24
Physical Exam
-
NAD AAOx3
ABD: soft, ND, mild TTP - generalized
incision with glue dressing
ANTHONY with sanguinous drainage
[2025-05-16 07:25] VITALS: BP 108/51
[2025-05-16 08:04] LABS: Glucose - Point of Care 165 mg/dl (70-99)
[2025-05-16] MEDS: LOW STRENGTH ASPIRIN 81 MG PO (08:12)
[2025-05-16] MEDS: JANUVIA 100 MG PO (08:13)
[2025-05-16] MEDS: NOVOLOG FLEXPEN-LOW RESISTANCE 1 UNITS SC (08:13)
[2025-05-16 08:22] VITALS: BP 123/58
[2025-05-16] MEDS: TOPROL XL 50 MG PO (09:36)
[2025-05-16] MEDS: TORADOL 10 MG IV (09:41)
--- NOTE | 2025-05-16 09:57 | CM ---
Cm reviewed medical records. Patient lives independently. Patient plans to stay with his son post operatively. Patient does not have a history of VN, SNF or DME. Patient is active with his PCP. Patient has medication coverage. CM offered home care
services. Patient feels that he can handle ANTHONY drain care and has the support of his family. CM will remain available as needed.
Plan: Home with family support
[2025-05-16 11:00] VITALS: BP 100/50
[2025-05-16 12:09] LABS: Glucose - Point of Care 154 mg/dl (70-99)
[2025-05-16] MEDS: NOVOLOG FLEXPEN-LOW RESISTANCE SC (12:32)
[2025-05-16 15:05] VITALS: BP 125/56
--- NOTE | 2025-05-16 16:40 | W.PN.SURGUPD ---
Surgical Update
Surgical Update
pt doing very well post op
pain controlled today
[place] PO
passing flatus regularly
stable for d/c home
soft tissue swelling at incision reflective of redundant skin where hernia was protuberant. no seroma, no hematoma. abdominal wall closure palpably intact.
ANTHONY with lightening SSF
--- NOTE | 2025-05-16 16:44 | W.DS.TRANS ---
DC Summary - Vp Ancillary
-
Discharge Instructions:
Sleep Apnea Risk Intermediate
Discharge Diagnosis/Procedures open retrorectus mesh repair incisional hernias
Diet As tolerated,Diabetic, Carb Controlled
Additional Diets smaller meals after surgery as abdominal
bloating and distention may be common for the
first few days post op
Activity No strenuous activity
Additional Activity no lifting over 20lbs for 6 weeks pos top
Driving Restrictions no driving for 4-5 days or if using narcotics
Bathing Restrictions OK to Shower
Wound Care glue typically peels off in 2-3 weeks at
incision site. keep ANTHONY to bulb suctions. empty
and keep paper record of outputs 2x day and as
needed.
Instructions: How to care for a closed suction drain
Stand-Alone Forms:
Changes to Home Medications: No
Discharge Medications:
DC Medications w/original date entered in [employer]
apixaban 5 mg tablet (Eliquis) 2.5 mg PO BID 04/25/24
Held on 05/16/25. Instructions: Resume on 05/18/25. hold for 72hrs post op; resume 05/18/25 Evening
paroxetine HCl 20 mg tablet 20 mg PO HS 04/25/24
rosuvastatin 20 mg tablet 20 mg PO DAILY 04/25/24
sitagliptin phosphate 100 mg tablet (Januvia) 100 mg PO DAILY 04/25/24
aspirin 81 mg tablet 81 mg PO DAILY 05/08/25
metoprolol succinate 25 mg tablet,extended release 24 hr 25 mg PO . DAILY IN P.M. 05/08/25
metoprolol succinate 50 mg tablet,extended release 24 hr 50 mg PO .DAILY IN A.M. 05/08/25
acetaminophen 500 mg tablet 1,000 mg PO Q6H PRN pain 05/15/25
furosemide 40 mg tablet (Lasix) 40 mg PO ONCE PRN fluid retention 05/15/25
nitroglycerin 0.4 mg sublingual tablet 0.4 mg sublingual Q5-15M PRN chest pain 05/15/25
potassium 20 mg chewable tablet 20 mg PO ONCE PRN with lasix for fluid retention 05/15/25
oxycodone 5 mg tablet 5 mg PO Q4HPRN PRN breakthrough/severe pain #7 tabs 05/16/25
Home Medication Changes
apixaban 5 mg tablet (Eliquis) 2.5 mg PO BID
hold for 72hrs post op; resume 05/18/25 Evening
Pending Results: No
== END 2025-05-16 17:35 | disposition home or self-care (01) ==
LOC: SDS 06:33
PROVIDERS: ATTENDING PHYSICIAN Surgery; FAMILY PHYSICIAN Family Medicine
DX: K43.2 Incisional hernia without obstruction or gangrene (principal)
CPT/HCPCS: 49595; 80048; 82962; 85027; C1781